=== PATIENT | male | born 1970 | race African-American/Black ===

== ENCOUNTER 2017-07-25 05:59 | Day surgery (SDC) | payer OTHER ==
[2017-07-24 09:57] VITALS: BMI 38.3
[~2017-07-25 05:59] MED LIST: Cyclopentolate 1% Opth Drop 2 ML BOT FS SCH; EPINEPHrine 0.3 MG, Dextrose 50% 3 ML in Ophthalmic Irrigation Solution 500 ML FS SCH; Phenylephrine HCl 2.5% Ophth Soln 5 ML BOT FS SCH
[2017-07-25] MEDS ORDERED: Midazolam HCl 2 mg/2 ml Vial ONE (06:17)
[2017-07-25] MEDS ORDERED: Fentanyl 100 MCG/2 ML VIAL ONE (06:17)
[2017-07-25] MEDS ORDERED: Diprivan 20 ML ONE (06:17)
[2017-07-25] MEDS ORDERED: Lidocaine 0.5%/Epinephrine 1:200,000 50 ml Vial ONE (06:17)
[2017-07-25] MEDS ORDERED: Lidocaine 2% w/Epinephrine 1:200K 20 ML VIAL ONE (06:18)
[2017-07-25] MEDS ORDERED: Lidocaine 2% PF 5 ML VIAL ONE (06:19)
[2017-07-25] MEDS ORDERED: Cyclopentolate 1% Opth Drop 2 ML BOT ONE (06:20)
[2017-07-25] MEDS ORDERED: Phenylephrine HCl 2.5% Ophth Soln 5 ML BOT ONE (06:20)
--- NOTE | 2017-07-25 13:34 | OP ---
DATE OF PROCEDURE: 07/25/2017 PREOPERATIVE DIAGNOSIS: Tractional retinal detachment, right eye. POSTOPERATIVE DIAGNOSIS: Tractional retinal detachment, right eye. PROCEDURE: Pars plana vitrectomy and tractional retinal detachment repair, right eye. SURGEON: Truman Waddell M.D. ANESTHESIA: Local with monitored anesthesia care. PROCEDURE IN DETAIL: The patient was identified in the preoperative holding area. Appropriate infor med consent for the planned surgical procedure on the right eye had been obtained. The patient was t ransported to the operative suite where appropriate cardiopulmonary monitoring was established. Loca l anesthesia was obtained using retrobulbar and modified Van Lint lid block using 50/50 mixture of 4% lidocaine and 0.75% bupivacaine. The patient was prepped and draped in the usual sterile manner for ophthalmic surgery on the right eye. Lid speculum was placed in the right eye. The 25-gauge trocar s were placed in conjunctiva and sclera supratemporally, inferotemporally, and supranasally and rogelio cristiana was placed inferior nasally. Light pipe and vitreous cutter were inserted into the eye. Core of vitrectomy was performed. Vitreus space was trimmed back 360 degrees. Attention was turned to th e dense posterior ring of fibrosis causing tractional detachment on the surface. This was grasped at one end and peeled away from the retinal surface. Intraocular pressure was elevated for bleeding st op and then decreased revealed no further bleeding. Tear along the inferior temporal arcade and whol e supratemporal arcade were identified. Complete air fluid exchange was performed with 10 minutes be ing allowed for fluid to drain posteriorly. Dense subretinal fluid was removed from underneath the r etina in the right eye. Panretinal photocoagulation was also placed and the peripheral areas of the retina up to the edge of the subretinal fluid. Further fluid was drained and laser was placed up to the arcade vessels. Silicone oil was infused into the eye, trocars were removed and sclerotomy was s utured closed. Retrobulbar Kenalog and subconjunctival Ancef were placed. Antibiotic ointment was p laced, and the eye was patched and shielded. The patient was taken to the postoperative recovery uni t in good condition suffered no immediate complications. DISCHARGE INSTRUCTIONS: The patient was instructed to keep patch and shield on, avoid flat on back p ositioning, and follow up in the morning with Dr. Waddell.
[2017-07-25] MEDS ORDERED: Lidocaine 1% PF 5 ML VIAL ONE (17:13)
[2017-07-25] MEDS ORDERED: Propofol 200 MG/20 ML VIAL ONE (17:13)
== END 2017-07-25 09:20 | disposition home or self-care (01) ==
LOC: SDC 05:59
PROVIDERS: ATTEND Ophthalmology Retina Specialist
PROC: 08QE3ZZ Repair Right Retina, Percutaneous Approach (ICD-10-PCS; principal; 2017-07-25)
PROC: 08B43ZZ Excision of Right Vitreous, Percutaneous Approach (ICD-10-PCS; principal; 2017-07-25)
DX: H33.41 Traction detachment of retina, right eye (principal); E78.00 Pure hypercholesterolemia, unspecified; E11.9 Type 2 diabetes mellitus without complications; I10 Essential (primary) hypertension; D86.9 Sarcoidosis, unspecified; Z79.4 Long term (current) use of insulin; Z79.899 Other long term (current) drug therapy; Z98.890 Other specified postprocedural states
CPT/HCPCS: 36416; C1814; J0171; J2001; J2250; J2704; J3010

== ENCOUNTER 2018-06-09 22:36 | Inpatient (IN) | payer BC ==
[2018-06-09] MEDS ORDERED: Lorazepam 2 MG/ML VIAL ONE ×2 (23:10→23:42)
[2018-06-09] MEDS ORDERED: Midazolam HCl 5 mg/ml Vial ONE (23:13)
[2018-06-09 23:16] LABS: #Lymphocytes 1.1 thou/uL (1.20-3.40); #Monocytes 0.6 thou/uL (0.11-0.59); %Basophils 0.2 % (0.0-1.0); %Eosinophils 0.2 % (0.0-10.0); %Lymphocytes 11.3 % (21.0-51.0); %Monocytes 6.3 % (0.0-10.0); Hemoglobin 10.8 g/dL (14.0-18.0); Mean Corpuscular HGB CONC 31.1 g/dL (32.0-36.0); Mean Corpuscular Hemoglobin 25.4 pg (27.0-31.0); Mean Corpuscular Volume 81.8 fL (78.0-98.0); Mean Platelet Volume 8.8 fL (7.4-10.4); Platelet Count 148 thou/uL (130-400); RBC Distribution Width 13.7 % (11.5-14.5); Red Blood Cell (RBC) Count 4.26 mill/uL (4.70-6.10); White Blood Cell (WBC) Count 9.8 thou/uL (4.8-10.8)
[2018-06-09 23:35] LABS: ALT (SGPT) 17 U/L (8-55); AST (SGOT) 11 U/L (5-34); Albumin 3.4 g/dL (3.5-5.0); Alkaline Phosphatase 136 U/L (40-150); Anion Gap 13 mmol/L (10-20); BUN (Urea Nitrogen) 41 mg/dL (8.9-20.6); Bilirubin, Total 0.2 mg/dL (0.2-1.2); Calc. Creatinine Clearance 0 mL/min (70-130); Calcium 8.6 mg/dL (7.8-10.44); Carbon Dioxide 23 mmol/L (22-29); Chloride 96 mmol/L (98-107); Estimated GFR-MDRD 19; Phosphorus 4.6 mg/dL (2.3-4.7); Potassium 4.4 mmol/L (3.5-5.1); Protein, Total 6.4 g/dL (6.0-8.3); Sodium 128 mmol/L (136-145)
[2018-06-09] MEDS ORDERED: Insulin Regular 300 UNITS/3 ML VIAL ONE (23:35)
[2018-06-09 23:39] LABS: CKMB 4.7 ng/mL (0-6.6); Troponin I 0.013 ng/mL (< 0.028)
[2018-06-09 23:44] LABS: Bilirubin Negative (Negative); Blood, Urine Small (Negative); Clarity CLOUDY (Clear); Glucose, Urine (Dipstick) >=1000 mg/dL (Negative); Leukocyte Negative (Negative); Nitrite Negative (Negative); Protein, Urine (Dipstick) 300 mg/dL (Neg-Trace); Specific Gravity, Urine 1.024 (1.002-1.036); Urobilinogen 0.2 mg/dL (0.2-1.0); pH, Urine 5.5 (5.0-9.0)
[2018-06-09 23:45] LABS: Glucose 861 mg/dL (70-105)
[2018-06-09] MEDS ORDERED: Insulin Regular 100 units/100 ml in NS IVPB SCH (23:45)
[2018-06-09 23:46] LABS: Pathc Cast-AUWi Flag 1.16 (0-2.49)
[2018-06-10 00:01] LABS: Bacteria/HPF 1+ HPF (None Seen); Hyaline Casts/LPF NONE SEEN LPF (0-3 Hyaline); Oval Fat Bodies/HPF None Seen HPF (None Seen); Renal Epithelial 0-3 HPF (0-3); Sperm/HPF None Seen HPF (None Seen); Transitional Epithelial NONE SEEN HPF (0-3); Trichomonas/HPF None Seen HPF (None Seen); Yeast-All Forms None Seen HPF (None Seen)
--- NOTE | 2018-06-10 00:08 | CT ---
CT HEAD NONCONTRAST: 06/09/2018 HISTORY: Altered mental status. COMPARISON: None available. FINDINGS: There is no evidence of an acute cortical infarction, hemorrhage, mass effect, or midline shift. The ventricular system is normal in size, shape, and position. A small mucus retention cyst is seen in the right maxillary antrum. There is mild mucosal thickening in the left maxillary antrum. The mast oid air cells are clear. There is increased density seen within the right globe, which could be rela zhao to either hemorrhage within the right globe or prior injury. Clinical correlation is recommended . No prior studies are available to evaluate for stability. The calvarial structures are intact. IMPRESSION: 1. Increased density within the right globe, which could be related to prior post surgical changes o r possibly hemorrhage. Mass, right globe, is felt less likely, but also a differential consideration . 2. No acute intracranial abnormalities demonstrated. The above findings, concerning the right globe, were discussed with Dr. Gaviria on 06/09/2018 at 2359 hours. CODE CR POS: DAVID
[2018-06-10 00:10] LABS: Acetaminophen Less than 6.0 mcg/mL (10.0-30.0); Alcohol Less than 10 mg/dL (Less than 10); Salicylate Less than 8.0 mg/dL (15.0-30.0)
[2018-06-10 00:36] LABS: ALV-art Gradient 23.305 (0-20); Actual Bicarbonate (HCO3a) 19.8 mEq/L (22-28); Analyzer IN Cardio ER; Base Excess (BEa) -6.2 mEq/L (-2.0 to +3.0); CO2 Tension 40.9 mmHg (35.0-45.0); Calcium, Ionized 1.16 mmol/L (1.12-1.30); Carboxyhemoglobin (COHb) 0.1 gm% (0.0-3.0); Hemoglobin (Hb) 11.4 g/dL (14.0-18.0); O2 Tension (PaO2) 75.3 mmHg (80.0-100.0); Potassium - ABG Lab 3.88 mmol/L (3.70-5.30); Puncture Site RBA
[2018-06-10] MEDS ORDERED: Lorazepam 2 MG/ML VIAL ONE (00:37)
[2018-06-10] MEDS ORDERED: CCU Electrolyte Replacement 1 EACH IVPB ONE (00:56)
[2018-06-10] MEDS ORDERED: Sodium Chloride 0.9% 1,000 ML IV PRN ×4 (00:56)
[2018-06-10] MEDS ORDERED: Dextrose 5 %-0.45 % NaCl 1,000 ML IV PRN (00:56)
[2018-06-10] MEDS ORDERED: NS 0.9% w/ 20 MEQ KCL 1,000 ML IV PRN (00:56)
[2018-06-10] MEDS ORDERED: D5 1/2 NS w/20 mEq KCL 1,000 ML IV PRN (00:56)
[2018-06-10] MEDS ORDERED: Acetaminophen 325 MG TAB PO PRN (00:59)
[2018-06-10] MEDS ORDERED: Ondansetron ODT 4 MG TAB PO PRN (00:59)
[2018-06-10] MEDS ORDERED: Ondansetron PF 4 MG/2 ML Vial IVP PRN (00:59)
[2018-06-10 01:19] LABS: Osmolality, Serum 344 mOsm/kg (280-295)
[2018-06-10] MEDS ORDERED: Potassium Chloride 40 MEQ in Sodium Chloride 0.9% 250 ML 250 ML IVPB PRN (01:20)
[2018-06-10] MEDS ORDERED: Potassium Chloride 20 MEQ TAB PO PRN (01:20)
[2018-06-10] MEDS ORDERED: CCU ELECTROLYTE REPLACEMENT PROTOCOL FS PRN (01:20)
[2018-06-10] MEDS ORDERED: Potassium Phosphate 12 MMOL in Sodium Chloride 0.9% 250 ML 250 ML IV PRN (01:20)
[2018-06-10] MEDS ORDERED: Magnesium Oxide 400 MG TAB PO PRN ×2 (01:20)
[2018-06-10] MEDS ORDERED: Potassium Chloride 40 MEQ in Premix Bag 1 BAG IVPB PRN (01:20)
[2018-06-10] MEDS ORDERED: Magnesium 2 GM/NS 0.9% 100 ML 2 GM in Premix Bag 1 BAG IVPB PRN (01:20)
[2018-06-10] MEDS ORDERED: Potassium Phosphate 9 MMOL in Sodium Chloride 0.9% 100 ML IVPB PRN (01:20)
[2018-06-10] MEDS ORDERED: Potassium Phosphate 15 MMOL in Sodium Chloride 0.9% 250 ML 250 ML IV PRN (01:20)
[2018-06-10] MEDS ORDERED: Labetalol HCl 100 MG/20 ML VIAL ONE (01:34)
[2018-06-10 01:48] LABS: Hemoglobin A1c 15.3 % (4.0-6.0)
[2018-06-10 01:57] LABS: Anion Gap 20 mmol/L (10-20); BUN (Urea Nitrogen) 42 mg/dL (8.9-20.6); Calc. Creatinine Clearance 0 mL/min (70-130); Calcium 8.7 mg/dL (7.8-10.44); Carbon Dioxide 18 mmol/L (22-29); Chloride 103 mmol/L (98-107); Estimated GFR-MDRD 18; Potassium 3.6 mmol/L (3.5-5.1); Sodium 137 mmol/L (136-145)
[2018-06-10 01:58] LABS: Cardiac Risk 6.6 (Less than 4.5)
[2018-06-10 02:01] LABS: Glucose 674 mg/dL (70-105)
[2018-06-10] MEDS ORDERED: Nitroglycerin 50 MG/250 ML BOT 250 ML ONE (03:18)
[2018-06-10] MEDS: NS 0.9% w/ 20 MEQ KCL 1,000 ML IV PRN ×2 (03:27→05:41)
[2018-06-10] MEDS: Nitroglycerin 50 MG/250 ML BOT 250 ML IVPB SCH ×2 (03:28→11:55)
[2018-06-10 03:32] VITALS: BMI 37.3
[2018-06-10 04:59] LABS: Amphetamine Not Detected (NotDetected); Barbiturates Screen Not Detected (NotDetected); Benzodiazepine Screen Not Detected (NotDetected); Cocaine Metabolite Screen Not Detected (NotDetected); Medtox Control Line Valid? VALID (VALID); Medtox Reader # READER 1; Methadone Not Detected (NotDetected); Methamphetamine Not Detected (NotDetected); Opiate Screen Not Detected (NotDetected); Oxycodone Screen Not Detected (NotDetected); Phencyclidine (PCP) Not Detected (NotDetected); THC/Cannabinoid Screen Not Detected (NotDetected); Tricyclic Screen Not Detected (NotDetected)
[2018-06-10 06:04] LABS: #Lymphocytes 0.8 thou/uL (1.20-3.40); #Monocytes 0.7 thou/uL (0.11-0.59); #Neutrophils 14.5 thou/uL (1.40-6.50); %Basophils 0.3 % (0.0-1.0); %Eosinophils 0.2 % (0.0-10.0); %Lymphocytes 4.7 % (21.0-51.0); %Monocytes 4.6 % (0.0-10.0); %Neutrophils 90.3 % (42.0-75.0); Anion Gap 16 mmol/L (10-20); BUN (Urea Nitrogen) 39 mg/dL (8.9-20.6); Calc. Creatinine Clearance 41 mL/min (70-130); Calcium 8.8 mg/dL (7.8-10.44); Carbon Dioxide 20 mmol/L (22-29); Chloride 109 mmol/L (98-107); Estimated GFR-MDRD 20; Glucose 306 mg/dL (70-105); Hemoglobin 10.5 g/dL (14.0-18.0); Mean Corpuscular HGB CONC 31.8 g/dL (32.0-36.0); Mean Corpuscular Hemoglobin 24.7 pg (27.0-31.0); Mean Corpuscular Volume 77.8 fL (78.0-98.0); Mean Platelet Volume 12.4 fL (7.4-10.4); Platelet Count 193 thou/uL (130-400); RBC Distribution Width 13.8 % (11.5-14.5); Red Blood Cell (RBC) Count 4.23 mill/uL (4.70-6.10); Sodium 141 mmol/L (136-145)
[2018-06-10 06:35] LABS: Albumin 3.4 g/dL (3.5-5.0); Anion Gap 15 mmol/L (10-20); BUN (Urea Nitrogen) 39 mg/dL (8.9-20.6); BUN/Creatinine Ratio 10.16; Calc. Creatinine Clearance 41 mL/min (70-130); Calcium 8.8 mg/dL (7.8-10.44); Carbon Dioxide 20 mmol/L (22-29); Chloride 110 mmol/L (98-107); Estimated GFR-MDRD 20; Glucose 314 mg/dL (70-105); Potassium 3.9 mmol/L (3.5-5.1); Sodium 141 mmol/L (136-145)
[2018-06-10] MEDS: Enoxaparin Sodium 30 MG/0.3 ML SYRINGE SC SCH (08:26)
[2018-06-10] MEDS ORDERED: Famotidine/PF 20 mg/2ml Vial SLOW IVP SCH (09:00)
[2018-06-10 09:26] LABS: Anion Gap 10 mmol/L (10-20); BUN (Urea Nitrogen) 38 mg/dL (8.9-20.6); Calc. Creatinine Clearance 43 mL/min (70-130); Calcium 8.4 mg/dL (7.8-10.44); Carbon Dioxide 23 mmol/L (22-29); Chloride 112 mmol/L (98-107); Estimated GFR-MDRD 21; Glucose 227 mg/dL (70-105); Potassium 4.1 mmol/L (3.5-5.1); Sodium 141 mmol/L (136-145)
--- NOTE | 2018-06-10 09:40 | RAD ---
PORTABLE CHEST: History: CCU follow up. Comparison: 02-28-18 FINDINGS/IMPRESSION: Poor inspiration. Mild cardiomegaly and vascular engorgement. No focal infiltrate or significant effu anne. POS: DAVID
[2018-06-10 10:56] LABS: Base Excess-Venous -15.1 mmol/L (0 (+/- 2.5)); Bicarbonate (HCO3v) 15.4 mmol/L (1.0-85.0); CO2 Tension (PvCO2) 54.2 mmHg (41.0-51.0); Calcium, Ionized 1.14 mmol/L (1.12-1.32); Hemoglobin - Calc 13.6 g/dL (12.0-18.0); Lactate 13.77 mmol/L (0.50-2.20); Potassium 3.4 mmol/L (3.4-4.7); vO2 Saturation-calc 65.3 % (94-98)
--- NOTE | 2018-06-10 11:08 | CON ---
DATE OF CONSULTATION: 06/10/2018 REASON FOR CONSULTATION: Elevated creatinine. HISTORY OF PRESENT ILLNESS: This is a 47-year-old gentleman who was admitted for hyperosmotic nonket otic coma. The patient's creatinine was 4.1 and has improved to 3.6 today. The patient is nonverbal and can give no further history. PAST MEDICAL HISTORY: Chronic kidney disease, hypertension, diabetes mellitus. The patient has some mental status changes. The patient has history of sarcoidosis. PAST SURGICAL HISTORY: Knee and shoulder surgery. SOCIAL HISTORY: No alcohol or drug use. FAMILY HISTORY: Negative for ESRD. HOME MEDICATIONS: List reviewed. HOSPITAL MEDICATIONS: List reviewed. REVIEW OF SYSTEMS: Unobtainable. PHYSICAL EXAMINATION: GENERAL: Patient is resting. VITAL SIGNS: Afebrile, pulse 90, breathing 16, blood pressure 224/180. OBJECTIVE: See above. Awake, alert, in no acute distress. GENERAL APPEARANCE AND MENTAL STATUS: Fair. HEAD/NECK: Normocephalic. Atraumatic. EYES: EOMI. No deformity. EARS: Clear. No ulcers. NOSE: Intact. No lesions. MOUTH: Clear. No discharge. THROAT: Clear. No exudate. LUNGS: Clear. No crackles. CARDIAC: S1, S2. No rub. ABDOMEN: Benign. BS+. GENITALIA/RECTUM: Schmidt absent. BACK/EXTREMITIES: Edema 0+ Ulcer- NEUROLOGICAL: The patient is nonverbal and cannot obey commands. SKIN: Rash- Bruise- LYMPHATICS: Edema- Ulcer- LABORATORY DATA: Creatinine 3.6. ASSESSMENT AND RECOMMENDATIONS: 1. Acute kidney with chronic kidney disease, stage 4, stable. 2. Hypertension, management per primary team. 3. Anemia, stable. 4. Medication based on glomerular filtration rate are appropriate. No indication for dialysis at th is time.
[2018-06-10 11:46] LABS: Glucose Greater than 700.0 mg/dL (70-105)
[2018-06-10] MEDS: Piperacillin/Tazobactam 2.25 GM in Sodium Chloride 0.9% 100 ML IVPB SCH ×2 (11:56→17:18)
--- NOTE | 2018-06-10 12:03 | HP ---
CHIEF COMPLAINT: Alteration of awareness. HISTORY OF PRESENT ILLNESS: This is a 47-year-old male with past medical history of diabetes mellitus type 2, hypertension, hyperlipidemia, presenting with alteration of awareness. Per the , patient was last seen well around 8 :00 a.m. prior to the time of admission. Patient's states that patient was walking in the house acting very unusual. Patient was confused for about 1.5 hours and patient was opening doors and closing doors and this was very unusual. Therefore, the became very concerned and called EMS. Upon review of the patient's chart, it was also noted that patient also vomited earlier during the day on the day of the admission. Of note, per the , patient has always had hyperglycemia. patient takes his medications, patient is always around the 400s. 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 At this point, patient is altered and confused. REVIEW OF SYSTEMS: Unable to be obtained, since patient is confused. PAST MEDICAL HISTORY: Hyperlipidemia, hypertension, sarcoidosis, diabetes mellitus type 2. PAST SURGICAL HISTORY: Bilateral knee surgery and left shoulder surgery. FAMILY HISTORY: Reviewed, noncontributory. PSYCHIATRIC HISTORY: No previous psychiatric history noted. SOCIAL HISTORY: Per records, patient does not use any illicit drugs. Patient does not smoke and patient does not drink. ALLERGIES: Per records, no known drug allergies. CURRENT MEDICATIONS: 1. Patient takes Lantus 100 units subcutaneous, patient takes 40 units b.i.d. 2. Humulin R 120 units. 3. Compazine. 4. Clonidine. 5. Dicyclomine. 6. Torsemide. 7. Dexilant. 8. Amoxicillin. PHYSICAL EXAMINATION: VITAL SIGNS: Blood pressure is 224/118, pulse of 98, respiratory rate of 14, temperature of 99.0, O2 saturation of 96 on room air. GENERAL: Patient is currently obtunded, lying in bed, snoring, obese looking. HEENT: Normocephalic, atraumatic. Pupils are equally round and reactive to light in the left eye and the left eye is sluggish; however, the right eye is more responsive to light. Patient is blind in the right eye. Mucous membranes are dry. NECK: Large neck circumference noted. No cervical lymphadenopathy. RESPIRATORY: Clear to auscultation bilaterally. No wheezing, no rales appreciated. CARDIOVASCULAR: Positive S1, S2. Regular rate and rhythm. No murmurs. No gallops or rubs appreciated. ABDOMEN: Obese abdomen, no palpable masses. No peritoneal signs seen. EXTREMITIES: 5/5 upper extremity strength and 5/5 lower extremity strength. Good pulses bilaterally at the upper and lower extremities. NEUROLOGIC: Patient is confused at this time. GCS of 9. IMAGING: EKG sinus rhythm. CT of the head, no acute intracranial pathology. ED COURSE: Patient received labetalol, Versed injection, Humulin R, Ativan injection, and normal chloride. LABORATORY DATA: White blood cell count is 9.8, hemoglobin is 10.8, hematocrit is 34.9, platelet is 148. ABG: pH is 7.3, pCO2 is 40.9, pO2 is 75.3, O2 saturation is 92. Toxicology is negative. Chemistry: Sodium is 128, potassium is 4.4, chloride is 96, carbon dioxide is 23, BUN is 41, creatinine is 4.10, GFR is 22, glucose is 861. Lactic acid is 1.0. AST, ALT 11 and 17. Troponin x1 is 0.013. ASSESSMENT AND PLAN: This is a 47-year-old male being admitted for: 1. Hyperosmolar hyperglycemic syndrome. At this point, patient has been started on diabetic ketoacidosis protocol. We are going to admit the patient to the CCU. We are going to monitor the patient closely. We will do BMP every 4 hours. We will follow up on electrolytes. We will replete all electrolytes. We will give patient IV hydration. We will monitor the patient closely. We will consider starting antibiotics if patient spikes a fever or if patient's WBC elevates, we will follow up on the morning labs. 1. Acute kidney injury, likely prerenal in etiology. At this time, patient's GFR is 22, we will start patient on gentle hydration. We will get Nephrology on the case. Because patient is encephalopathic, We are very concern for possible uremia. We will continue to monitor the patient closely. 2. Encephalopathy, most likely metabolic. At this point, we are managing the patient supportively. Nephrology is on consult. We will follow up with their recommendations. CT scan of the head is negative. We will replete all electrolyte abnormalities, we will trend creatinine. 3. History of diabetes mellitus, type 2, uncontrolled. At this point, patient is on insulin sliding scale. It will be very important for patient's blood glucose to be strictly controlled between 140-180. 4. History of hypertension, uncontrolled. Currently, we started patient on nitro drip, since the patient's blood pressure is elevated at 235 systolic. 5. Hypertensive encephalopathy. Patient is currently on nitro drip. We will continue this nitro drip to bring patient's blood pressure around 180 systolic. We will continue this current medication. We will continue this current management. 6. Deep venous thrombosis and gastrointestinal prophylaxis. MTDD
[2018-06-10] MEDS ORDERED: cefTRIAXone\\ROCEPHIN 1 GM in Sodium Chloride 0.9% 100 ML IVPB SCH (13:15)
[2018-06-10 14:53] LABS: Lactic Acid 1.2 mmol/L (0.5-2.2)
[2018-06-10] MEDS: Sodium Chloride 0.45% 1,000 ML IV SCH (16:15)
--- NOTE | 2018-06-10 16:45 | PDOC.EVN ---
Event Note - Event Note Event Note: Chart reviewed. Pt seen. Will follow.
--- NOTE | 2018-06-10 17:21 | CON ---
DATE OF CONSULTATION: 06/10/2018 HISTORY OF PRESENT ILLNESS: Mr. Jacobs is a 47-year-old male. History is obtained from the family. He has a long history of diabetes type 2 since he was in his 20s. He was managed for several years with oral agents and then insulin was added. He is followed by a primary care doctor at [facility]. He presented with altered mental status. His and his mother were at the bedside to give a history. He is still confused. Blood glucoses were over 800. He was placed on a DKA protocol, so his sugars have come down rapidly. We decreased his insulin dosing, especially in light of his renal insufficiency. His says he is blind in his right eye. She implies that he does not always check his blood sugars but does take his medicine. He has had no recent illness. He has been febrile since admission. I see blodd cultures ordered, but I cannot tell whether they have been collected from the computer. PAST MEDICAL HISTORY: Remarkable for hypertension and reportedly history of sarcoid, diabetes, lipid disorder, knee surgery, and shoulder surgery. SOCIAL HISTORY: Nonsmoker, nondrinker, nondrug user. MEDICATIONS: Prior to admission, he was on 80 units of Lantus a day for a total reportedly of 120 units of Humulin R, Compazine, clonidine, dicyclomine, Demadex, Dexilant, reportedly was on amoxicillin on admission. REVIEW OF SYSTEMS: Not obtainable. FAMILY HISTORY: Negative for lung disease at an early age. PHYSICAL EXAMINATION: VITAL SIGNS: He was apparently very hypertensive early in his admission with blood pressures as high as 213/91, blood pressure is better, but less than ideal at 178/94. He will open his eyes yes and no to questions but goes quickly back to sleep. Heart rate is 112, respiratory rates in the low 20s. NECK: Supple, no lymphadenopathy. LUNGS: Clear. HEART: Regular rhythm. I do not hear a murmur. ABDOMEN: Soft and nontender. EXTREMITIES: No clubbing, cyanosis, or edema. LABORATORY DATA: White count 16, hemoglobin 10.5, platelets 193. Sodium 141, potassium 4.1, chloride 112, bicarbonate 23, BUN 38, creatinine 3.68. IMPRESSION: 1. Hyperosmolar coma. We need to slow down on his insulin with his renal insufficiency. Continue with hydration paying careful attention to his volume status. 2. Sleep apnea. He is reportedly compliant with therapy at home. His did not bring his CPAP up. We will place him on BiPAP empirically. I do not have a copy of his sleep study to review. 3. Poorly controlled diabetes with a hemoglobin A1c of 15. He is already blind in an eye and has renal insufficiency. As I have explained to the family, we will have to become more compulsive about managing his glucose. Weight loss is absolutely imperative. We will currently treat him and keep him in the Critical Care Unit. Critical care time, 30 minutes. MARK
[2018-06-10] MEDS: Acetaminophen 1,000 MG in Premix Bag 1 BAG IVPB PRN (21:14)
[2018-06-11] MEDS: Piperacillin/Tazobactam 2.25 GM in Sodium Chloride 0.9% 100 ML IVPB SCH ×4 (00:48→17:16)
[2018-06-11] MEDS: Nitroglycerin 50 MG/250 ML BOT 250 ML IVPB SCH (00:52)
[2018-06-11] MEDS: Sodium Chloride 0.45% 1,000 ML IV SCH ×2 (03:37→11:50)
[2018-06-11] MEDS: Acetaminophen 1,000 MG in Premix Bag 1 BAG IVPB PRN (04:13)
[2018-06-11 06:23] LABS: Anion Gap 10 mmol/L (10-20); BUN (Urea Nitrogen) 31 mg/dL (8.9-20.6); Calc. Creatinine Clearance 37 mL/min (70-130); Calcium 8.5 mg/dL (7.8-10.44); Carbon Dioxide 20 mmol/L (22-29); Chloride 111 mmol/L (98-107); Estimated GFR-MDRD 18; Glucose 391 mg/dL (70-105); Potassium 4.4 mmol/L (3.5-5.1); Sodium 137 mmol/L (136-145)
[2018-06-11] MEDS: Amlodipine 10 MG TAB PO SCH (09:08)
[2018-06-11] MEDS: Famotidine 20 MG TAB PO SCH (09:08)
[2018-06-11] MEDS: Enoxaparin Sodium 30 MG/0.3 ML SYRINGE SC SCH (09:08)
[2018-06-11] MEDS ORDERED: Insulin Glargine 20 UNITS in Pre-Filled Syringe 1 EACH SC SCH (10:00)
[2018-06-11] MEDS ORDERED: Dextrose 5% in Water 1,000 ML IV PRN (10:09)
[2018-06-11] MEDS ORDERED: Dextrose 50% Abboject 50 ML SYRINGE IVP PRN (10:09)
[2018-06-11] MEDS ORDERED: Insulin Regular 300 UNITS/3 ML VIAL IVP SCH (10:15)
[2018-06-11] MEDS ORDERED: cloNIDine 0.1 MG TAB PO SCH (11:05)
[2018-06-11] MEDS: cloNIDine 0.1 MG TAB PO SCH ×2 (11:43→21:22)
[2018-06-11] MEDS: Doxazosin Mesylate 4 MG TAB PO SCH ×2 (11:45→11:50)
--- NOTE | 2018-06-11 12:03 | PRG ---
DATE OF SERVICE: 06/11/2018 SUBJECTIVE: A 47-year-old gentleman being seen for acute kidney injury. The patient remains oliguri c. PHYSICAL EXAMINATION: GENERAL: The patient is awake, alert. VITAL SIGNS: Pulse 100, breathing 16, blood pressure 132/96. OBJECTIVE: See above. Awake, alert, in no acute distress. GENERAL APPEARANCE AND MENTAL STATUS: Fair. HEAD/NECK: Normocephalic. Atraumatic. EYES: EOMI. No deformity. EARS: Clear. No ulcers. NOSE: Intact. No lesions. MOUTH: Clear. No discharge. THROAT: Clear. No exudate. LUNGS: Clear. No crackles. CARDIAC: S1, S2. No rub. ABDOMEN: Benign. BS+. GENITALIA/RECTUM: Schmidt absent. BACK/EXTREMITIES: Edema 0+ Ulcer- NEUROLOGICAL: The patient is aphasic. SKIN: Rash- Bruise- LYMPHATICS: Edema- Ulcer- LABORATORY: Hemoglobin 10.5, creatinine 4.2. ASSESSMENT AND RECOMMENDATIONS: 1. Chronic kidney disease stage 4, stable. 2. Hypertension, stable. 3. Anemia, stable. 4. Acute kidney injury, most likely due to progressive diabetic disease.
--- NOTE | 2018-06-11 15:40 | ULT ---
BILATERAL RENAL ULTRASOUND: Technique: Multiple longitudinal and transverse images of the kidneys and urinary bladder obtained us ing a multihertz curvilinear transducer. History: Acute renal insufficiency. FINDINGS: Real-time and color flow images demonstrates both kidneys to be of normal contour, axis and size. Rig ht kidney measures 12.0 and left kidney 11.7 cm from pole to pole. There is an area of hypoechogenicity seen in the lower pole of the left kidney. This may represent a possible lower pole left renal cyst. Correlate with follow up repeat images to confirm stability in 4 -6 months. There is an indwelling Schmidt catheter. IMPRESSION: No evidence of hydronephrosis. There may be a lower pole left renal cyst or hypodense solid mass. Cor relate with follow up images. POS: DAVID
--- NOTE | 2018-06-11 15:47 | PRG ---
DATE OF SERVICE: 06/11/2018 Mr. Jacobs is more alert. He wore BiPAP all evening, we had taken off this morning with plan to switch him to where he just wears it with sleep. PHYSICAL EXAMINATION: His hemodynamics are stable. LUNGS: Clear. CARDIOVASCULAR: Regular rhythm. ABDOMEN: Soft. EXTREMITIES: Without asymmetry. Renal function is deteriorated. His creatinine is 4.25. Sodium 137, potassium 4.4, chloride 111, bicarbonate 20, BUN 31. Nephrology was consulted. He has been given IV insulin, started on long-acting insulin. Blood glucoses are drifting up. He will be treated with sliding scale. The patient's showed me a picture of him 2 years ago and he was actually very slender muscular gentleman. It may be that for various reasons, he is on too much insulin, so will gradually pushing back into increasing doses of insulin until he is reasonably well controlled. He is at risk for renal failure in the near future. He is already blind in one eye. Even with aggressive diabetes control, his quality of life over the next few years is probably going to be quite poor. We will keep him in the Critical Care Unit at this time. MARK
[2018-06-11] MEDS: Insulin Regular 300 UNITS/3 ML VIAL SC PRN ×2 (16:25→21:20)
--- NOTE | 2018-06-11 18:09 | PDOC.PN ---
- Subjective Encounter Start Date: 06/11/18 Encounter Start Time: 10:40 Pt seen for followup re: HHNC. Sleepy but arousable, denies chest pain, shortness of breath, fevers or chills. - Objective Resuscitation Status: Resuscitation Status FULL:Full Resuscitation MAR Reviewed: Yes Vital Signs & Weight: Vital Signs (12 hours) Temp Pulse BP Pulse Ox 06/11/18 16:00 99.4 F 06/11/18 12:00 99.6 F 06/11/18 11:44 111 H 133/96 H 06/11/18 11:43 172/106 H 06/11/18 11:40 111 H 133/96 H 06/11/18 09:08 120 H 133/96 H 06/11/18 08:00 100.0 F H 100 Weight Weight 275 lb 2.19 oz Most Recent Monitor Data Heart Rate from ECG 88 NIBP 135/73 NIBP BP-Mean 93 Respiration from ECG 16 SpO2 100 I&O: 06/10/18 06/11/18 06/12/18 06:59 06:59 06:59 Intake Total 1247.6 3605 1541.8 Output Total 865 2805 1600 Balance 382.6 800 -58.2 Result Diagrams: 06/10/18 05:08 06/11/18 05:17 Additional Labs: Accuchecks 06/11/18 06/11/18 06/11/18 16:23 11:50 08:16 POC Glucose 496 H 412 H 431 H 06/11/18 06/11/18 06/11/18 07:09 06:06 04:04 POC Glucose 390 H 383 H 350 H 06/11/18 06/11/18 06/10/18 02:03 00:49 22:20 POC Glucose 311 H 373 H 328 H 06/10/18 06/10/18 20:20 18:31 POC Glucose 312 H 302 H EKG Reviewed by me: Yes (Tele: NSR) Phys Exam - Physical Examination Obese HEENT: moist MMs, sclera anicteric, oral pharynx no lesions, 2+ tonsils Neck: no nodes, no JVD, supple, full ROM Respiratory: no wheezing, no rales, no rhonchi, clear to auscultation bilateral Cardiovascular: RRR, no rub S1, S2 Gastrointestinal: soft, non-tender, positive bowel sounds distention Neurological: moves all 4 limbs Deviation from normal: Unable to assess affect or orientation to person, place or time Dx/Plan (1) HHNC (hyperglycemic hyperosmolar nonketotic coma) Code(s): E11.01 - TYPE 2 DIABETES MELLITUS WITH HYPEROSMOLARITY WITH COMA Status: Acute Comment: slowly improving (2) CKD (chronic kidney disease) stage 4, GFR 15-29 ml/min Code(s): N18.4 - CHRONIC KIDNEY DISEASE, STAGE 4 (SEVERE) Status: Chronic Comment: hold nephrotoxic meds, nephrology following (3) HTN (hypertension) Code(s): I10 - ESSENTIAL (PRIMARY) HYPERTENSION Status: Chronic Comment: controlled (4) Sarcoidosis Code(s): D86.9 - SARCOIDOSIS, UNSPECIFIED Status: Chronic Comment: stable - Plan * . Review of Systems - Medications/Allergies Allergies/Adverse Reactions: Allergies Allergy/AdvReac Type Severity Reaction Status Date / Time No Known Allergies Allergy Verified 07/24/17 09:57 Medications: Current Medications Acetaminophen (Tylenol) 650 mg PO Q4H PRN PRN Reason: Headache/Fever/Mild Pain (1-3) Amlodipine Besylate (Norvasc) 10 mg PO DAILY [facility] Last Admin: 06/11/18 09:08 Dose: 10 mg Clonidine (Catapres) 0.1 mg PO TID [facility] Last Admin: 06/11/18 11:43 Dose: 0.1 mg Dextrose/Water (Dextrose 50%) 25 gm IVP PRN PRN PRN Reason: HYPOGLYCEMIA PROTOCOL Diltiazem HCl (Cardizem Cd) 120 mg PO DAILY [facility] Last Admin: 06/11/18 11:44 Dose: 120 mg Doxazosin Mesylate (Cardura) 8 mg PO DAILY [facility] Last Admin: 06/11/18 11:43 Dose: 8 mg Enoxaparin Sodium (Lovenox) 30 mg SC 0900 [facility] Last Admin: 06/11/18 09:08 Dose: 30 mg Famotidine (Pepcid) 20 mg PO DAILY [facility] Last Admin: 06/11/18 09:08 Dose: 20 mg Glucagon (Glucagon) 1 mg IM PRN PRN PRN Reason: HYPOGLYCEMIA PROTOCOL Insulin Human Regular 100 (units/ Sodium Chloride) 101 mls @ 0 mls/hr IVPB INF JANETTE; Protocol Last Admin: 06/10/18 06:32 Dose: 101 mls Sodium Chloride (Normal Saline 0.9%) 1,000 mls @ 500 mls/hr IV .Q2H PRN; Protocol PRN Reason: Step 1 of DKA Protocol Sodium Chloride (Normal Saline 0.9%) 1,000 mls @ 1,000 mls/hr IV .Q1H PRN; Protocol PRN Reason: Step 1 of DKA Protocol Sodium Chloride (Normal Saline 0.9%) 1,000 mls @ 250 mls/hr IV .Q4H PRN; Protocol PRN Reason: SEE STEP 3 OF DKA PROTOCOL Sodium Chloride (Normal Saline 0.9%) 1,000 mls @ 500 mls/hr IV .Q2H PRN; Protocol PRN Reason: Step 2 of DKA Protocol Potassium Chloride/Sodium Chloride (Ns 0.9% W/ 20 Meq Kcl) 1,000 mls @ 500 mls/ hr IV .Q2H PRN; Protocol PRN Reason: Step 2 of DKA Protocol Last Admin: 06/10/18 05:41 Dose: 1,000 mls Potassium Chloride/Sodium Chloride (Ns 0.9% W/ 20 Meq Kcl) 1,000 mls @ 250 mls/ hr IV .Q4H PRN; Protocol PRN Reason: SEE STEP 3 OF DKA PROTOCOL Nitroglycerin/Dextrose (Nitroglycerin 50 Mg/250 Ml Bot) 250 mls @ 0 mls/hr IVPB INF JANETTE; Protocol Last Admin: 06/11/18 00:52 Dose: 250 mls Piperacillin Sod/Tazobactam (Sod 2.25 gm/ Sodium Chloride) 100 mls @ 200 mls/ hr IVPB Q6HR JANETTE Last Admin: 06/11/18 17:16 Dose: 100 mls Sodium Chloride (1/2 Normal Saline) 1,000 mls @ 100 mls/hr IV .Q10H JANETTE Last Admin: 06/11/18 11:50 Dose: 1,000 mls Acetaminophen 1,000 mg/ Device 100 mls @ 400 mls/hr IVPB Q6H PRN PRN Reason: Fever Stop: 06/11/18 21:02 Last Admin: 06/11/18 04:13 Dose: 100 mls Insulin Glargine 20 units/ (Miscellaneous Medication) 0.2 mls @ 0 mls/hr SC QAM JANETTE Dextrose/Water (D5w) 1,000 mls @ 0 mls/hr IV INF PRN PRN Reason: HYPOGLYCEMIA PROTOCOL Insulin Human Regular (Humulin R) 0 units SC .MODERATE SLIDING SC PRN; Protocol PRN Reason: MODERATE SLIDING SCALE Last Admin: 06/11/18 16:25 Dose: 10 units Miscellaneous Medication (Pharmacy To Dose) 1 each IVPB PRN PRN PRN Reason: Pharmacy to dose Ondansetron HCl (Zofran Odt) 4 mg PO Q6H PRN PRN Reason: Nausea/Vomiting Ondansetron HCl (Zofran) 4 mg IVP Q6H PRN PRN Reason: Nausea/Vomiting Sodium Chloride (Flush - Normal Saline) 10 ml IVF Q12HR JANETTE Last Admin: 06/11/18 10:39 Dose: 10 ml Sodium Chloride (Flush - Normal Saline) 10 ml IVF PRN PRN PRN Reason: Saline Flush
[2018-06-11] MEDS: Heparin 5,000 UNITS/ML VIAL SC SCH (21:17)
[2018-06-12] MEDS: Sodium Chloride 0.45% 1,000 ML IV SCH ×3 (00:03→15:23)
[2018-06-12] MEDS: Amlodipine 10 MG TAB PO SCH (05:27)
[2018-06-12] MEDS: Piperacillin/Tazobactam 2.25 GM in Sodium Chloride 0.9% 100 ML IVPB SCH ×3 (05:28→11:14)
[2018-06-12] MEDS: cloNIDine 0.1 MG TAB PO SCH ×3 (05:29→20:13)
[2018-06-12 05:33] LABS: Anion Gap 11 mmol/L (10-20); BUN (Urea Nitrogen) 35 mg/dL (8.9-20.6); Calc. Creatinine Clearance 35 mL/min (70-130); Calcium 8.8 mg/dL (7.8-10.44); Carbon Dioxide 22 mmol/L (22-29); Chloride 112 mmol/L (98-107); Estimated GFR-MDRD 17; Glucose 350 mg/dL (70-105); Potassium 4.3 mmol/L (3.5-5.1); Sodium 141 mmol/L (136-145)
[2018-06-12] MEDS ORDERED: Doxazosin Mesylate 4 MG TAB PO SCH ×2 (05:45→09:00)
[2018-06-12] MEDS: Insulin Regular 300 UNITS/3 ML VIAL SC PRN ×5 (05:49→20:15)
[2018-06-12] MEDS ORDERED: Artificial Tears 18 DROP/0.9 ML EA EYE PRN (08:26)
[2018-06-12] MEDS ORDERED: Senokot S 8.6-50 MG TAB PO PRN (08:26)
[2018-06-12] MEDS ORDERED: Loperamide HCl 2 MG CAP PO PRN (08:26)
[2018-06-12] MEDS ORDERED: Sodium Chloride 0.65% Nasal 44 ML BOT EA NARE PRN (08:26)
[2018-06-12] MEDS ORDERED: Loratadine 10 MG TAB PO PRN (08:26)
[2018-06-12] MEDS ORDERED: Eucerin (Mineral Oil/Petrolatum,White) 30 gm Jar TOP PRN (08:26)
[2018-06-12] MEDS ORDERED: Temazepam 15 MG CAP PO PRN (08:26)
[2018-06-12] MEDS ORDERED: Acetaminophen 500 MG TAB PO PRN (08:26)
[2018-06-12] MEDS ORDERED: Bisacodyl 10 MG SUPP PR PRN (08:26)
[2018-06-12] MEDS ORDERED: Diabetic Tussin 200 MG/10 ML UDCUP PO PRN (08:26)
[2018-06-12] MEDS: Heparin 5,000 UNITS/ML VIAL SC SCH ×3 (08:29→20:13)
[2018-06-12] MEDS: Doxazosin Mesylate 4 MG TAB PO SCH (08:32)
[2018-06-12] MEDS: Famotidine 20 MG TAB PO SCH (08:32)
[2018-06-12] MEDS ORDERED: Insulin Glargine 20 UNITS in Pre-Filled Syringe 1 EACH SC SCH (09:00)
[2018-06-12] MEDS ORDERED: Sodium Chloride 0.9% 1,000 ML IV SCH (09:15)
[2018-06-12] MEDS: Insulin Glargine 30 UNITS in Pre-Filled Syringe 1 EACH SC SCH (09:29)
--- NOTE | 2018-06-12 11:01 | PDOC.PN ---
- Subjective Encounter Start Date: 06/12/18 Encounter Start Time: 09:25 -: old records requested/rev Patient seen and examined. No new complaints. No overnight events - Objective Resuscitation Status: Resuscitation Status FULL:Full Resuscitation MAR Reviewed: Yes Vital Signs & Weight: Vital Signs (12 hours) Temp Pulse Resp BP Pulse Ox 06/12/18 09:51 98.8 F 06/12/18 09:40 78 182/98 H 06/12/18 09:39 78 182/98 H 06/12/18 07:44 100 06/12/18 05:29 185/99 H 06/12/18 05:28 90 185/99 H 06/12/18 05:27 90 185/99 H 06/12/18 03:57 99.0 F 06/12/18 02:55 97 14 100 06/12/18 00:00 98.8 F Weight Weight 275 lb 2.19 oz Most Recent Monitor Data Heart Rate from ECG 76 NIBP 158/90 NIBP BP-Mean 112 Respiration from ECG 14 SpO2 100 I&O: 06/11/18 06/12/18 06/13/18 06:59 06:59 06:59 Intake Total 3605 2916.8 480 Output Total 2805 3520 675 Balance 800 -603.2 -195 Result Diagrams: 06/10/18 05:08 06/12/18 04:27 Additional Labs: Accuchecks 06/12/18 06/11/18 06/11/18 08:19 21:16 16:23 POC Glucose 352 H 386 H 496 H 06/11/18 06/11/18 11:50 00:49 POC Glucose 412 H 373 H Radiology Reviewed by me: Yes EKG Reviewed by me: Yes (nsr) Phys Exam - Physical Examination Constitutional: NAD HEENT: PERRLA, moist MMs, sclera anicteric Neck: no JVD, supple Respiratory: no wheezing, no rales, no rhonchi Cardiovascular: RRR, no significant murmur, no rub Gastrointestinal: soft, non-tender, no distention, positive bowel sounds Musculoskeletal: no edema, pulses present Neurological: non-focal, normal sensation Lymphatic: no nodes Psychiatric: normal affect Skin: no rash, normal turgor Dx/Plan (1) HHNC (hyperglycemic hyperosmolar nonketotic coma) Code(s): E11.01 - TYPE 2 DIABETES MELLITUS WITH HYPEROSMOLARITY WITH COMA Status: Acute Comment: slowly improving (2) CKD (chronic kidney disease) stage 4, GFR 15-29 ml/min Code(s): N18.4 - CHRONIC KIDNEY DISEASE, STAGE 4 (SEVERE) Status: Chronic Comment: hold nephrotoxic meds, nephrology following (3) Dyslipidemia Code(s): E78.5 - HYPERLIPIDEMIA, UNSPECIFIED Status: Chronic (4) HTN (hypertension) Code(s): I10 - ESSENTIAL (PRIMARY) HYPERTENSION Status: Chronic Comment: controlled (5) Sarcoidosis Code(s): D86.9 - SARCOIDOSIS, UNSPECIFIED Status: Chronic Comment: stable - Plan cont current plan of care * continue IVF * continue empiric zosyn * medication reviewed * today lantus dose increase * medication reviewed as below * symptomatic treatment * overall stable * will consider transfer to floor when pulmonary ok. Review of Systems - Review of Systems Other: not reliable with pt due to his current alertness and slow to respond - Medications/Allergies Allergies/Adverse Reactions: Allergies Allergy/AdvReac Type Severity Reaction Status Date / Time No Known Allergies Allergy Verified 07/24/17 09:57 Medications: Current Medications Acetaminophen (Tylenol) 500 mg PO Q6H PRN PRN Reason: Mild Pain (1-3) Amlodipine Besylate (Norvasc) 10 mg PO DAILY [facility] Last Admin: 06/12/18 05:27 Dose: 10 mg Artificial Tears (Tears Naturale) 2 drop EA EYE PRN PRN PRN Reason: Dry Eyes Bisacodyl (Dulcolax) 10 mg [place] DAILYPRN PRN PRN Reason: Constipation Clonidine (Catapres) 0.1 mg PO TID [facility] Last Admin: 06/12/18 05:29 Dose: 0.1 mg Dextrose/Water (Dextrose 50%) 25 gm IVP PRN PRN PRN Reason: HYPOGLYCEMIA PROTOCOL Diltiazem HCl (Cardizem Cd) 120 mg PO DAILY [facility] Last Admin: 06/12/18 05:28 Dose: 120 mg Doxazosin Mesylate (Cardura) 8 mg PO DAILY [facility] Last Admin: 06/12/18 08:32 Dose: 8 mg Famotidine (Pepcid) 20 mg PO DAILY [facility] Last Admin: 06/12/18 08:32 Dose: 20 mg Glucagon (Glucagon) 1 mg IM PRN PRN PRN Reason: HYPOGLYCEMIA PROTOCOL Guaifenesin (Robitussin Sf) 200 mg PO Q4H PRN PRN Reason: Cough Heparin Sodium (Porcine) (Heparin) 5,000 units SC TID [facility] Last Admin: 06/12/18 08:29 Dose: 5,000 units Hydralazine HCl (Apresoline) 10 mg SLOW IVP Q4H PRN PRN Reason: SBP > 180 and HR < 70 Nitroglycerin/Dextrose (Nitroglycerin 50 Mg/250 Ml Bot) 250 mls @ 0 mls/hr IVPB INF [facility]; Protocol Last Admin: 06/11/18 00:52 Dose: 250 mls Piperacillin Sod/Tazobactam (Sod 2.25 gm/ Sodium Chloride) 100 mls @ 200 mls/ hr IVPB Q6HR [facility] Last Admin: 06/12/18 05:28 Dose: 100 mls Dextrose/Water (D5w) 1,000 mls @ 0 mls/hr IV INF PRN PRN Reason: HYPOGLYCEMIA PROTOCOL Insulin Glargine 30 units/ (Miscellaneous Medication) 0.3 mls @ 0 mls/hr SC QAM [facility] Last Admin: 06/12/18 09:29 Dose: 0.3 mls Sodium Chloride (Normal Saline 0.9%) 1,000 mls @ 100 mls/hr IV .Q10H [facility] Last Admin: 06/12/18 09:29 Dose: 1,000 mls Insulin Human Regular (Humulin R) 0 units SC .MODERATE SLIDING SC PRN; Protocol PRN Reason: MODERATE SLIDING SCALE Last Admin: 06/12/18 08:30 Dose: 10 units Loperamide HCl (Imodium) 2 mg PO PRN PRN PRN Reason: Diarrhea/Loose Stools Loratadine (Claritin) 10 mg PO DAILYPRN PRN PRN Reason: Sinus Symptoms Mineral Oil/White Petrolatum (Eucerin Cream) 0 gm TOP BIDPRN PRN PRN Reason: Dry Skin Miscellaneous Medication (Pharmacy To Dose) 1 each IVPB PRN PRN PRN Reason: Pharmacy to dose Ondansetron HCl (Zofran Odt) 4 mg PO Q6H PRN PRN Reason: Nausea/Vomiting Ondansetron HCl (Zofran) 4 mg IVP Q6H PRN PRN Reason: Nausea/Vomiting Senna/Docusate Sodium (Senokot S) 2 tab PO BID PRN PRN Reason: Constipation Sodium Chloride (Flush - Normal Saline) 10 ml IVF Q12HR [facility] Last Admin: 06/12/18 08:33 Dose: 10 ml Sodium Chloride (Flush - Normal Saline) 10 ml IVF PRN PRN PRN Reason: Saline Flush Sodium Chloride ([place] Nasal [place] 0.65%) 0 ml EA NARE QIDPRN PRN PRN Reason: Nasal Congestion Temazepam (Restoril) 15 mg PO HSPRN PRN PRN Reason: Insomnia
--- NOTE | 2018-06-12 13:25 | PRG ---
DATE OF SERVICE: 06/12/2018 He continues to slowly awaken. He is in no distress. PHYSICAL EXAMINATION: VITAL SIGNS: Blood pressure 140/91, heart rates in the 90s in sinus rhythm, respiratory rate in the teens. LUNGS: Clear. HEART: Regular rhythm. Abdomen is soft. We decreased his IV fluids. His intake and output was surprisingly negative 603 so we will have to watch his fluids closely as he may have hyperglycemia induced diuresis and ended with blood pressure issues and hyperglycemia again . His creatinine appears to be stabilizing at 4.49. His potassium is 4.3. His insulin was adjusted. IMPRESSION: 1. Status post hyperosmolar coma. 2. Type 2 diabetes with renal and retinal issues. 3. Obesity with a massive weight gain over the last 1-2 years ? eating to keep up with his insulin. According to the admission notes. He was receiving close to 200 units of insulin a day and gradually and reintroducing his insulin, hopefully to get him to a manageable level and then hopefully this wi ll facilitate some weight loss. He probably should remain in the Critical Care Unit or at least the Intermediate Care Unit for a while.
--- NOTE | 2018-06-12 22:55 | PRG ---
DATE OF SERVICE: 06/12/2018 SUBJECTIVE: This is a 47-year-old female being seen for acute kidney injury. The patient denies any nausea, vomiting or chest pain. PHYSICAL EXAMINATION: GENERAL: Patient is awake, alert. VITAL SIGNS: Afebrile, pulse 75, breathing 16, blood pressure 131/86. GENERAL APPEARANCE AND MENTAL STATUS: Fair. HEAD/NECK: Normocephalic. Atraumatic. EYES: EOMI. No deformity. EARS: Clear. No ulcers. NOSE: Intact. No lesions. MOUTH: Clear. No discharge. THROAT: Clear. No exudate. LUNGS: Clear. No crackles. CARDIAC: S1, S2. No rub. ABDOMEN: Benign. BS+. GENITALIA/RECTUM: Schmidt absent. BACK/EXTREMITIES: Edema 0+ Ulcer- NEUROLOGICAL: Alert and motor intact. SKIN: Rash- Bruise- LYMPHATICS: Edema- Ulcer- LABORATORY: Hemoglobin 10.5, creatinine 4.2. ASSESSMENT: 1. Acute kidney injury with chronic kidney disease, with rising creatinine. The patient's baseline was 3.4 on 05/15 at [facility]. 2. Hypertension, stable. 3. Anemia, stable. 4. Medication based on glomerular filtration rate appropriate.
[2018-06-13] MEDS: Sodium Chloride 0.45% 1,000 ML IV SCH ×3 (01:28→21:03)
[2018-06-13] MEDS: Insulin Regular 300 UNITS/3 ML VIAL SC PRN ×4 (05:16→20:36)
[2018-06-13] MEDS: hydrALAZINE 20 MG/ML VIAL SLOW IVP PRN (05:19)
[2018-06-13 05:21] LABS: Anion Gap 14 mmol/L (10-20); BUN (Urea Nitrogen) 32 mg/dL (8.9-20.6); Calc. Creatinine Clearance 42 mL/min (70-130); Calcium 8.9 mg/dL (7.8-10.44); Carbon Dioxide 19 mmol/L (22-29); Chloride 112 mmol/L (98-107); Estimated GFR-MDRD 21; Glucose 225 mg/dL (70-105); Potassium 3.8 mmol/L (3.5-5.1); Sodium 141 mmol/L (136-145)
[2018-06-13] MEDS ORDERED: Dextrose 5% in Water 1,000 ML IV PRN (07:29)
[2018-06-13 08:22] LABS: Magnesium 2.2 mg/dL (1.6-2.6); Phosphorus 3.9 mg/dL (2.3-4.7)
[2018-06-13] MEDS: Doxazosin Mesylate 4 MG TAB PO SCH (08:31)
[2018-06-13] MEDS: cloNIDine 0.1 MG TAB PO SCH ×3 (08:32→20:34)
[2018-06-13] MEDS: Famotidine 20 MG TAB PO SCH (08:32)
[2018-06-13] MEDS: Amlodipine 10 MG TAB PO SCH (08:32)
[2018-06-13] MEDS: Heparin 5,000 UNITS/ML VIAL SC SCH ×3 (08:33→20:35)
[2018-06-13] MEDS: Insulin Glargine 30 UNITS in Pre-Filled Syringe 1 EACH SC SCH (08:35)
--- NOTE | 2018-06-13 08:57 | PRG ---
DATE OF SERVICE: 06/13/2018 The patient is not saying much, but appears to be doing okay. PHYSICAL EXAMINATION: VITAL SIGNS: Temperature 98.6, pulse 98, blood pressure 131/92, O2 saturation 100%, intake for 24 ho urs 3357, output 2690. HEENT: Unremarkable. NECK: No JVD. CHEST: Clear without wheezing. CARDIAC: S1 and S2 regular. ABDOMEN: Soft. EXTREMITIES: No edema. LABORATORY DATA: Sodium 141, potassium 3.8, chloride 112, CO2 19, BUN 32, creatinine 3.7, glucose 22 5. ASSESSMENT: 1. Status post hyperosmolar nonketotic hyperglycemia with coma. 2. 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 3. Massive obesity. 4. Hypertension. PLAN: The patient is stable enough to transfer to the medical floor. [facility] of his obstructive sleep apnea. His insulin is being managed by the hospitalist aníbal downey. No further Pulmonary Critical Care recommendations at this time.
--- NOTE | 2018-06-13 11:34 | PDOC.PN ---
- Subjective Encounter Start Date: 06/13/18 Encounter Start Time: 08:40 Patient seen and examined. No new complaints. No overnight events - Objective Resuscitation Status: Resuscitation Status FULL:Full Resuscitation MAR Reviewed: Yes Vital Signs & Weight: Vital Signs (12 hours) Temp Pulse Resp BP BP Pulse Ox 06/13/18 10:37 98.3 F 94 16 178/91 H 94 L 06/13/18 08:42 96 171/92 H 06/13/18 08:32 96 171/92 H 06/13/18 08:00 98.6 F 06/13/18 07:10 100 06/13/18 07:00 98.6 F 06/13/18 05:19 68 208/103 H 06/13/18 04:00 98.7 F 06/13/18 02:24 68 13 99 06/13/18 00:00 98.2 F Weight Weight 275 lb 2.19 oz Most Recent Monitor Data Heart Rate from ECG 97 NIBP 158/81 NIBP BP-Mean 106 Respiration from ECG 24 SpO2 100 I&O: 06/12/18 06/13/18 06/14/18 06:59 06:59 06:59 Intake Total 2916.8 3357 960 Output Total 3520 2690 210 Balance -603.2 667 750 Result Diagrams: 06/10/18 05:08 06/13/18 04:41 Additional Labs: Accuchecks 06/13/18 06/12/18 06/12/18 05:14 20:09 15:51 POC Glucose 224 H 185 H 204 H 06/12/18 05:48 POC Glucose 331 H Phys Exam - Physical Examination Constitutional: NAD HEENT: PERRLA, moist MMs, sclera anicteric Neck: no JVD, supple Respiratory: no wheezing, no rales, no rhonchi Cardiovascular: RRR, no significant murmur, no rub Gastrointestinal: soft, non-tender, no distention, positive bowel sounds Musculoskeletal: no edema, pulses present Neurological: non-focal, normal sensation Lymphatic: no nodes Psychiatric: normal affect Skin: no rash, normal turgor Dx/Plan (1) HHNC (hyperglycemic hyperosmolar nonketotic coma) Code(s): E11.01 - TYPE 2 DIABETES MELLITUS WITH HYPEROSMOLARITY WITH COMA Status: Resolved Comment: (2) CKD (chronic kidney disease) stage 4, GFR 15-29 ml/min Code(s): N18.4 - CHRONIC KIDNEY DISEASE, STAGE 4 (SEVERE) Status: Chronic Comment: (3) Dyslipidemia Code(s): E78.5 - HYPERLIPIDEMIA, UNSPECIFIED Status: Chronic (4) HTN (hypertension) Code(s): I10 - ESSENTIAL (PRIMARY) HYPERTENSION Status: Chronic Comment: (5) Sarcoidosis Code(s): D86.9 - SARCOIDOSIS, UNSPECIFIED Status: Chronic Comment: (6) Obesity (BMI 30-39.9) Code(s): E66.9 - OBESITY, UNSPECIFIED Status: Chronic - Plan cont current plan of care * add lantus 10 unit at bedtime * transferred to medical floor * ambulate, consult PT * medication reviewed as below * symptomatic treatment * monitor renal function, nephrology following * add hydralazine 25 mg po bid. * cpap during night Review of Systems - Review of Systems ENT: negative: Ear Pain, Ear Discharge, Nose Pain, Nose Discharge, Nose Congestion, Mouth Pain, Mouth Swelling, Throat Pain, Throat Swelling, Other Respiratory: negative: Cough, Dry, Shortness of Breath, Hemoptysis, SOB with Excertion, Pleuritic Pain, Sputum, Wheezing Cardiovascular: negative: chest pain, palpitations, orthopnea, paroxysmal nocturnal dyspnea, edema, light headedness, other Gastrointestinal: negative: Nausea, Vomiting, Abdominal Pain, Diarrhea, Constipation, Melena, Hematochezia, Other Genitourinary: negative: Dysuria, Frequency, Incontinence, Hematuria, Retention , Other Musculoskeletal: negative: Neck Pain, Shoulder Pain, Arm Pain, Back Pain, Hand Pain, Leg Pain, Foot Pain, Other - Medications/Allergies Allergies/Adverse Reactions: Allergies Allergy/AdvReac Type Severity Reaction Status Date / Time No Known Allergies Allergy Verified 07/24/17 09:57 Medications: Current Medications Acetaminophen (Tylenol) 500 mg PO Q6H PRN PRN Reason: Mild Pain (1-3) Amlodipine Besylate (Norvasc) 10 mg PO DAILY [facility] Last Admin: 06/13/18 08:32 Dose: 10 mg Artificial Tears (Tears Naturale) 2 drop EA EYE PRN PRN PRN Reason: Dry Eyes Bisacodyl (Dulcolax) 10 mg [place] DAILYPRN PRN PRN Reason: Constipation Clonidine (Catapres) 0.1 mg PO TID [facility] Last Admin: 06/13/18 08:32 Dose: 0.1 mg Dextrose/Water (Dextrose 50%) 25 gm IVP PRN PRN PRN Reason: HYPOGLYCEMIA PROTOCOL Diltiazem HCl (Cardizem Cd) 120 mg PO DAILY [facility] Last Admin: 06/13/18 08:42 Dose: 120 mg Doxazosin Mesylate (Cardura) 8 mg PO DAILY [facility] Last Admin: 06/13/18 08:31 Dose: 8 mg Famotidine (Pepcid) 20 mg PO DAILY [facility] Last Admin: 06/13/18 08:32 Dose: 20 mg Glucagon (Glucagon) 1 mg IM PRN PRN PRN Reason: HYPOGLYCEMIA PROTOCOL Guaifenesin (Robitussin Sf) 200 mg PO Q4H PRN PRN Reason: Cough Heparin Sodium (Porcine) (Heparin) 5,000 units SC TID [facility] Last Admin: 06/13/18 08:33 Dose: 5,000 units Hydralazine HCl (Apresoline) 10 mg SLOW IVP Q4H PRN PRN Reason: SBP > 180 and HR < 70 Last Admin: 06/13/18 05:19 Dose: 10 mg Dextrose/Water (D5w) 1,000 mls @ 0 mls/hr IV INF PRN PRN Reason: HYPOGLYCEMIA PROTOCOL Insulin Glargine 30 units/ (Miscellaneous Medication) 0.3 mls @ 0 mls/hr SC QAM [facility] Last Admin: 06/13/18 08:35 Dose: 0.3 mls Sodium Chloride (1/2 Normal Saline) 1,000 mls @ 100 mls/hr IV .Q10H [facility] Last Admin: 06/13/18 10:26 Dose: Not Given Insulin Glargine 10 units/ (Miscellaneous Medication) 0.1 mls @ 0 mls/hr SC [facility] Dextrose/Water (D5w) 1,000 mls @ 0 mls/hr IV .Q0M PRN PRN Reason: Hypoglycemia Insulin Human Regular (Humulin R) 0 units [place] .MODERATE SLIDING SC PRN; Protocol PRN Reason: MODERATE SLIDING SCALE Last Admin: 06/13/18 05:16 Dose: 4 units Loperamide HCl (Imodium) 2 mg PO PRN PRN PRN Reason: Diarrhea/Loose Stools Loratadine (Claritin) 10 mg PO DAILYPRN PRN PRN Reason: Sinus Symptoms Mineral Oil/White Petrolatum (Eucerin Cream) 0 gm TOP BIDPRN PRN PRN Reason: Dry Skin Ondansetron HCl (Zofran Odt) 4 mg PO Q6H PRN PRN Reason: Nausea/Vomiting Ondansetron HCl (Zofran) 4 mg IVP Q6H PRN PRN Reason: Nausea/Vomiting Senna/Docusate Sodium (Senokot S) 2 tab PO BID PRN PRN Reason: Constipation Sodium Chloride (Flush - Normal Saline) 10 ml IVF Q12HR [facility] Last Admin: 06/13/18 08:42 Dose: 10 ml Sodium Chloride (Flush - Normal Saline) 10 ml IVF PRN PRN PRN Reason: Saline Flush Sodium Chloride ([place] Nasal [place] 0.65%) 0 ml EA NARE QIDPRN PRN PRN Reason: Nasal Congestion Temazepam (Restoril) 15 mg PO HSPRN PRN PRN Reason: Insomnia
--- NOTE | 2018-06-13 18:59 | PRG ---
DATE OF SERVICE: 06/13/2018 SUBJECTIVE: A 47-year-old gentleman being seen for acute kidney injury. The patient denies any naus ea, vomiting or chest pain. OBJECTIVE: GENERAL: Patient is awake, alert. VITAL SIGNS: Afebrile, pulse 84, breathing at 16, blood pressure 149/87. HEAD/NECK: Normocephalic. Atraumatic. EYES: EOMI. No deformity. EARS: Clear. No ulcers. NOSE: Intact. No lesions. MOUTH: Clear. No discharge. THROAT: Clear. No exudate. LUNGS: Clear. No crackles. CARDIAC: S1, S2. No rub. ABDOMEN: Benign. BS+. GENITALIA/RECTUM: Schmidt absent. BACK/EXTREMITIES: Edema 0+ Ulcer- NEUROLOGICAL: Alert and motor intact. SKIN: Rash- Bruise- LYMPHATICS: Edema- Ulcer- CARDIAC: S1, M.D. over. LABORATORY: Show hemoglobin 10.3, creatinine 3.7. ASSESSMENT AND RECOMMENDATIONS: 1. Chronic kidney disease stage 3, stable. 2. Hypertension, stable. 3. Anemia, stable. 4. Acute kidney injury, improving. No indication for dialysis.
[2018-06-13] MEDS ORDERED: Insulin Glargine 10 UNITS in Pre-Filled Syringe 1 EACH SC SCH (21:00)
[2018-06-13] MEDS ORDERED: hydrALAZINE 25 MG TAB PO SCH (21:00)
[2018-06-14 04:56] LABS: #Lymphocytes 1.1 thou/uL (1.20-3.40); #Monocytes 0.6 thou/uL (0.11-0.59); #Neutrophils 5.1 thou/uL (1.40-6.50); %Basophils 0.5 % (0.0-1.0); %Eosinophils 0.5 % (0.0-10.0); %Monocytes 8.1 % (0.0-10.0); %Neutrophils 74.9 % (42.0-75.0); Hemoglobin 8.8 g/dL (14.0-18.0); Mean Corpuscular HGB CONC 32.3 g/dL (32.0-36.0); Mean Corpuscular Hemoglobin 25.6 pg (27.0-31.0); Mean Corpuscular Volume 79.2 fL (78.0-98.0); Mean Platelet Volume 11.6 fL (7.4-10.4); Platelet Count 173 thou/uL (130-400); RBC Distribution Width 13.8 % (11.5-14.5); Red Blood Cell (RBC) Count 3.44 mill/uL (4.70-6.10); White Blood Cell (WBC) Count 6.8 thou/uL (4.8-10.8)
[2018-06-14 05:10] LABS: ALT (SGPT) 22 U/L (8-55); AST (SGOT) 18 U/L (5-34); Albumin 2.7 g/dL (3.5-5.0); Alkaline Phosphatase 91 U/L (40-150); Bilirubin, Direct 0.1 mg/dL (0.1-0.3); Bilirubin, Total 0.3 mg/dL (0.2-1.2); Protein, Total 5.6 g/dL (6.0-8.3)
[2018-06-14 05:11] LABS: Anion Gap 11 mmol/L (10-20); BUN (Urea Nitrogen) 28 mg/dL (8.9-20.6); Calc. Creatinine Clearance 46 mL/min (70-130); Calcium 8.5 mg/dL (7.8-10.44); Carbon Dioxide 23 mmol/L (22-29); Chloride 110 mmol/L (98-107); Estimated GFR-MDRD 23; Glucose 271 mg/dL (70-105); Potassium 3.6 mmol/L (3.5-5.1); Sodium 140 mmol/L (136-145)
[2018-06-14] MEDS: Insulin Regular 300 UNITS/3 ML VIAL SC PRN ×4 (06:34→20:32)
[2018-06-14] MEDS: Sodium Chloride 0.45% 1,000 ML IV SCH (06:36)
[2018-06-14] MEDS ORDERED: Insulin Glargine 40 UNITS in Pre-Filled Syringe 1 EACH SC SCH (09:00)
[2018-06-14] MEDS: cloNIDine 0.1 MG TAB PO SCH ×3 (09:02→20:31)
[2018-06-14] MEDS: hydrALAZINE 25 MG TAB PO SCH ×3 (09:03→20:31)
[2018-06-14] MEDS: Amlodipine 10 MG TAB PO SCH (09:03)
[2018-06-14] MEDS: Famotidine 20 MG TAB PO SCH (09:03)
[2018-06-14] MEDS: Gabapentin 100 MG CAP PO SCH ×2 (09:04→20:31)
[2018-06-14] MEDS: Heparin 5,000 UNITS/ML VIAL SC SCH ×3 (09:04→20:32)
[2018-06-14] MEDS ORDERED: Doxazosin Mesylate 4 MG TAB PO SCH ×2 (10:00→21:00)
--- NOTE | 2018-06-14 11:25 | PDOC.PN ---
- Subjective Encounter Start Date: 06/14/18 Encounter Start Time: 08:30 -: old records requested/rev Patient seen and examined. No new complaints. No overnight events - Objective Resuscitation Status: Resuscitation Status FULL:Full Resuscitation MAR Reviewed: Yes Vital Signs & Weight: Vital Signs (12 hours) Temp Pulse Resp BP BP BP Pulse Ox 06/14/18 11:00 179/83 H 06/14/18 09:20 94 L 06/14/18 09:03 90 182/93 H 06/14/18 09:02 182/93 H 06/14/18 07:56 98.1 F 90 16 182/93 H 93 L 06/14/18 04:57 97 F L 84 18 174/94 H 95 06/14/18 00:50 83 15 95 06/14/18 00:05 98.3 F 86 18 180/98 H 95 Weight Weight 275 lb 2.19 oz Most Recent Monitor Data Heart Rate from ECG 97 NIBP 158/81 NIBP BP-Mean 106 Respiration from ECG 24 SpO2 100 I&O: 06/13/18 06/14/18 06/15/18 06:59 06:59 06:59 Intake Total 3357 3710 Output Total 2690 2035 Balance 667 1675 Result Diagrams: 06/14/18 04:14 06/14/18 04:14 Additional Labs: Accuchecks 06/14/18 06/13/18 06/13/18 04:56 20:34 16:37 POC Glucose 273 H 308 H 367 H 06/13/18 11:47 POC Glucose 336 H Phys Exam - Physical Examination Constitutional: NAD HEENT: PERRLA, moist MMs, sclera anicteric Neck: no JVD, supple Respiratory: no wheezing, no rales, no rhonchi Cardiovascular: RRR, no significant murmur, no rub Gastrointestinal: soft, non-tender, no distention, positive bowel sounds Musculoskeletal: no edema, pulses present Neurological: non-focal, normal sensation, moves all 4 limbs Lymphatic: no nodes Psychiatric: normal affect, A&O x 3 Skin: no rash, normal turgor Dx/Plan (1) Acute worsening of stage 3 chronic kidney disease Code(s): N18.3 - CHRONIC KIDNEY DISEASE, STAGE 3 (MODERATE) Status: Acute (2) Hyperosmolar non-ketotic state in patient with type 2 diabetes mellitus Code(s): E11.01 - TYPE 2 DIABETES MELLITUS WITH HYPEROSMOLARITY WITH COMA Status: Acute (3) Dyslipidemia Code(s): E78.5 - HYPERLIPIDEMIA, UNSPECIFIED Status: Chronic (4) HTN (hypertension) Code(s): I10 - ESSENTIAL (PRIMARY) HYPERTENSION Status: Chronic Comment: (5) Sarcoidosis Code(s): D86.9 - SARCOIDOSIS, UNSPECIFIED Status: Chronic Comment: (6) Obesity (BMI 30-39.9) Code(s): E66.9 - OBESITY, UNSPECIFIED Status: Chronic (7) Anemia, normocytic normochromic Code(s): D64.9 - ANEMIA, UNSPECIFIED Status: Chronic - Plan cont current plan of care * medication reviewed as below * symptomatic treatment * today will increase dose of insulin. lantus 40 unit sc in AM, 20 unit sc in PM Review of Systems - Review of Systems ENT: negative: Ear Pain, Ear Discharge, Nose Pain, Nose Discharge, Nose Congestion, Mouth Pain, Mouth Swelling, Throat Pain, Throat Swelling, Other Respiratory: negative: Cough, Dry, Shortness of Breath, Hemoptysis, SOB with Excertion, Pleuritic Pain, Sputum, Wheezing Cardiovascular: negative: chest pain, palpitations, orthopnea, paroxysmal nocturnal dyspnea, edema, light headedness, other Gastrointestinal: negative: Nausea, Vomiting, Abdominal Pain, Diarrhea, Constipation, Melena, Hematochezia, Other Genitourinary: negative: Dysuria, Frequency, Incontinence, Hematuria, Retention , Other Musculoskeletal: negative: Neck Pain, Shoulder Pain, Arm Pain, Back Pain, Hand Pain, Leg Pain, Foot Pain, Other Skin: negative: Rash, Lesions, [place], Bruising, Other - Medications/Allergies Allergies/Adverse Reactions: Allergies Allergy/AdvReac Type Severity Reaction Status Date / Time No Known Allergies Allergy Verified 07/24/17 09:57 Medications: Current Medications Acetaminophen (Tylenol) 500 mg PO Q6H PRN PRN Reason: Mild Pain (1-3) Amlodipine Besylate (Norvasc) 10 mg PO DAILY [facility] Last Admin: 06/14/18 09:03 Dose: 10 mg Artificial Tears (Tears Naturale) 2 drop EA EYE PRN PRN PRN Reason: Dry Eyes Atorvastatin Calcium (Lipitor) 40 mg PO HS [facility] Bisacodyl (Dulcolax) 10 mg [place] DAILYPRN PRN PRN Reason: Constipation Clonidine (Catapres) 0.1 mg PO TID [facility] Last Admin: 06/14/18 09:02 Dose: 0.1 mg Dextrose/Water (Dextrose 50%) 25 gm IVP PRN PRN PRN Reason: HYPOGLYCEMIA PROTOCOL Diltiazem HCl (Cardizem Cd) 120 mg PO DAILY [facility] Last Admin: 06/14/18 09:03 Dose: 120 mg Doxazosin Mesylate (Cardura) 8 mg PO BID [facility] Doxazosin Mesylate (Cardura) 8 mg PO 1000 [facility] Stop: 06/14/18 12:00 Last Admin: 06/14/18 11:00 Dose: 8 mg Famotidine (Pepcid) 20 mg PO DAILY [facility] Last Admin: 06/14/18 09:03 Dose: 20 mg Gabapentin (Neurontin) 100 mg PO BID [facility] Last Admin: 06/14/18 09:04 Dose: 100 mg Glucagon (Glucagon) 1 mg IM PRN PRN PRN Reason: HYPOGLYCEMIA PROTOCOL Guaifenesin (Robitussin Sf) 200 mg PO Q4H PRN PRN Reason: Cough Heparin Sodium (Porcine) (Heparin) 5,000 units SC TID [facility] Last Admin: 06/14/18 09:04 Dose: 5,000 units Hydralazine HCl (Apresoline) 10 mg SLOW IVP Q4H PRN PRN Reason: SBP > 180 and HR < 70 Last Admin: 06/13/18 05:19 Dose: 10 mg Hydralazine HCl (Apresoline) 25 mg PO TID [facility] Last Admin: 06/14/18 09:03 Dose: 25 mg Dextrose/Water (D5w) 1,000 mls @ 0 mls/hr IV INF PRN PRN Reason: HYPOGLYCEMIA PROTOCOL Sodium Chloride (1/2 Normal Saline) 1,000 mls @ 100 mls/hr IV .Q10H [facility] Last Admin: 06/14/18 06:36 Dose: 1,000 mls Dextrose/Water (D5w) 1,000 mls @ 0 mls/hr IV .Q0M PRN PRN Reason: Hypoglycemia Insulin Glargine 20 units/ (Miscellaneous Medication) 0.2 mls @ 0 mls/hr SC [facility] Insulin Glargine 40 units/ (Miscellaneous Medication) 0.4 mls @ 0 mls/hr SC QAM [facility] Insulin Human Regular (Humulin R) 0 units SC .MODERATE SLIDING SC PRN; Protocol PRN Reason: MODERATE SLIDING SCALE Last Admin: 06/14/18 06:34 Dose: 6 units Loperamide HCl (Imodium) 2 mg PO PRN PRN PRN Reason: Diarrhea/Loose Stools Loratadine (Claritin) 10 mg PO DAILYPRN PRN PRN Reason: Sinus Symptoms Mineral Oil/White Petrolatum (Eucerin Cream) 0 gm TOP BIDPRN PRN PRN Reason: Dry Skin Ondansetron HCl (Zofran Odt) 4 mg PO Q6H PRN PRN Reason: Nausea/Vomiting Ondansetron HCl (Zofran) 4 mg IVP Q6H PRN PRN Reason: Nausea/Vomiting Senna/Docusate Sodium (Senokot S) 2 tab PO BID PRN PRN Reason: Constipation Sodium Chloride (Flush - Normal Saline) 10 ml IVF Q12HR [facility] Last Admin: 06/14/18 09:05 Dose: 10 ml Sodium Chloride (Flush - Normal Saline) 10 ml IVF PRN PRN PRN Reason: Saline Flush Sodium Chloride ([place] Nasal [place] 0.65%) 0 ml EA NARE QIDPRN PRN PRN Reason: Nasal Congestion Temazepam (Restoril) 15 mg PO HSPRN PRN PRN Reason: Insomnia
--- NOTE | 2018-06-14 11:59 | EKG ---
Test Reason : Blood Pressure : / mmHG Vent. Rate : 097 BPM Atrial Rate : 097 BPM P-R Int : 176 ms QRS Dur : 096 ms QT Int : 370 ms P-R-T Axes : 029 071 046 degrees QTc Int : 469 ms Normal sinus rhythm Normal ECG Confirmed by BONI SALGUERO ([id number]), news copy editor CARLI MEDEIROS ([id number]) on 06/14/2018 11:59:15 AM Referred By: Confirmed By:BONI SALGUERO
--- NOTE | 2018-06-14 14:20 | PRG ---
DATE OF SERVICE: 06/14/2018 SUBJECTIVE: A 47-year-old male being seen for acute kidney injury. The patient denies any nausea, v omiting or chest pain. PHYSICAL EXAMINATION: GENERAL: Patient is awake, alert. VITAL SIGNS: Afebrile, pulse 75, breathing 16, blood pressure was 179/86. HEAD/NECK: Normocephalic. Atraumatic. EYES: EOMI. No deformity. EARS: Clear. No ulcers. NOSE: Intact. No lesions. MOUTH: Clear. No discharge. THROAT: Clear. No exudate. LUNGS: Clear. No crackles. CARDIAC: S1, S2. No rub. ABDOMEN: Benign. BS+. GENITALIA/RECTUM: Schmidt absent. BACK/EXTREMITIES: Edema 0+ Ulcer- NEUROLOGICAL: Alert and motor intact. SKIN: Rash- Bruise- LYMPHATICS: Edema- Ulcer- LABORATORY DATA: Show creatinine 3.45. ASSESSMENT AND PLAN: 1. Chronic kidney disease stage 4, stable. Creatinine . 2. Hypertension. I would recommend adding hydralazine 10 mg t.i.d. and stopping amlodipine as amlod ipine and Cardizem are in the same class of medicine. The patient can also benefit from a low dose o f beta nyla.
[2018-06-14] MEDS: Doxazosin Mesylate 4 MG TAB PO SCH ×2 (14:24→20:32)
[2018-06-14] MEDS: Atorvastatin Calcium 40 MG TAB PO SCH (20:31)
[2018-06-14] MEDS: hydrALAZINE 20 MG/ML VIAL SLOW IVP PRN (20:37)
[2018-06-14] MEDS ORDERED: Insulin Glargine 20 UNITS in Pre-Filled Syringe 1 EACH SC SCH (21:00)
[2018-06-15] MEDS: Sodium Chloride 0.45% 1,000 ML IV SCH (01:39)
[2018-06-15] MEDS: Insulin Regular 300 UNITS/3 ML VIAL SC PRN ×4 (05:15→20:42)
[2018-06-15] MEDS ORDERED: Insulin Glargine 30 UNITS in Pre-Filled Syringe 1 EACH SC SCH (09:00)
[2018-06-15] MEDS: Famotidine 20 MG TAB PO SCH (09:10)
[2018-06-15] MEDS: Amlodipine 10 MG TAB PO SCH (09:11)
[2018-06-15] MEDS: Gabapentin 100 MG CAP PO SCH ×2 (09:11→20:40)
[2018-06-15] MEDS: hydrALAZINE 25 MG TAB PO SCH ×3 (09:11→20:40)
[2018-06-15] MEDS: cloNIDine 0.1 MG TAB PO SCH ×3 (09:11→20:40)
[2018-06-15] MEDS: Doxazosin Mesylate 4 MG TAB PO SCH ×2 (09:12→20:40)
[2018-06-15] MEDS: Heparin 5,000 UNITS/ML VIAL SC SCH ×3 (09:12→20:41)
[2018-06-15] MEDS ORDERED: Cyclobenzaprine 10 MG TAB PO PRN (10:19)
--- NOTE | 2018-06-15 10:56 | PDOC.PN ---
- Subjective Encounter Start Date: 06/15/18 Encounter Start Time: 08:40 has back pain, neuopathy pain, bedside Patient seen and examined. No overnight events - Objective Resuscitation Status: Resuscitation Status FULL:Full Resuscitation MAR Reviewed: Yes Vital Signs & Weight: Vital Signs (12 hours) Temp Pulse Resp BP BP BP Pulse Ox 06/15/18 09:11 82 190/84 H 06/15/18 07:33 98.0 F 82 16 190/84 H 93 L 06/15/18 04:14 98.4 F 88 18 178/96 H 94 L 06/15/18 00:18 97.6 F 76 18 130/76 94 L 06/14/18 23:34 93 18 95 Weight Weight 275 lb 2.19 oz Most Recent Monitor Data Heart Rate from ECG 97 NIBP 158/81 NIBP BP-Mean 106 Respiration from ECG 24 SpO2 100 I&O: 06/14/18 06/15/18 06/16/18 06:59 06:59 06:59 Intake Total 3710 1420 1000 Output Total 2035 2500 Balance 1675 -1080 1000 Result Diagrams: 06/14/18 04:14 06/14/18 04:14 Additional Labs: Accuchecks 06/15/18 06/14/18 06/14/18 04:20 20:30 16:18 POC Glucose 267 H 388 H 403 H 06/14/18 11:33 POC Glucose 414 H Phys Exam - Physical Examination Constitutional: NAD HEENT: PERRLA, moist MMs, sclera anicteric Neck: no JVD, supple Respiratory: no wheezing, no rales, no rhonchi Cardiovascular: RRR, no significant murmur, no rub Gastrointestinal: soft, non-tender, no distention, positive bowel sounds Musculoskeletal: no edema, pulses present Neurological: non-focal, normal sensation, moves all 4 limbs Psychiatric: normal affect, A&O x 3 Skin: no rash, normal turgor Dx/Plan (1) Acute worsening of stage 3 chronic kidney disease Code(s): N18.3 - CHRONIC KIDNEY DISEASE, STAGE 3 (MODERATE) Status: Acute (2) Hyperosmolar non-ketotic state in patient with type 2 diabetes mellitus Code(s): E11.01 - TYPE 2 DIABETES MELLITUS WITH HYPEROSMOLARITY WITH COMA Status: Acute (3) Dyslipidemia Code(s): E78.5 - HYPERLIPIDEMIA, UNSPECIFIED Status: Chronic (4) HTN (hypertension) Code(s): I10 - ESSENTIAL (PRIMARY) HYPERTENSION Status: Chronic Comment: (5) Sarcoidosis Code(s): D86.9 - SARCOIDOSIS, UNSPECIFIED Status: Chronic Comment: (6) Obesity (BMI 30-39.9) Code(s): E66.9 - OBESITY, UNSPECIFIED Status: Chronic (7) Anemia, normocytic normochromic Code(s): D64.9 - ANEMIA, UNSPECIFIED Status: Chronic - Plan cont current plan of care, plan discussed w/ family, PT/OT, social worker * will repeat labs tomorrow * today will dc ivf * increase lantus today * increase hydralazine today * as per , he will need placement on discharge * medication reviewed as below * symptomatic treatment * add flexeril for back pain * continue gabapentin. Review of Systems - Review of Systems ENT: negative: Ear Pain, Ear Discharge, Nose Pain, Nose Discharge, Nose Congestion, Mouth Pain, Mouth Swelling, Throat Pain, Throat Swelling, Other Respiratory: negative: Cough, Dry, Shortness of Breath, Hemoptysis, SOB with Excertion, Pleuritic Pain, Sputum, Wheezing Cardiovascular: negative: chest pain, palpitations, orthopnea, paroxysmal nocturnal dyspnea, edema, light headedness, other Gastrointestinal: negative: Nausea, Vomiting, Abdominal Pain, Diarrhea, Constipation, Melena, Hematochezia, Other Genitourinary: negative: Dysuria, Frequency, Incontinence, Hematuria, Retention , Other Musculoskeletal: Back Pain, Foot Pain. negative: Neck Pain, Shoulder Pain, Arm Pain, Hand Pain, Leg Pain, Other - Medications/Allergies Allergies/Adverse Reactions: Allergies Allergy/AdvReac Type Severity Reaction Status Date / Time No Known Allergies Allergy Verified 07/24/17 09:57 Medications: Current Medications Acetaminophen (Tylenol) 500 mg PO Q6H PRN PRN Reason: Mild Pain (1-3) Amlodipine Besylate (Norvasc) 10 mg PO DAILY [facility] Last Admin: 06/15/18 09:11 Dose: 10 mg Artificial Tears (Tears Naturale) 2 drop EA EYE PRN PRN PRN Reason: Dry Eyes Atorvastatin Calcium (Lipitor) 40 mg PO HS [facility] Last Admin: 06/14/18 20:31 Dose: 40 mg Bisacodyl (Dulcolax) 10 mg [place] DAILYPRN PRN PRN Reason: Constipation Clonidine (Catapres) 0.1 mg PO TID [facility] Last Admin: 06/15/18 09:11 Dose: 0.1 mg Cyclobenzaprine HCl (Flexeril) 5 mg PO TID PRN PRN Reason: Muscle Spasm Dextrose/Water (Dextrose 50%) 25 gm IVP PRN PRN PRN Reason: HYPOGLYCEMIA PROTOCOL Diltiazem HCl (Cardizem Cd) 120 mg PO DAILY [facility] Last Admin: 06/15/18 09:11 Dose: 120 mg Doxazosin Mesylate (Cardura) 8 mg PO BID [facility] Last Admin: 06/15/18 09:12 Dose: 8 mg Famotidine (Pepcid) 20 mg PO DAILY [facility] Last Admin: 06/15/18 09:10 Dose: 20 mg Gabapentin (Neurontin) 100 mg PO BID [facility] Last Admin: 06/15/18 09:11 Dose: 100 mg Glucagon (Glucagon) 1 mg IM PRN PRN PRN Reason: HYPOGLYCEMIA PROTOCOL Guaifenesin (Robitussin Sf) 200 mg PO Q4H PRN PRN Reason: Cough Heparin Sodium (Porcine) (Heparin) 5,000 units SC TID [facility] Last Admin: 06/15/18 09:12 Dose: 5,000 units Hydralazine HCl (Apresoline) 10 mg SLOW IVP Q4H PRN PRN Reason: SBP > 180 and HR < 70 Last Admin: 06/14/18 20:37 Dose: 10 mg Hydralazine HCl (Apresoline) 50 mg PO TID [facility] Last Admin: 06/15/18 09:11 Dose: 50 mg Dextrose/Water (D5w) 1,000 mls @ 0 mls/hr IV INF PRN PRN Reason: HYPOGLYCEMIA PROTOCOL Sodium Chloride (1/2 Normal Saline) 1,000 mls @ 50 mls/hr IV .Q20H [facility] Last Admin: 06/15/18 01:39 Dose: Not Given Dextrose/Water (D5w) 1,000 mls @ 0 mls/hr IV .Q0M PRN PRN Reason: Hypoglycemia Insulin Glargine 50 units/ (Miscellaneous Medication) 0.5 mls @ 0 mls/hr SC [facility] Insulin Glargine 30 units/ (Miscellaneous Medication) 0.3 mls @ 0 mls/hr SC QAM [facility] Last Admin: 06/15/18 09:12 Dose: 0.3 mls Insulin Human Regular (Humulin R) 0 units [place] .MODERATE SLIDING SC PRN; Protocol PRN Reason: MODERATE SLIDING SCALE Last Admin: 06/15/18 05:15 Dose: 6 units Loperamide HCl (Imodium) 2 mg PO PRN PRN PRN Reason: Diarrhea/Loose Stools Loratadine (Claritin) 10 mg PO DAILYPRN PRN PRN Reason: Sinus Symptoms Mineral Oil/White Petrolatum (Eucerin Cream) 0 gm TOP BIDPRN PRN PRN Reason: Dry Skin Ondansetron HCl (Zofran Odt) 4 mg PO Q6H PRN PRN Reason: Nausea/Vomiting Ondansetron HCl (Zofran) 4 mg IVP Q6H PRN PRN Reason: Nausea/Vomiting Senna/Docusate Sodium (Senokot S) 2 tab PO BID PRN PRN Reason: Constipation Sodium Chloride (Flush - Normal Saline) 10 ml IVF Q12HR [facility] Last Admin: 06/15/18 09:12 Dose: 10 ml Sodium Chloride (Flush - Normal Saline) 10 ml IVF PRN PRN PRN Reason: Saline Flush Sodium Chloride ([place] Nasal [place] 0.65%) 0 ml EA NARE QIDPRN PRN PRN Reason: Nasal Congestion Temazepam (Restoril) 15 mg PO HSPRN PRN PRN Reason: Insomnia
--- NOTE | 2018-06-15 12:47 | PRG ---
DATE OF SERVICE: 06/15/2018 SUBJECTIVE: A 47-year-old gentleman being seen for acute kidney injury. The patient denies any naus ea, vomiting, or chest pain. OBJECTIVE: GENERAL: Patient is awake, alert. VITAL SIGNS: Afebrile, pulse 80, breathing 16, blood pressure 184/92. GENERAL APPEARANCE AND MENTAL STATUS: Fair. HEAD/NECK: Normocephalic. Atraumatic. EYES: EOMI. No deformity. EARS: Clear. No ulcers. NOSE: Intact. No lesions. MOUTH: Clear. No discharge. THROAT: Clear. No exudate. LUNGS: Clear. No crackles. CARDIAC: S1, S2. No rub. ABDOMEN: Benign. BS+. GENITALIA/RECTUM: Schmidt absent. BACK/EXTREMITIES: Edema 0+ Ulcer- NEUROLOGICAL: Alert and motor intact. SKIN: Rash- Bruise- LYMPHATICS: Edema- Ulcer- LABORATORY DATA: Show creatinine is pending. ASSESSMENT AND RECOMMENDATIONS: 1. Acute kidney injury on chronic kidney disease because of hypertension, diabetes mellitus. We shante l order a 24-hour creatinine clearance. 2. Hypertension . 3. Anemia, stable. 4. Medication based on glomerular filtration rate are appropriate. No indication for dialysis at th is time.
[2018-06-15] MEDS: Atorvastatin Calcium 40 MG TAB PO SCH (20:41)
[2018-06-15] MEDS ORDERED: Insulin Glargine 50 UNITS in Pre-Filled Syringe 1 EACH SC SCH (21:00)
[2018-06-16 05:41] LABS: #Eosinphils 0.1 thou/uL (0.0-0.7); #Lymphocytes 1.1 thou/uL (1.20-3.40); #Monocytes 0.6 thou/uL (0.11-0.59); #Neutrophils 4.7 thou/uL (1.40-6.50); %Basophils 0.5 % (0.0-1.0); %Lymphocytes 17.6 % (21.0-51.0); %Monocytes 8.9 % (0.0-10.0); Hemoglobin 8.8 g/dL (14.0-18.0); Mean Corpuscular HGB CONC 30.3 g/dL (32.0-36.0); Mean Corpuscular Hemoglobin 24.1 pg (27.0-31.0); Mean Corpuscular Volume 79.5 fL (78.0-98.0); Mean Platelet Volume 11.1 fL (7.4-10.4); Platelet Count 208 thou/uL (130-400); Red Blood Cell (RBC) Count 3.64 mill/uL (4.70-6.10); White Blood Cell (WBC) Count 6.5 thou/uL (4.8-10.8)
[2018-06-16 05:55] LABS: Albumin 2.9 g/dL (3.5-5.0); Anion Gap 8 mmol/L (10-20); BUN (Urea Nitrogen) 27 mg/dL (8.9-20.6); BUN/Creatinine Ratio 7.65; Calc. Creatinine Clearance 45 mL/min (70-130); Calcium 8.9 mg/dL (7.8-10.44); Carbon Dioxide 26 mmol/L (22-29); Chloride 109 mmol/L (98-107); Estimated GFR-MDRD 22; Glucose 177 mg/dL (70-105); Phosphorus 3.8 mg/dL (2.3-4.7); Potassium 3.2 mmol/L (3.5-5.1); Sodium 140 mmol/L (136-145)
[2018-06-16] MEDS: Gabapentin 100 MG CAP PO SCH ×2 (07:49→20:43)
[2018-06-16] MEDS: Heparin 5,000 UNITS/ML VIAL SC SCH ×3 (07:49→20:44)
[2018-06-16] MEDS: Famotidine 20 MG TAB PO SCH (07:49)
[2018-06-16] MEDS: Amlodipine 10 MG TAB PO SCH (07:52)
[2018-06-16] MEDS: cloNIDine 0.1 MG TAB PO SCH ×3 (07:52→20:43)
[2018-06-16] MEDS: hydrALAZINE 25 MG TAB PO SCH ×3 (07:52→20:43)
[2018-06-16] MEDS: Insulin Glargine 45 UNITS in Pre-Filled Syringe 1 EACH SC SCH (09:24)
[2018-06-16] MEDS: Doxazosin Mesylate 4 MG TAB PO SCH ×2 (09:24→20:44)
--- NOTE | 2018-06-16 10:08 | PDOC.PN ---
- Subjective Encounter Start Date: 06/16/18 Encounter Start Time: 08:20 Patient seen and examined. No new complaints. No overnight events - Objective Resuscitation Status: Resuscitation Status FULL:Full Resuscitation MAR Reviewed: Yes Vital Signs & Weight: Vital Signs (12 hours) Temp Pulse Resp BP BP BP Pulse Ox 06/16/18 07:53 97 136/85 06/16/18 07:52 97 136/85 06/16/18 04:12 98.9 F 83 16 143/76 H 92 L 06/16/18 00:06 98.3 F 81 14 152/88 H 92 L Weight Weight 275 lb 2.19 oz Most Recent Monitor Data Heart Rate from ECG 97 NIBP 158/81 NIBP BP-Mean 106 Respiration from ECG 24 SpO2 100 I&O: 06/15/18 06/16/18 06/17/18 06:59 06:59 06:59 Intake Total 1420 1960 Output Total 2500 600 Balance -1080 1360 Result Diagrams: 06/16/18 05:00 06/16/18 05:00 Additional Labs: Accuchecks 06/16/18 06/15/18 06/15/18 04:54 20:04 16:08 POC Glucose 186 H 316 H 308 H 06/15/18 11:26 POC Glucose 307 H Phys Exam - Physical Examination Constitutional: NAD HEENT: PERRLA, moist MMs, sclera anicteric Neck: no JVD, supple Respiratory: no wheezing, no rales, no rhonchi Cardiovascular: RRR, no significant murmur, no rub Gastrointestinal: soft, non-tender, no distention, positive bowel sounds Musculoskeletal: no edema, pulses present Neurological: non-focal, normal sensation, moves all 4 limbs Lymphatic: no nodes Psychiatric: normal affect Skin: no rash, normal turgor Dx/Plan (1) Acute worsening of stage 3 chronic kidney disease Code(s): N18.3 - CHRONIC KIDNEY DISEASE, STAGE 3 (MODERATE) Status: Acute (2) Hyperosmolar non-ketotic state in patient with type 2 diabetes mellitus Code(s): E11.01 - TYPE 2 DIABETES MELLITUS WITH HYPEROSMOLARITY WITH COMA Status: Acute (3) Dyslipidemia Code(s): E78.5 - HYPERLIPIDEMIA, UNSPECIFIED Status: Chronic (4) HTN (hypertension) Code(s): I10 - ESSENTIAL (PRIMARY) HYPERTENSION Status: Chronic Comment: (5) Sarcoidosis Code(s): D86.9 - SARCOIDOSIS, UNSPECIFIED Status: Chronic Comment: (6) Obesity (BMI 30-39.9) Code(s): E66.9 - OBESITY, UNSPECIFIED Status: Chronic (7) Anemia, normocytic normochromic Code(s): D64.9 - ANEMIA, UNSPECIFIED Status: Chronic - Plan cont current plan of care, PT/OT, social media coordinator * 24 hour urinary collection ongoing as per nephro * today will increase lantus dose * as per pt and , he will need placement on discharge, case folder is working on it * medication reviewed as below * symptomatic treatment * renal function has been stabilized to CKD 4. Review of Systems - Review of Systems ENT: negative: Ear Pain, Ear Discharge, Nose Pain, Nose Discharge, Nose Congestion, Mouth Pain, Mouth Swelling, Throat Pain, Throat Swelling, Other Respiratory: negative: Cough, Dry, Shortness of Breath, Hemoptysis, SOB with Excertion, Pleuritic Pain, Sputum, Wheezing Cardiovascular: negative: chest pain, palpitations, orthopnea, paroxysmal nocturnal dyspnea, edema, light headedness, other Gastrointestinal: negative: Nausea, Vomiting, Abdominal Pain, Diarrhea, Constipation, Melena, Hematochezia, Other Genitourinary: negative: Dysuria, Frequency, Incontinence, Hematuria, Retention , Other Musculoskeletal: negative: Neck Pain, Shoulder Pain, Arm Pain, Back Pain, Hand Pain, Leg Pain, Foot Pain, Other Skin: negative: Rash, Lesions, Lyndon, Bruising, Other - Medications/Allergies Allergies/Adverse Reactions: Allergies Allergy/AdvReac Type Severity Reaction Status Date / Time No Known Allergies Allergy Verified 07/24/17 09:57 Medications: Current Medications Acetaminophen (Tylenol) 500 mg PO Q6H PRN PRN Reason: Mild Pain (1-3) Amlodipine Besylate (Norvasc) 10 mg PO DAILY [facility] Last Admin: 06/16/18 07:52 Dose: 10 mg Artificial Tears (Tears Naturale) 2 drop EA EYE PRN PRN PRN Reason: Dry Eyes Atorvastatin Calcium (Lipitor) 40 mg PO HS [facility] Last Admin: 06/15/18 20:41 Dose: 40 mg Bisacodyl (Dulcolax) 10 mg [place] DAILYPRN PRN PRN Reason: Constipation Clonidine (Catapres) 0.1 mg PO TID [facility] Last Admin: 06/16/18 07:52 Dose: 0.1 mg Cyclobenzaprine HCl (Flexeril) 5 mg PO TID PRN PRN Reason: Muscle Spasm Last Admin: 06/15/18 12:15 Dose: 5 mg Dextrose/Water (Dextrose 50%) 25 gm IVP PRN PRN PRN Reason: HYPOGLYCEMIA PROTOCOL Diltiazem HCl (Cardizem Cd) 120 mg PO DAILY [facility] Last Admin: 06/16/18 07:53 Dose: 120 mg Doxazosin Mesylate (Cardura) 8 mg PO BID [facility] Last Admin: 06/16/18 09:24 Dose: 8 mg Famotidine (Pepcid) 20 mg PO DAILY [facility] Last Admin: 06/16/18 07:49 Dose: 20 mg Gabapentin (Neurontin) 100 mg PO BID [facility] Last Admin: 06/16/18 07:49 Dose: 100 mg Glucagon (Glucagon) 1 mg IM PRN PRN PRN Reason: HYPOGLYCEMIA PROTOCOL Guaifenesin (Robitussin Sf) 200 mg PO Q4H PRN PRN Reason: Cough Heparin Sodium (Porcine) (Heparin) 5,000 units [place] TID [facility] Last Admin: 06/16/18 07:49 Dose: 5,000 units Hydralazine HCl (Apresoline) 10 mg SLOW IVP Q4H PRN PRN Reason: SBP > 180 and HR < 70 Last Admin: 06/14/18 20:37 Dose: 10 mg Hydralazine HCl (Apresoline) 50 mg PO TID [facility] Last Admin: 06/16/18 07:52 Dose: 50 mg Dextrose/Water (D5w) 1,000 mls @ 0 mls/hr IV INF PRN PRN Reason: HYPOGLYCEMIA PROTOCOL Dextrose/Water (D5w) 1,000 mls @ 0 mls/hr IV .Q0M PRN PRN Reason: Hypoglycemia Insulin Glargine 60 units/ (Miscellaneous Medication) 0.6 mls @ 0 mls/hr SC HS [facility] Insulin Glargine 45 units/ (Miscellaneous Medication) 0.45 mls @ 0 mls/hr SC QAM [facility] Last Admin: 06/16/18 09:24 Dose: 0.45 mls Insulin Human Regular (Humulin R) 0 units [place] .MODERATE SLIDING SC PRN; Protocol PRN Reason: MODERATE SLIDING SCALE Last Admin: 06/15/18 20:42 Dose: 4 units Loperamide HCl (Imodium) 2 mg PO PRN PRN PRN Reason: Diarrhea/Loose Stools Loratadine (Claritin) 10 mg PO DAILYPRN PRN PRN Reason: Sinus Symptoms Mineral Oil/White Petrolatum (Eucerin Cream) 0 gm TOP BIDPRN PRN PRN Reason: Dry Skin Ondansetron HCl (Zofran Odt) 4 mg PO Q6H PRN PRN Reason: Nausea/Vomiting Ondansetron HCl (Zofran) 4 mg IVP Q6H PRN PRN Reason: Nausea/Vomiting Senna/Docusate Sodium (Senokot S) 2 tab PO BID PRN PRN Reason: Constipation Sodium Chloride (Flush - Normal Saline) 10 ml IVF Q12HR [facility] Last Admin: 06/16/18 07:53 Dose: 10 ml Sodium Chloride (Flush - Normal Saline) 10 ml IVF PRN PRN PRN Reason: Saline Flush Sodium Chloride ([place] Nasal [place] 0.65%) 0 ml EA NARE QIDPRN PRN PRN Reason: Nasal Congestion Temazepam (Restoril) 15 mg PO HSPRN PRN PRN Reason: Insomnia
[2018-06-16] MEDS: Insulin Regular 300 UNITS/3 ML VIAL SC PRN ×2 (11:38→16:49)
[2018-06-16] MEDS ORDERED: hydrALAZINE 10 MG TAB PO PRN (13:53)
--- NOTE | 2018-06-16 15:54 | PRG ---
DATE OF SERVICE: 06/16/2018 SUBJECTIVE: Patient was seen and examined at bedside and overnight events noted. Patient denies any shortness of breath or chest pain or palpitation. No history of nausea or vomitin g or diarrhea or fever or chills or cramps. OBJECTIVE: GENERAL: This is an obese male in no apparent distress. VITAL SIGNS: Temperature 98.2, pulse 80, respiratory rate 20, blood pressure 157/80. HEENT: Atraumatic, normocephalic. Oral mucosa is moist. NECK: Supple. CARDIOVASCULAR: S1 and S2 heard. Rate and rhythm regular. RESPIRATORY: Clear to auscultation. GASTROINTESTINAL: Abdomen is soft. MUSCULOSKELETAL: No tenderness. No edema. DERMATOLOGIC: No skin rash. NEUROLOGIC: Alert and awake and oriented x3. No focal neurologic deficits. Moving all the extremit ies. PSYCHIATRIC: Mood and affect normal. LABORATORY DATA: Potassium is 3.2, BUN is 27, creatinine is . ASSESSMENT AND PLAN: 1. Acute kidney injury on chronic kidney disease, stage 4, stable. 2. Hypertension. 3. Anemia. 4. Edema, controlled. 5. Diabetic nephropathy. We will continue to monitor. The creatinine is stable at his baseline.
[2018-06-16 16:29] LABS: Creatinine, Urine 105.34 mg/dL (63-166)
[2018-06-16] MEDS: Atorvastatin Calcium 40 MG TAB PO SCH (20:43)
[2018-06-16] MEDS ORDERED: Insulin Glargine 60 UNITS in Pre-Filled Syringe 1 EACH SC SCH (21:00)
[2018-06-17 07:40] LABS: #Eosinphils 0.1 thou/uL (0.0-0.7); #Lymphocytes 1.5 thou/uL (1.20-3.40); #Monocytes 0.7 thou/uL (0.11-0.59); #Neutrophils 4.9 thou/uL (1.40-6.50); %Basophils 0.7 % (0.0-1.0); %Eosinophils 0.8 % (0.0-10.0); %Lymphocytes 20.2 % (21.0-51.0); %Monocytes 9.5 % (0.0-10.0); %Neutrophils 68.9 % (42.0-75.0); Hemoglobin 9.7 g/dL (14.0-18.0); Mean Corpuscular HGB CONC 31.7 g/dL (32.0-36.0); Mean Corpuscular Hemoglobin 25.2 pg (27.0-31.0); Mean Corpuscular Volume 79.6 fL (78.0-98.0); Mean Platelet Volume 10.8 fL (7.4-10.4); Platelet Count 224 thou/uL (130-400); RBC Distribution Width 14.1 % (11.5-14.5); Red Blood Cell (RBC) Count 3.83 mill/uL (4.70-6.10); White Blood Cell (WBC) Count 7.2 thou/uL (4.8-10.8)
[2018-06-17 07:53] VITALS: TEMP 97.9
[2018-06-17 08:01] LABS: ALT (SGPT) 49 U/L (8-55); AST (SGOT) 39 U/L (5-34); Albumin 3.2 g/dL (3.5-5.0); Alkaline Phosphatase 107 U/L (40-150); Anion Gap 12 mmol/L (10-20); BUN (Urea Nitrogen) 29 mg/dL (8.9-20.6); Bilirubin, Total 0.2 mg/dL (0.2-1.2); Calc. Creatinine Clearance 42 mL/min (70-130); Calcium 9.2 mg/dL (7.8-10.44); Carbon Dioxide 24 mmol/L (22-29); Chloride 109 mmol/L (98-107); Estimated GFR-MDRD 21; Globulin 3.2 g/dL (2.4-3.5); Glucose 84 mg/dL (70-105); Potassium 3.3 mmol/L (3.5-5.1); Protein, Total 6.4 g/dL (6.0-8.3); Sodium 142 mmol/L (136-145)
--- NOTE | 2018-06-17 08:13 | PDOC.PN ---
- Subjective Encounter Start Date: 06/17/18 Encounter Start Time: 07:25 Patient seen and examined. No new complaints. No overnight events - Objective Resuscitation Status: Resuscitation Status FULL:Full Resuscitation MAR Reviewed: Yes Vital Signs & Weight: Vital Signs (12 hours) Temp Pulse Resp BP BP Pulse Ox 06/17/18 07:52 97.9 F 93 20 173/91 H 90 L 06/16/18 20:43 88 150/87 H Weight Weight 275 lb 2.19 oz Most Recent Monitor Data Heart Rate from ECG 97 NIBP 158/81 NIBP BP-Mean 106 Respiration from ECG 24 SpO2 100 I&O: 06/16/18 06/17/18 06/18/18 06:59 06:59 06:59 Intake Total 1960 960 Output Total 600 900 Balance 1360 60 Result Diagrams: 06/17/18 07:25 06/17/18 07:25 Additional Labs: Accuchecks 06/17/18 06/16/18 06/16/18 05:02 20:04 16:28 POC Glucose 120 H 379 H 368 H 06/16/18 11:25 POC Glucose 278 H Phys Exam - Physical Examination Constitutional: NAD HEENT: PERRLA, moist MMs, sclera anicteric Neck: no JVD, supple Respiratory: no wheezing, no rales, no rhonchi Cardiovascular: RRR, no significant murmur, no rub Gastrointestinal: soft, non-tender, no distention, positive bowel sounds Musculoskeletal: no edema, pulses present Neurological: non-focal, normal sensation Lymphatic: no nodes Psychiatric: normal affect, A&O x 3 Skin: no rash, normal turgor Dx/Plan (1) Acute worsening of stage 3 chronic kidney disease Code(s): N18.3 - CHRONIC KIDNEY DISEASE, STAGE 3 (MODERATE) Status: Acute (2) Hyperosmolar non-ketotic state in patient with type 2 diabetes mellitus Code(s): E11.01 - TYPE 2 DIABETES MELLITUS WITH HYPEROSMOLARITY WITH COMA Status: Acute (3) Dyslipidemia Code(s): E78.5 - HYPERLIPIDEMIA, UNSPECIFIED Status: Chronic (4) HTN (hypertension) Code(s): I10 - ESSENTIAL (PRIMARY) HYPERTENSION Status: Chronic Comment: (5) Sarcoidosis Code(s): D86.9 - SARCOIDOSIS, UNSPECIFIED Status: Chronic Comment: (6) Obesity (BMI 30-39.9) Code(s): E66.9 - OBESITY, UNSPECIFIED Status: Chronic (7) Anemia, normocytic normochromic Code(s): D64.9 - ANEMIA, UNSPECIFIED Status: Chronic - Plan cont current plan of care, psychologist social * medication reviewed as below * symptomatic treatment * increase lantus 70 unit bedtime * await placement * check urine protein and creatinine ratio * check serum protein electrophoresis. Review of Systems - Review of Systems ENT: negative: Ear Pain, Ear Discharge, Nose Pain, Nose Discharge, Nose Congestion, Mouth Pain, Mouth Swelling, Throat Pain, Throat Swelling, Other Respiratory: negative: Cough, Dry, Shortness of Breath, Hemoptysis, SOB with Excertion, Pleuritic Pain, Sputum, Wheezing Cardiovascular: negative: chest pain, palpitations, orthopnea, paroxysmal nocturnal dyspnea, edema, light headedness, other Gastrointestinal: negative: Nausea, Vomiting, Abdominal Pain, Diarrhea, Constipation, Melena, Hematochezia, Other Genitourinary: negative: Dysuria, Frequency, Incontinence, Hematuria, Retention , Other Musculoskeletal: negative: Neck Pain, Shoulder Pain, Arm Pain, Back Pain, Hand Pain, Leg Pain, Foot Pain, Other Skin: negative: Rash, Lesions, Lyndon, Bruising, Other - Medications/Allergies Allergies/Adverse Reactions: Allergies Allergy/AdvReac Type Severity Reaction Status Date / Time No Known Allergies Allergy Verified 07/24/17 09:57 Medications: Current Medications Acetaminophen (Tylenol) 500 mg PO Q6H PRN PRN Reason: Mild Pain (1-3) Amlodipine Besylate (Norvasc) 10 mg PO DAILY [facility] Last Admin: 06/16/18 07:52 Dose: 10 mg Artificial Tears (Tears Naturale) 2 drop EA EYE PRN PRN PRN Reason: Dry Eyes Atorvastatin Calcium (Lipitor) 40 mg PO HS [facility] Last Admin: 06/16/18 20:43 Dose: 40 mg Bisacodyl (Dulcolax) 10 mg [place] DAILYPRN PRN PRN Reason: Constipation Clonidine (Catapres) 0.1 mg PO TID [facility] Last Admin: 06/16/18 20:43 Dose: 0.1 mg Cyclobenzaprine HCl (Flexeril) 5 mg PO TID PRN PRN Reason: Muscle Spasm Last Admin: 06/15/18 12:15 Dose: 5 mg Dextrose/Water (Dextrose 50%) 25 gm IVP PRN PRN PRN Reason: HYPOGLYCEMIA PROTOCOL Diltiazem HCl (Cardizem Cd) 120 mg PO DAILY [facility] Last Admin: 06/16/18 07:53 Dose: 120 mg Doxazosin Mesylate (Cardura) 8 mg PO BID [facility] Last Admin: 06/16/18 20:44 Dose: 8 mg Famotidine (Pepcid) 20 mg PO DAILY [facility] Last Admin: 06/16/18 07:49 Dose: 20 mg Gabapentin (Neurontin) 100 mg PO BID [facility] Last Admin: 06/16/18 20:43 Dose: 100 mg Glucagon (Glucagon) 1 mg IM PRN PRN PRN Reason: HYPOGLYCEMIA PROTOCOL Guaifenesin (Robitussin Sf) 200 mg PO Q4H PRN PRN Reason: Cough Heparin Sodium (Porcine) (Heparin) 5,000 units [place] TID [facility] Last Admin: 06/16/18 20:44 Dose: 5,000 units Hydralazine HCl (Apresoline) 50 mg PO TID [facility] Last Admin: 06/16/18 20:43 Dose: 50 mg Hydralazine HCl (Apresoline) 10 mg PO Q4H PRN PRN Reason: SBP > 180 AND HR >70 Dextrose/Water (D5w) 1,000 mls @ 0 mls/hr IV INF PRN PRN Reason: HYPOGLYCEMIA PROTOCOL Dextrose/Water (D5w) 1,000 mls @ 0 mls/hr IV .Q0M PRN PRN Reason: Hypoglycemia Insulin Glargine 45 units/ (Miscellaneous Medication) 0.45 mls @ 0 mls/hr [facility] Last Admin: 06/16/18 09:24 Dose: 0.45 mls Insulin Glargine 70 units/ (Miscellaneous Medication) 0.7 mls @ 0 mls/hr SC [facility] Insulin Human Regular (Humulin R) 0 units [place] .MODERATE SLIDING SC PRN; Protocol PRN Reason: MODERATE SLIDING SCALE Last Admin: 06/16/18 16:49 Dose: 8 units Loperamide HCl (Imodium) 2 mg PO PRN PRN PRN Reason: Diarrhea/Loose Stools Loratadine (Claritin) 10 mg PO DAILYPRN PRN PRN Reason: Sinus Symptoms Mineral Oil/White Petrolatum (Eucerin Cream) 0 gm TOP BIDPRN PRN PRN Reason: Dry Skin Ondansetron HCl (Zofran Odt) 4 mg PO Q6H PRN PRN Reason: Nausea/Vomiting Ondansetron HCl (Zofran) 4 mg IVP Q6H PRN PRN Reason: Nausea/Vomiting Senna/Docusate Sodium (Senokot S) 2 tab PO BID PRN PRN Reason: Constipation Sodium Chloride (Flush - Normal Saline) 10 ml IVF Q12HR [facility] Last Admin: 06/16/18 20:45 Dose: 10 ml Sodium Chloride (Flush - Normal Saline) 10 ml IVF PRN PRN PRN Reason: Saline Flush Sodium Chloride ([place] Nasal [place] 0.65%) 0 ml EA NARE QIDPRN PRN PRN Reason: Nasal Congestion Temazepam (Restoril) 15 mg PO HSPRN PRN PRN Reason: Insomnia
[2018-06-17] MEDS: Famotidine 20 MG TAB PO SCH (08:45)
[2018-06-17] MEDS: Gabapentin 100 MG CAP PO SCH ×2 (08:46→19:49)
[2018-06-17] MEDS: cloNIDine 0.1 MG TAB PO SCH ×3 (08:46→19:47)
[2018-06-17] MEDS: hydrALAZINE 25 MG TAB PO SCH ×3 (08:46→19:47)
[2018-06-17] MEDS: Amlodipine 10 MG TAB PO SCH (08:46)
[2018-06-17] MEDS: Heparin 5,000 UNITS/ML VIAL SC SCH ×3 (08:47→19:47)
--- NOTE | 2018-06-17 08:48 | PRG ---
DATE OF SERVICE: 06/17/2018 Jean-Pierre Jacobs was examined today and followup of his presence in the ICU. PHYSICAL EXAMINATION: VITAL SIGNS: His blood pressure 158/87, heart rate 88, respiratory rate is 20, oximetry is 90 on coretta m air. LUNGS: Lungs are clear. HEART: Regular rhythm. ABDOMEN: Soft. LABORATORY DATA: White count 7.2, hemoglobin 9.7, platelets 224. MCV is 79. Sodium 140, potassium 3.2, chloride 109, bicarbonate 26, BUN 27, creatinine 3.53. IMPRESSION: 1. Hyperosmolar state. 2. Obesity. 3. Sleep apnea. 4. Chronic renal insufficiency. 5. 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 PLAN: Continue with weight loss. He is considering getting an insulin pump as an outpatient. I will be happy to see him for his sleep apnea in the future.
[2018-06-17 09:15] LABS: HBCM Index 0.07 S/CO (0-0.79); HBSAg Index 0.21 S/CO (0-0.99); Hep A IgM AB Non-Reactive (NonReactive); Hep A IgM S/CO 0.11 S/CO (0-0.79); Hep B Surf Ag Non-Reactive S/CO (NonReactive); Hep C IgG Ab Non-Reactive (NonReactive); Hep C Index 0.06 S/CO (0-0.79); Hepatitis B Core IgM Abs Non-Reactive (NonReactive)
[2018-06-17] MEDS: Insulin Glargine 45 UNITS in Pre-Filled Syringe 1 EACH SC SCH (09:44)
[2018-06-17] MEDS: Doxazosin Mesylate 4 MG TAB PO SCH ×2 (09:44→19:46)
[2018-06-17] MEDS: Insulin Regular 300 UNITS/3 ML VIAL SC PRN ×3 (12:39→19:48)
[2018-06-17 13:11] LABS: Creatinine, Urine 154.99 mg/dL (63-166)
--- NOTE | 2018-06-17 17:45 | PRG ---
DATE OF SERVICE: 06/17/2018 SUBJECTIVE: Patient was seen and examined at bedside and overnight events noted. Patient denies any shortness of breath or chest pain or palpitation. No history of nausea or vomiting or diarrhea or f ever or chills or cramps. OBJECTIVE: GENERAL: This is a well-built male in no apparent distress. VITAL SIGNS: Temperature 97.9, pulse 93, respiratory rate 18, blood pressure 173/91. HEENT: Atraumatic, normocephalic. Oral mucosa is moist. NECK: Supple. CARDIOVASCULAR: S1, S2 heard. Rate and rhythm regular. RESPIRATORY: Clear to auscultation. GASTROINTESTINAL: Abdomen is soft. MUSCULOSKELETAL: No tenderness. No edema. DERMATOLOGIC: No skin rash. NEUROLOGIC: Alert and awake and oriented x3. No focal neurologic deficits. Moving all the extremiti es. PSYCHIATRIC: Mood and affect normal. LABORATORY DATA: Potassium is 3.3, BUN 39, creatinine 3.7. ASSESSMENT AND PLAN: 1. Acute kidney injury on chronic kidney stage 4, stable. Creatinine is stable at chronic kidney di sease stage 4. 2. Hypertension, stable. 3. Anemia. 4. Edema. 5. Diabetic nephropathy. 6. Obesity. I will continue to follow.
[2018-06-17] MEDS: Atorvastatin Calcium 40 MG TAB PO SCH (19:47)
[2018-06-17] MEDS ORDERED: Insulin Glargine 70 UNITS in Pre-Filled Syringe 1 EACH SC SCH (21:00)
[2018-06-18] MEDS: Insulin Regular 300 UNITS/3 ML VIAL SC PRN ×2 (05:07→12:15)
[2018-06-18] MEDS: cloNIDine 0.1 MG TAB PO SCH ×2 (08:52→14:40)
[2018-06-18] MEDS: Doxazosin Mesylate 4 MG TAB PO SCH (08:53)
[2018-06-18] MEDS: hydrALAZINE 25 MG TAB PO SCH ×2 (08:53→14:40)
[2018-06-18] MEDS: Famotidine 20 MG TAB PO SCH (08:53)
[2018-06-18] MEDS: Amlodipine 10 MG TAB PO SCH (08:54)
[2018-06-18] MEDS: Gabapentin 100 MG CAP PO SCH (08:54)
[2018-06-18] MEDS: Heparin 5,000 UNITS/ML VIAL SC SCH ×2 (08:55→14:40)
[2018-06-18] MEDS: Insulin Glargine 45 UNITS in Pre-Filled Syringe 1 EACH SC SCH (08:55)
--- NOTE | 2018-06-18 09:26 | PDOC.PN ---
- Subjective Encounter Start Date: 06/18/18 Encounter Start Time: 07:10 -: old records requested/rev Patient seen and examined. No new complaints. No overnight events - Objective Resuscitation Status: Resuscitation Status FULL:Full Resuscitation MAR Reviewed: Yes Vital Signs & Weight: Vital Signs (12 hours) Temp Pulse Resp BP Pulse Ox 06/18/18 08:54 97 06/18/18 08:53 97 06/18/18 07:42 97.9 F 97 18 161/83 H 92 L Weight Weight 275 lb 2.19 oz Most Recent Monitor Data Heart Rate from ECG 97 NIBP 158/81 NIBP BP-Mean 106 Respiration from ECG 24 SpO2 100 I&O: 06/17/18 06/18/18 06/19/18 06:59 06:59 06:59 Intake Total 960 Output Total 900 Balance 60 Result Diagrams: 06/17/18 07:25 06/17/18 07:25 Additional Labs: Accuchecks 06/18/18 06/17/18 06/17/18 05:04 19:43 16:27 POC Glucose 251 H 373 H 220 H 06/17/18 11:26 POC Glucose 219 H Phys Exam - Physical Examination Constitutional: NAD HEENT: PERRLA, moist MMs, sclera anicteric Neck: no JVD, supple Respiratory: no wheezing, no rales, no rhonchi Cardiovascular: RRR, no significant murmur, no rub Gastrointestinal: soft, non-tender, no distention, positive bowel sounds Musculoskeletal: no edema, pulses present Neurological: non-focal, normal sensation, moves all 4 limbs Psychiatric: normal affect, A&O x 3 Skin: no rash, normal turgor Dx/Plan (1) Acute worsening of stage 3 chronic kidney disease Code(s): N18.3 - CHRONIC KIDNEY DISEASE, STAGE 3 (MODERATE) Status: Acute (2) Hyperosmolar non-ketotic state in patient with type 2 diabetes mellitus Code(s): E11.01 - TYPE 2 DIABETES MELLITUS WITH HYPEROSMOLARITY WITH COMA Status: Acute (3) Dyslipidemia Code(s): E78.5 - HYPERLIPIDEMIA, UNSPECIFIED Status: Chronic (4) HTN (hypertension) Code(s): I10 - ESSENTIAL (PRIMARY) HYPERTENSION Status: Chronic Comment: (5) Sarcoidosis Code(s): D86.9 - SARCOIDOSIS, UNSPECIFIED Status: Chronic Comment: (6) Obesity (BMI 30-39.9) Code(s): E66.9 - OBESITY, UNSPECIFIED Status: Chronic (7) Anemia, normocytic normochromic Code(s): D64.9 - ANEMIA, UNSPECIFIED Status: Chronic - Plan cont current plan of care, PT/OT, social insurance analyst * medication reviewed as below * symptomatic treatment * stable for discharge * see my discharge summery later * medication reconciled and prescription sent to pharmacy. Review of Systems - Review of Systems ENT: negative: Ear Pain, Ear Discharge, Nose Pain, Nose Discharge, Nose Congestion, Mouth Pain, Mouth Swelling, Throat Pain, Throat Swelling, Other Respiratory: negative: Cough, Dry, Shortness of Breath, Hemoptysis, SOB with Excertion, Pleuritic Pain, Sputum, Wheezing Cardiovascular: negative: chest pain, palpitations, orthopnea, paroxysmal nocturnal dyspnea, edema, light headedness, other Gastrointestinal: negative: Nausea, Vomiting, Abdominal Pain, Diarrhea, Constipation, Melena, Hematochezia, Other Genitourinary: negative: Dysuria, Frequency, Incontinence, Hematuria, Retention , Other Musculoskeletal: negative: Neck Pain, Shoulder Pain, Arm Pain, Back Pain, Hand Pain, Leg Pain, Foot Pain, Other Skin: negative: Rash, Lesions, Lyndon, Bruising, Other - Medications/Allergies Allergies/Adverse Reactions: Allergies Allergy/AdvReac Type Severity Reaction Status Date / Time No Known Allergies Allergy Verified 07/24/17 09:57 Medications: Current Medications Acetaminophen (Tylenol) 500 mg PO Q6H PRN PRN Reason: Mild Pain (1-3) Amlodipine Besylate (Norvasc) 10 mg PO DAILY [facility] Last Admin: 06/18/18 08:54 Dose: 10 mg Artificial Tears (Tears Naturale) 2 drop EA EYE PRN PRN PRN Reason: Dry Eyes Atorvastatin Calcium (Lipitor) 40 mg PO HS [facility] Last Admin: 06/17/18 19:47 Dose: 40 mg Bisacodyl (Dulcolax) 10 mg [place] DAILYPRN PRN PRN Reason: Constipation Clonidine (Catapres) 0.1 mg PO TID [facility] Last Admin: 06/18/18 08:52 Dose: 0.1 mg Cyclobenzaprine HCl (Flexeril) 5 mg PO TID PRN PRN Reason: Muscle Spasm Last Admin: 06/15/18 12:15 Dose: 5 mg Dextrose/Water (Dextrose 50%) 25 gm IVP PRN PRN PRN Reason: HYPOGLYCEMIA PROTOCOL Diltiazem HCl (Cardizem Cd) 120 mg PO DAILY [facility] Last Admin: 06/18/18 08:54 Dose: 120 mg Doxazosin Mesylate (Cardura) 8 mg PO BID [facility] Last Admin: 06/18/18 08:53 Dose: 8 mg Famotidine (Pepcid) 20 mg PO DAILY [facility] Last Admin: 06/18/18 08:53 Dose: 20 mg Gabapentin (Neurontin) 100 mg PO BID [facility] Last Admin: 06/18/18 08:54 Dose: 100 mg Glucagon (Glucagon) 1 mg IM PRN PRN PRN Reason: HYPOGLYCEMIA PROTOCOL Guaifenesin (Robitussin Sf) 200 mg PO Q4H PRN PRN Reason: Cough Heparin Sodium (Porcine) (Heparin) 5,000 units SC TID [facility] Last Admin: 06/18/18 08:55 Dose: 5,000 units Hydralazine HCl (Apresoline) 50 mg PO TID [facility] Last Admin: 06/18/18 08:53 Dose: 50 mg Hydralazine HCl (Apresoline) 10 mg PO Q4H PRN PRN Reason: SBP > 180 AND HR >70 Dextrose/Water (D5w) 1,000 mls @ 0 mls/hr IV .Q0M PRN PRN Reason: Hypoglycemia Insulin Glargine 45 units/ (Miscellaneous Medication) 0.45 mls @ 0 mls/hr SC QAM [facility] Last Admin: 06/18/18 08:55 Dose: 0.45 mls Insulin Glargine 70 units/ (Miscellaneous Medication) 0.7 mls @ 0 mls/hr SC HS [facility] Last Admin: 06/17/18 19:47 Dose: 0.7 mls Insulin Human Regular (Humulin R) 0 units SC .MODERATE SLIDING SC PRN; Protocol PRN Reason: MODERATE SLIDING SCALE Last Admin: 06/18/18 05:07 Dose: 6 units Loperamide HCl (Imodium) 2 mg PO PRN PRN PRN Reason: Diarrhea/Loose Stools Loratadine (Claritin) 10 mg PO DAILYPRN PRN PRN Reason: Sinus Symptoms Mineral Oil/White Petrolatum (Eucerin Cream) 0 gm TOP BIDPRN PRN PRN Reason: Dry Skin Ondansetron HCl (Zofran Odt) 4 mg PO Q6H PRN PRN Reason: Nausea/Vomiting Ondansetron HCl (Zofran) 4 mg IVP Q6H PRN PRN Reason: Nausea/Vomiting Senna/Docusate Sodium (Senokot S) 2 tab PO BID PRN PRN Reason: Constipation Sodium Chloride (Flush - Normal Saline) 10 ml IVF Q12HR [facility] Last Admin: 06/18/18 08:55 Dose: Not Given Sodium Chloride (Flush - Normal Saline) 10 ml IVF PRN PRN PRN Reason: Saline Flush Sodium Chloride ([place] Nasal [place] 0.65%) 0 ml EA NARE QIDPRN PRN PRN Reason: Nasal Congestion Temazepam (Restoril) 15 mg PO HSPRN PRN PRN Reason: Insomnia
--- NOTE | 2018-06-18 10:58 | DIS ---
DATE OF ADMISSION: 06/10/2018 DATE OF DISCHARGE: 06/18/2018 PRIMARY CARE PHYSICIAN: Dr. Margi Ferraro. DISCHARGE DISPOSITION: jail home at [facility]. PRIMARY DISCHARGE DIAGNOSES: Acute on chronic kidney failure, baseline chronic kidney disease stage 3, hyperosmolar hyperglycemic nonketotic state. SECONDARY DISCHARGE DIAGNOSES: Morbid obesity with body mass index 37, obstructive sleep apnea, norm ocytic normochromic anemia, chronic kidney disease stage 3, dyslipidemia, hypertension, obesity with BMI of 37, sarcoidosis. PRIMARY PROCEDURE AND OPERATION: None. RADIOLOGICAL INVESTIGATION: CT brain on admission showed no acute intracranial process, increased de nsity in the right lobe is related with the surgery. Chest x-ray was negative for any acute cardiopu lmonary process. Renal ultrasound showed no hydronephrosis. SIGNIFICANT LABORATORY DATA: WBC 7.2, hemoglobin 9.7, platelet 224, pH 7.30, CO2 40.9, O2 75.3, bica rbonate 15.4. Sodium 142, potassium 3.3, BUN 29, creatinine 3.78, calcium 9.2, AST 39, ALT 49, alkal ine phosphatase 107, albumin 3.2, LDL 123. Urinalysis; glucosuria and proteinuria. Urine drug scree n negative, ketones 0.50. Serum drug screen normal. Hepatitis profile negative. Protein creatinine ratio consistent with nephrotic range of proteinuria. DISCHARGE MEDICATIONS: Lipitor 40 mg p.o. daily, gabapentin 100 mg p.o. b.i.d., tramadol 50 mg t.i.d . p.r.n., Norvasc 10 mg p.o. daily, Clonidine 0.1 mg p.o. t.i.d., Flexeril 5 mg p.o. t.i.d. p.r.n., C ardizem-CD 120 mg p.o. daily, Cardura 8 mg p.o. b.i.d., Humalog insulin as per aggressive sliding sca le, Lantus insulin 80 units at bedtime and 50 units in the morning. CONTRAINDICATIONS: None. CODE STATUS: FULL CODE. INPATIENT CONSULTANTS: Dr. Solano and group was following for renal failure. Dr. Stanton and group was following for patient being in ICU. TEST RESULTS PENDING ON DISCHARGE: None. ALLERGIES: No known drug allergy. DISCHARGE PLAN: Post hospital, the patient is discharged to [facility] and subsequently th e patient will follow up with Dr. Solano as instructed. HOSPITAL COURSE: A 47-year-old male with above-mentioned medical problem who was admitted on [address] Abrams. Please see his H&P for further detail. This patient was having altered mental st atus. Initial CT brain did not show any acute process. A chest x-ray was normal. He was having hyp erglycemia hyperosmolar nonketotic state. He was significantly dehydrated. He was also having acute on chronic kidney failure. Patient was admitted to CCU and that is why pulmonary group was followin g while in hospital because of his critical illness. The patient was initially treated with insulin drip and IV fluid. He was requiring high dose of insu rylan therapy. Upon stabilization, this patient was transferred to medical floor. His blood pressure was high and that is why we have to adjust above-mentioned medication. We have also adjusted gradual ly his insulin dose as above. While in hospital, 24-hour urine collection was done by Dr. Solano. Patient also has nephrotic range o f proteinuria. Patient has acute on chronic kidney failure and now patient has baseline chronic kidn ey disease stage 4. At this point, the patient does not need any dialysis. Patient is hemodynamical ly stable at this point. As patient lives by himself and his and patient wanted to go to [facility] home and that is why with help of case finisher, we arranged [facility] home. The above-mentioned medication, he will be going to [facility] and further adjustment can b e done on an outpatient basis. The patient is seen and examined at bedside today. Paper work for discharge done. Discharge medicat ion reconciliation done. Please see my progress note from today for further detail. This patient will need to follow up with a serum protein electrophoresis, which was sent yesterday. Total time spent on discharge day 31 minutes.
[2018-06-18 14:42] VITALS: BP 160/76
--- NOTE | 2018-06-18 20:31 | PRG ---
DATE OF SERVICE: 06/18/2018 SUBJECTIVE: Patient was seen and examined at bedside and overnight events noted. Patient denies any shortness of breath or chest pain or palpitation. No history of nausea or vomiting or diarrhea or f ever or chills or cramps. OBJECTIVE: GENERAL: This is a well-built male in no apparent distress. VITAL SIGNS: Temperature 97.9, pulse 97, respiratory rate 18, blood pressure 160/76. HEENT: Atraumatic, normocephalic. Oral mucosa is moist. NECK: Supple CARDIOVASCULAR: S1, S2 heard. Rate and rhythm regular. RESPIRATORY: Clear to auscultation. GASTROINTESTINAL: Abdomen is soft. MUSCULOSKELETAL: No tenderness, no edema. DERMATOLOGIC: No skin rash. NEUROLOGIC: Alert, awake, and oriented x3. No focal neurologic deficits. Moving all the extremitie s. PSYCHIATRIC: Mood and affect normal. LABORATORY DATA: No labs done today. ASSESSMENT AND PLAN: 1. Acute kidney injury, on chronic kidney stage IV. Follow up with Dr. Solano as outpatient. 2. Hypertension, stable. 3. Edema. 4. Diabetic nephropathy. 5. Anemia. 6. Obesity. I will sign off. Follow up with Dr. Solano as outpatient.
[2018-06-20 10:20] LABS: A/G Ratio 0.8 (0.7-1.7); Albumin 2.6 g/dL (2.9-4.4); Alpha 1 0.3 g/dL (0.0-0.4); Gamma 0.7 g/dL (0.4-1.8); Globulin, Total 3.1 g/dL (2.2-3.9); M-Spike 0.1 g/dL (Not Observed)
== END 2018-06-18 16:59 | DRG 637 ==
LOC: ERS 22:36 → CCU 06-10 02:34 → T4-B 06-13 10:20
PROVIDERS: ADMIT Internal Medicine; ATTEND Internal Medicine
DX: E11.01 Type 2 diabetes mellitus with hyperosmolarity with coma (principal); G93.41 Metabolic encephalopathy; N18.4 Chronic kidney disease, stage 4 (severe); N17.9 Acute kidney failure, unspecified; I67.4 Hypertensive encephalopathy; I12.9 Hypertensive chronic kidney disease with stage 1 through stage 4 chronic kidney disease, or unspecified chronic kidney disease; E78.5 Hyperlipidemia, unspecified; D86.9 Sarcoidosis, unspecified; E66.9 Obesity, unspecified; D63.1 Anemia in chronic kidney disease; Z91.81 History of falling; Z79.4 Long term (current) use of insulin; E11.21 Type 2 diabetes mellitus with diabetic nephropathy; G47.30 Sleep apnea, unspecified; Z68.37 Body mass index [BMI] 37.0-37.9, adult; E86.0 Dehydration; H54.61 Unqualified visual loss, right eye, normal vision left eye
CPT/HCPCS: 36415; 36416; 51701; 70450; 71045; 76770; 80048; 80053; 80061; 80069; 80074; 80076; 80306; 80307; 81003; 81015; 82010; 82330; 82553; 82570; 82803; 82805; 83036; 83605; 83735; 83930; 84100; 84156; 84165; 84484; 85025; 87040; 93005; 94660; 94760; 96365; 96366; 96372; 96374; 96375; 96376; 99292; G8978-GP-CM; G8979-GP-CJ; G8987-GO-CJ; G8988-GO-CI; J0131; J0360; J1644; J1650; J1815; J2060; J2250; J2543; J7050; S0028

== ENCOUNTER 2018-09-14 11:50 | Inpatient (IN) | payer BC ==
--- NOTE | 2018-09-14 13:05 | CT ---
CT BRAIN NONCONTRAST: DATE: 09/14/2018. TIME: 12:39 p.m. HISTORY: A 48-year-old male with left facial paresthesia and hypesthesia. This stroke alert protocol report was called STAT by Dr. Tucker to Dr. Henry of the emergency departme at 12:43 p.m. on 09/14/2018. FINDINGS: There is no midline shift or any other mass effect. There is no evidence of acute intracranial hemor rhage, large cortical infarct, obstructive hydrocephalus, or extraaxial fluid collection. The calvar ium is intact. The right globe is hyperdense. No interval change since 06/09/2018. IMPRESSION: No acute intracranial findings. CODE CR jn [] POS: DAVID
[2018-09-14 13:10] LABS: #Basophils 0.1 thou/uL (0.0-0.2); #Eosinphils 0.1 thou/uL (0.0-0.7); #Lymphocytes 1.4 thou/uL (1.20-3.40); #Monocytes 0.7 thou/uL (0.11-0.59); #Neutrophils 6.2 thou/uL (1.40-6.50); %Basophils 0.9 % (0.0-1.0); %Eosinophils 0.9 % (0.0-10.0); %Lymphocytes 16.4 % (21.0-51.0); %Monocytes 8.3 % (0.0-10.0); %Neutrophils 73.5 % (42.0-75.0); Hemoglobin 10.8 g/dL (14.0-18.0); Mean Corpuscular HGB CONC 32.6 g/dL (32.0-36.0); Mean Corpuscular Hemoglobin 25.7 pg (27.0-31.0); Mean Corpuscular Volume 78.9 fL (78.0-98.0); Mean Platelet Volume 11.9 fL (7.4-10.4); Platelet Count 186 thou/uL (130-400); RBC Distribution Width 14.7 % (11.5-14.5); Red Blood Cell (RBC) Count 4.19 mill/uL (4.70-6.10); White Blood Cell (WBC) Count 8.5 thou/uL (4.8-10.8)
--- NOTE | 2018-09-14 13:15 | RAD ---
PORTABLE CHEST 1 VIEW: DATE: 09/14/2018. TIME: 12:56 p.m. HISTORY: Left arm pain and swelling, stroke alert. FINDINGS: Comparison is made with the exam of 06/10/2018. The heart size is normal. There are plates of linear atelectasis in the left lower lung. No focal a reas of consolidation, pneumothoraces, luisana pulmonary edema, or large effusions are seen. POS: [facility]
[2018-09-14 13:16] LABS: PTT 27.2 SEC (22.9-36.1); Prothrombin Time 12.7 SEC (12.0-14.7)
[2018-09-14] MEDS ORDERED: ISOVUE-370 76%-LOCM 1 ML ONE (13:21)
--- NOTE | 2018-09-14 13:21 | CT ---
CT ANGIOGRAM HEAD WITH CONTRAST CT ANGIOGRAM NECK WITH CONTRAST: DATE: 09/14/2018. TIME: 12:50 p.m. HISTORY: A 48-year-old male with acute onset of left facial hypesthesia and paresthesia. The diagnostic technologist notified Dr. Henry of the serum creatinine of 3.78 and GFR of 21. Dr. Henry has decided to proceed with the IV contrast injection for the CTA. Dr. Tucker verbally gave this level I stroke alert protocol report by telephone to Dr. Henry at 1:08 p .m. on 09/14/2018. TECHNIQUE: IV contrast injection of Isovue. Arterial bolus chasing technique scan from slightly inferior to the mina to vertex of head. Coronal and sagittal 3D MIP reconstructions. FINDINGS: There is no thrombosis or occlusion of the M1 segments of the bilateral middle cerebral arteries. No high-grade focal short-segment acquired stenosis or occlusion is identified in the proximal vessels of the [place] of [place], both anterior and posterior circulation. No high-grade focal stenosis identified in the intracranial and cervical portions of bilateral verteb ral arteries. Severe focal short-segment stenosis at origin of right vertebral artery from the right subclavian artery. Moderate stenosis at proximal left vertebral artery near origin of left vertebra l artery. No calcified plaque visualized in right carotid bulb. Tiny focal minimal calcified plaque in the lef t carotid bulb. No significant stenosis of brachiocephalic, left subclavian, bilateral common caroti d, or bilateral internal carotid, arteries. IMPRESSION: 1. High-grade stenosis at origin of right vertebral artery. 2. Otherwise, negative. CODE CR POS: DAVID
[2018-09-14 13:29] LABS: ALT (SGPT) 24 U/L (8-55); AST (SGOT) 17 U/L (5-34); Albumin 3.8 g/dL (3.5-5.0); Alkaline Phosphatase 133 U/L (40-150); Anion Gap 13 mmol/L (10-20); BUN (Urea Nitrogen) 49 mg/dL (8.9-20.6); Bilirubin, Total 0.3 mg/dL (0.2-1.2); Calc. Creatinine Clearance 0 mL/min (70-130); Calcium 9.3 mg/dL (7.8-10.44); Carbon Dioxide 25 mmol/L (22-29); Chloride 108 mmol/L (98-107); Estimated GFR-MDRD 15; Globulin 3.3 g/dL (2.4-3.5); Glucose 218 mg/dL (70-105); Potassium 4.2 mmol/L (3.5-5.1); Protein, Total 7.1 g/dL (6.0-8.3); Sodium 142 mmol/L (136-145)
[2018-09-14] MEDS ORDERED: hydrALAZINE 20 MG/ML VIAL ONE ×2 (14:29→17:04)
--- NOTE | 2018-09-14 14:40 | ULT ---
ULTRASOUND DOPPLER DUPLEX VENOUS LEFT UPPER EXTREMITY: HISTORY: A 48-year-old male with left hand pain. TECHNIQUE: Singh scale, color flow, and spectral analysis, of major veins of left upper extremity. Compression a nd release applied to all veins except the subclavian. FINDINGS: There is demonstration of blood flow, with no thrombosis, involving the left internal jugular, subcla vian, axillary, basilic, cephalic, radial, ulnar, and brachial, veins. IMPRESSION: Negative. No evidence of thrombosis of left upper extremity veins. POS: [facility]
[2018-09-14] MEDS ORDERED: Aspirin Chewable 81 MG TAB ONE (15:09)
[2018-09-14] MEDS ORDERED: Ondansetron ODT 4 MG TAB PO PRN (16:09)
[2018-09-14] MEDS ORDERED: Acetaminophen 325 MG TAB PO PRN (16:09)
[2018-09-14] MEDS ORDERED: Ondansetron PF 4 MG/2 ML Vial IVP PRN (16:09)
[2018-09-14] MEDS ORDERED: Guaifenesin DM 100-10/5 ML UDCUP PO PRN (16:09)
[2018-09-14] MEDS ORDERED: HYDROcodone/Acetaminophen 5/325 mg Tablet PO PRN (16:09)
[2018-09-14] MEDS ORDERED: Senokot S 8.6-50 MG TAB PO PRN (16:09)
[2018-09-14] MEDS ORDERED: Loperamide HCl 2 MG CAP PO PRN (16:09)
[2018-09-14] MEDS ORDERED: HumaLOG 300 UNITS/3 ML VIAL SC PRN (16:14)
[2018-09-14] MEDS ORDERED: Dextrose 5% in Water 1,000 ML IV PRN ×2 (16:14→21:29)
[2018-09-14] MEDS ORDERED: Dextrose 50% Abboject 50 ML SYRINGE SLOW IVP PRN ×2 (16:14→21:29)
[2018-09-14] MEDS ORDERED: Labetalol HCl 100 MG/20 ML VIAL SLOW IVP PRN (17:13)
[2018-09-14] MEDS ORDERED: Amlodipine 10 MG TAB PO SCH (21:30)
[2018-09-14] MEDS ORDERED: cloNIDine 0.1 MG TAB PO SCH (21:45)
[2018-09-14] MEDS ORDERED: Insulin Glargine 25 UNITS in Pre-Filled Syringe SC SCH (21:45)
[2018-09-14] MEDS ORDERED: cloNIDine 0.1 MG TAB ONE (21:51)
[2018-09-14] MEDS ORDERED: Amlodipine 5 MG TAB ONE ×2 (21:52→21:55)
[2018-09-14] MEDS ORDERED: HYDROcodone/Acetaminophen 5/325 mg Tablet ONE (22:12)
[2018-09-14] MEDS ORDERED: HumaLOG 300 UNITS/3 ML VIAL ONE (23:13)
--- NOTE | 2018-09-14 23:46 | HP ---
CHIEF COMPLAINT: Weakness and pain in left hand with swelling HISTORY OF PRESENTING ILLNESS: This is a 48-year-old male with a history of sarcoidosis, in remission, uncontrolled hypertension, insulin-dependent diabetic, CKD stage 4, comes in with 1-day history of left hand swelling with pain, numbness, tingling sensation since morning. The patient also noted that his blood pressures were very high, systolics were more than 200s at home. The patient came to the ER for further evaluation. The patient denies any other symptoms of palpitation. Denies chest pain. No complaints of headache, blurred vision, dizziness, or diaphoresis. CTH was wnl. Troponin was wnl. Systolics on arrival was above 200's requiring PRN Hdralazine and labetalol. Patient was started on Nitro gtt to further manage BP. PAST MEDICAL HISTORY: Significant for, 1. Uncontrolled hypertension. 2. CKD, level 4. 3. Diabetes, insulin-dependent. 4. Sarcoidosis under control. 5. Hyperlipidemia. PAST SURGICAL HISTORY: Significant for bilateral knee surgery, shoulder surgery. ALLERGIES: NO KNOWN ALLERGIES. SOCIAL HISTORY: The patient denies any smoking, alcohol, or drugs. REVIEW OF SYSTEMS: CONSTITUTIONAL: The patient complains as above. Denies any fever or chills. HEENT: Denies any headache, blurred vision, ringing in the ears, or any sore throat. RESPIRATORY/CHEST: The patient denies any respiratory distress, wheezing, or palpitation. CARDIOVASCULAR: The patient denies any palpitations or chest pain. MUSCULOSKELETAL: Please see HPI. NEUROLOGIC: Complains of tingling and numbness in the left hand, some weakness. GENITOURINARY: No complaints of dysuria or hesitancy. PHYSICAL EXAMINATION: VITAL SIGNS: On arrival, the patient's systolic was more than 200, heart rate around 80, respiratory rate 14, O2 sats 100% on room air, pain 2 in the scale of 1 to 10, the pain in the left hand. CONSTITUTIONAL: No apparent distress. VITAL SIGNS: As above. HEENT: Normocephalic, atraumatic head. Normal external ears and tympanic membrane. Normal eyelids and conjunctivae. Pupils are round and reactive to light bilaterally. No signs of tonsillitis, midline trachea. NECK: No cervical lymphadenopathy. RESPIRATORY: No respiratory distress noted, good airway entry into both lung jackson. No wheezes. No rales. CARDIOVASCULAR: Regular rate and rhythm, no murmurs, no gallops, no rubs. ABDOMEN: Soft, NT, ND, no masses. No splenomegaly. No guarding. MUSCULOSKELETAL: No swelling or limited range of motion in the extremities. NEUROLOGIC: Cranial nerves are intact. Left hand clinical assistant strength is decreased, sensation is intact. PSYCHIATRIC: No signs of anxiety or depression. LABORATORY DATA: WBC 8.5, hemoglobin 10.8. Sodium 142, potassium 4.2, creatinine 5.03. RADIOLOGY DATA: CT of the head with no acute changes. CT angiography of head and neck with no acute changes. Left arm Doppler ultrasound does not show any DVT. ASSESSMENT AND PLAN: 1. Cerebrovascular accident: Admit the patient to rule out any acute cerebrovascular accident, stroke workup, start the patient on aspirin and statin , obtain MRI of the head, echocardiogram. 2. Uncontrolled hypertension. Restart the patient's home medication, p.r.n. hydralazine, labetalol. If required, nitroprusside drip to control the blood pressures. 3. Diabetes: Diabetic diet, restart home Lantus, sliding scale insulin with Accu-Cheks, diabetic diet. 4. Consulted Dr. Phan with the Cardiology and Dr. Mohini Paulino for Renal. Job ID: [id number] [facility] SYSTEMRhett
[2018-09-15] MEDS ORDERED: HumaLOG 300 UNITS/3 ML VIAL SC SCH (02:15)
[2018-09-15] MEDS ORDERED: niCARdipine 20MG In NaCl 20 MG/200 ML BAG ONE (03:15)
[2018-09-15] MEDS ORDERED: Nitroglycerin 50 MG/250 ML BOT 250 ML ONE (03:32)
[2018-09-15 04:07] LABS: #Lymphocytes 1.2 thou/uL (1.20-3.40); #Monocytes 0.5 thou/uL (0.11-0.59); %Basophils 0.2 % (0.0-1.0); %Eosinophils 0.5 % (0.0-10.0); %Lymphocytes 13.8 % (21.0-51.0); %Monocytes 5.8 % (0.0-10.0); %Neutrophils 79.7 % (42.0-75.0); Hemoglobin 9.9 g/dL (14.0-18.0); Mean Corpuscular HGB CONC 32.1 g/dL (32.0-36.0); Mean Corpuscular Hemoglobin 25.2 pg (27.0-31.0); Mean Corpuscular Volume 78.4 fL (78.0-98.0); Mean Platelet Volume 12.3 fL (7.4-10.4); Platelet Count 177 thou/uL (130-400); RBC Distribution Width 14.7 % (11.5-14.5); Red Blood Cell (RBC) Count 3.92 mill/uL (4.70-6.10); White Blood Cell (WBC) Count 8.8 thou/uL (4.8-10.8)
[2018-09-15 04:25] LABS: Anion Gap 17 mmol/L (10-20); BUN (Urea Nitrogen) 46 mg/dL (8.9-20.6); Calc. Creatinine Clearance 0 mL/min (70-130); Carbon Dioxide 21 mmol/L (22-29); Chloride 107 mmol/L (98-107); Estimated GFR-MDRD 16; Glucose 335 mg/dL (70-105); Potassium 4.1 mmol/L (3.5-5.1); Sodium 141 mmol/L (136-145)
[2018-09-15] MEDS ORDERED: cloNIDine 0.1 MG TAB PO SCH (09:00)
[2018-09-15] MEDS ORDERED: Atorvastatin Calcium 40 MG TAB PO SCH (09:00)
[2018-09-15] MEDS ORDERED: Amlodipine 10 MG TAB PO SCH (09:00)
[2018-09-15] MEDS ORDERED: traMADol HCl 50 MG TAB PO PRN (11:32)
[2018-09-15] MEDS: Atorvastatin Calcium 40 MG TAB PO SCH ×2 (11:46→20:02)
[2018-09-15] MEDS: Heparin 5,000 UNITS/ML VIAL SC SCH ×3 (11:46→20:02)
[2018-09-15 12:04] LABS: Phosphorus 5.2 mg/dL (2.3-4.7)
[2018-09-15] MEDS: HumuLIN 70/30 (300 UNITS/3 ML VIAL) SC SCH ×2 (12:20→17:25)
[2018-09-15] MEDS: HumaLOG 300 UNITS/3 ML VIAL SC PRN ×3 (12:22→21:14)
--- NOTE | 2018-09-15 14:22 | ULT ---
ULTRASOUND RETROPERITONEUM COMPLETE: (RENAL) DATE: 09/15/2018. HISTORY: A 48-year-old male with stage IV chronic kidney disease. FINDINGS: The right kidney measures 12 x 6.5 x 5.5 cm. The left kidney measures 11.5 x 7 x 7 cm. Both kidneys have normal cortical thickness and normal cortical echogenicity. There is no hydronephrosis. Curso ry images of the urinary bladder demonstrate no gross abnormality. No moderate sized or large cystic or solid mass is identified in the kidneys. IMPRESSION: Normal jn [] POS: DAVID
[2018-09-15] MEDS ORDERED: cloNIDine 0.3 MG TAB PO SCH (15:00)
--- NOTE | 2018-09-15 15:15 | PDOC.PN ---
- Subjective Encounter Start Date: 09/15/18 Encounter Start Time: 15:13 Subjective: reduced righ hand pain and swelling, decreased numbness and tingling - Objective Resuscitation Status - Order Detail: 09/14/18 16:09 Resuscitation Status Routine Resuscitation Status: FULL: Full Resuscitation Vital Signs & Weight: Vital Signs (12 hours) Pulse Ox 09/15/18 10:12 99 Result Diagrams: 09/15/18 03:28 09/15/18 03:28 Additional Labs: Accuchecks 09/15/18 09/15/18 09/15/18 12:05 08:25 01:54 POC Glucose 358 H 295 H 334 H 09/14/18 09/14/18 22:50 21:12 POC Glucose 339 H 353 H Phys Exam - Physical Examination HEENT: PERRLA, moist MMs, sclera anicteric, TM's clear, oral pharynx no lesions , 2+ tonsils Neck: no nodes, no JVD, supple, full ROM Respiratory: no wheezing, no rales, no rhonchi Cardiovascular: RRR, no significant murmur, no rub Gastrointestinal: soft, non-tender, no distention Musculoskeletal: edema present Neurological: non-focal, normal sensation, moves all 4 limbs mildly decreased right hand strength Psychiatric: normal affect, A&O x 3 Skin: no rash, normal turgor, cap refill <2 seconds Dx/Plan (1) Hypertensive urgency Code(s): I16.0 - HYPERTENSIVE URGENCY Status: Acute Comment: Uncontrolled hypertension, presented with systolics of more than 200, requiring Nitro gtt. Restarted on home Clonidine and Diltiazem. Cards consulted. (2) Weakness Code(s): R53.1 - WEAKNESS Status: Acute Comment: left hand weakness, PT/OT. CT wnl, requested MRI. Stroke workup. (3) Dyslipidemia Code(s): E78.5 - HYPERLIPIDEMIA, UNSPECIFIED Status: Chronic Comment: continue statin (4) Obesity (BMI 30-39.9) Code(s): E66.9 - OBESITY, UNSPECIFIED Status: Chronic (5) Acute renal failure superimposed on chronic kidney disease Code(s): N17.9 - ACUTE KIDNEY FAILURE, UNSPECIFIED; N18.9 - CHRONIC KIDNEY DISEASE, UNSPECIFIED Status: Acute Qualifiers: Chronic kidney disease stage: stage 4 (severe) Comment: trend creatinine, renal consulted. Diabetic and poorly controlled HTN, history of Sarcoidosis (6) Diabetic hypertension-nephrosis syndrome Code(s): E11.21 - TYPE 2 DIABETES MELLITUS WITH DIABETIC NEPHROPATHY Status: Acute Comment: Follow up on Hb A1C, continue Home Humolog 70/30, albeit reduced dose and accuchecks and SS insulin - Plan cont current plan of care, plan discussed w/ family, PT/OT, DVT proph w/lovenox * .
[2018-09-15] MEDS: Aspirin Chewable 81 MG TAB PO SCH (15:17)
--- NOTE | 2018-09-15 16:29 | MRI ---
MRI BRAIN NONCONTRAST: DATE: 09/15/18 HISTORY: 48-year-old male with left facial paresthesia and hypesthesia. COMPARISON: No prior brain MRIs are available. FINDINGS: The right globe has diffusely abnormal signal, with intermediate signal intensity on all pulse sequen andres filling what appears to be the majority of the volume of the vitreous chamber, and a thin, cresce ntic, far posterior component of the globe that has fluid signal. The bilateral [place] lenses appear to be intact. Outside of the globe, no abnormality of the right orbit is visualized. There is no restricted diffusion to indicate any acute brain infarction. The ventricles are normal in size and configuration. Chronic ischemic white matter changes are mild, with multiple scattered tiny focal T2-hyperintensities in the radiata and centrum semiovale. There is no evidence of recen t or remote intra-axial hemorrhage. No mass effect, midline shift, or extra-axial fluid collection. A cranial nerve protocol with and without contrast was not ordered and not performed. It is available , if desired. IMPRESSION: 1. Mild chronic ischemic white matter changes of the brain due to microvascular atherosclerosis. 2. No other brain abnormality identified. No acute infarction. 3. Chronically abnormal right globe. KAYLYNN Harrison POS: DAVID
--- NOTE | 2018-09-15 16:57 | CON ---
DATE OF CONSULTATION: HISTORY OF PRESENT ILLNESS: Jean-Pierre Jacobs is a 48-year-old black male with history of sarcoidosis, poorly-controlled hypertension, diabetes, chronic kidney disease stage 4. He came to emergency room complaining of numbness of his left arm as well as increased swelling. He also states that he had weakness of his left fingers. His blood pressures were very high, consistently over 200s at home. He denies any chest, jaw, or neck discomfort. He denies any shortness of breath. He has not had any lightheadedness, dizziness, or syncope. PAST MEDICAL HISTORY: Poorly controlled hypertension, chronic kidney disease, diabetes, sarcoidosis, hyperlipidemia. OPERATIONS: Bilateral knee surgery and shoulder surgery. MEDICATIONS: 1. Amlodipine 10 mg daily. 2. Atorvastatin 40 daily. 3. Clonidine 0.1 mg t.i.d. 4. Clonidine patch. 5. Flexeril 5 mg t.i.d. p.r.n. 6. Diltiazem 120 daily. 7. Cardura 8 mg b.i.d. 8. Gabapentin b.i.d. 9. Humalog insulin. 10. Lantus insulin. 11. Tramadol 50 t.i.d. p.r.n. ALLERGIES: NONE. SOCIAL HISTORY: He does not smoke or drink. FAMILY HISTORY: Negative for coronary artery disease. REVIEW OF SYSTEMS: A 12-point review of systems is otherwise unremarkable. PHYSICAL EXAMINATION: VITAL SIGNS: Blood pressure 160/76, pulse 99. HEENT: PERRL. NECK: Supple. CHEST: Clear. CARDIAC: S1 and S2 normal without any S3, S4, or murmurs. ABDOMEN: Normal bowel sounds without tenderness or organomegaly. The abdomen is obese. EXTREMITIES: Reveal no clubbing, cyanosis, or edema. NEUROLOGICAL: Grossly intact. 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 SKIN: Warm and dry. LABORATORY DATA: EKG reveals normal sinus rhythm and is normal. Vascular ultrasound of the venous structures left arm revealed no evidence of deep venous thrombosis. CT angiogram revealed high-grade stenosis at the origin of the right vertebral artery. There is no stenosis of the [place] ir[place] of [place]. Brain CT revealed no significant abnormality. Currently, he is going down for head MRI. Hemoglobin 9.9, hematocrit 30.7, white count 8800, platelets 177,000. INR 1.0. Sodium 141 , potassium 4.1, chloride 107, carbon dioxide 21, BUN 46, creatinine 4.80. Troponin I normal x4. IMPRESSION: 1. Probable transient ischemic attack. 2. Hypertension, poorly controlled. 3. Diabetes. 4. Hypercholesterolemia. 5. Obesity. 6. Chronic kidney disease stage 4. PLAN: Echocardiogram will be performed to better assess left ventricular function. Blood pressure needs to be adequately controlled and consideration should be given to the addition of a beta nyla. I will follow the patient with you. Job ID: [id number] MTDD
[2018-09-15] MEDS: cloNIDine 0.1 MG TAB PO SCH (20:02)
[2018-09-15] MEDS ORDERED: Insulin Glargine 25 UNITS in Pre-Filled Syringe SC SCH (21:00)
[2018-09-16 04:37] LABS: Hemoglobin A1c 10.7 % (4.0-6.0)
[2018-09-16 04:50] LABS: Anion Gap 15 mmol/L (10-20); BUN (Urea Nitrogen) 59 mg/dL (8.9-20.6); Calc. Creatinine Clearance 22 mL/min (70-130); Calcium 9.1 mg/dL (7.8-10.44); Carbon Dioxide 23 mmol/L (22-29); Cardiac Risk 6.3 (Less than 4.5); Chloride 107 mmol/L (98-107); Cholesterol 145 mg/dl (< 200 Desired); Estimated GFR-MDRD 12; Glucose 181 mg/dL (70-105); HDL Cholesterol 23 mg/dL (>60 Neg Risk); LDL Cholesterol, Calculated 97 mg/dL; Potassium 4.3 mmol/L (3.5-5.1); Sodium 141 mmol/L (136-145); Triglycerides 127 mg/dL (Less than 150)
[2018-09-16] MEDS: Nitroglycerin 50 MG/250 ML BOT 250 ML IVPB SCH ×2 (06:21→07:25)
[2018-09-16] MEDS: HumaLOG 300 UNITS/3 ML VIAL SC PRN ×4 (06:23→16:05)
[2018-09-16] MEDS: HumuLIN 70/30 (300 UNITS/3 ML VIAL) SC SCH ×3 (08:01→17:32)
[2018-09-16] MEDS: Aspirin Chewable 81 MG TAB PO SCH (08:02)
[2018-09-16] MEDS: Heparin 5,000 UNITS/ML VIAL SC SCH ×2 (08:02→20:22)
[2018-09-16] MEDS: cloNIDine 0.1 MG TAB PO SCH ×2 (08:02→20:23)
[2018-09-16] MEDS: Carvedilol 25 MG TAB PO SCH ×2 (08:02→17:28)
[2018-09-16] MEDS: Torsemide 10 MG TAB PO SCH (08:03)
[2018-09-16] MEDS: Minoxidil 10 MG TAB PO SCH (08:03)
[2018-09-16] MEDS: Doxazosin 2 MG TAB PO SCH (08:19)
--- NOTE | 2018-09-16 09:49 | CON ---
DATE OF CONSULTATION: 09/16/2018 HISTORY OF PRESENT ILLNESS: Jean-Pierre Jacobs was admitted to the hospital on 09/14/2017. We consulted on 09/16/2018, after he has been in the ICU for uncontrolled blood pressure. He presented with left hand swelling. Apparently, he could not sleep in an usual position. He has known history of diabetes, hypertension, and presented with markedly elevated blood pressure at home, which he tells me systolic was greater than 200. He went to the urgent care. They transferred him straight to [facility], where he had been on nitroglycerin drip. He denied any headache, nausea, vomiting, or any chest pain. He denies difficulty breathing. He is a nonsmoker. He does have a history of sleep apnea and sees Dr. Stanton in our office. This morning, he is much improved. PAST MEDICAL HISTORY: Hypertension, renal failure, diabetes, presumed sarcoid. PAST SURGICAL HISTORY: Previous surgeries: Knee surgery, shoulder surgery. HABITS: Alcohol, none. Tobacco, none. MEDICATIONS: Home medicines: 1. Losartan 50. 2. Catapres 0.2 twice a day. 3. Doxazosin 8 mg. 4. Demadex 10. 5. Cardizem CD 360. 6. Lipitor 40. 7. Tramadol 50. 8. Insulin, apparently 70/30 twice a day. SOCIAL AND FAMILY HISTORY: Unremarkable. REVIEW OF SYSTEMS: Ten-point, negative. PHYSICAL EXAMINATION: VITAL SIGNS: Blood pressure on nitroglycerin drip is 130/90, pulse 70, respiratory rate 18. CHEST: Decreased breath sounds. No wheezing. CARDIAC: Normal S1 and S2. No gallops. ABDOMEN: No masses. LABORATORY DATA: He had MRI done of the brain yesterday, which showed chronic white matter changes. No other abnormality was noted. IMPRESSION: Uncontrolled hypertension, chronic renal failure, diabetes, obesity, and sleep apnea. PLAN: The patient Pulmonary/Critical Care will follow while in the MICU and notify Dr. Stanton. TIME SPENT: This is a consultation note, 70 minutes, 50% in direct patient care. Job ID: [id number]
--- NOTE | 2018-09-16 15:24 | PDOC.PN ---
- Subjective Encounter Start Date: 09/16/18 Encounter Start Time: 15:21 Subjective: left arm pain and tingling better -: no CP/dizziness - Objective Resuscitation Status - Order Detail: 09/14/18 16:09 Resuscitation Status Routine Resuscitation Status: FULL: Full Resuscitation MAR Reviewed: Yes Vital Signs & Weight: Vital Signs (12 hours) Temp BP Pulse Ox 09/16/18 11:00 98.7 F 09/16/18 08:02 136/90 09/16/18 08:00 100 09/16/18 07:00 99.1 F 09/16/18 06:57 95 09/16/18 04:00 98.6 F Weight Weight 243 lb 9.773 oz Most Recent Monitor Data Heart Rate from ECG 93 NIBP 157/94 NIBP BP-Mean 115 Respiration from ECG 17 SpO2 97 I&O: 09/15/18 09/16/18 09/17/18 06:59 06:59 06:59 Intake Total 2124.8 360 Output Total 975 500 Balance 1149.8 -140 Result Diagrams: 09/15/18 03:28 09/16/18 04:23 Additional Labs: Accuchecks 09/16/18 09/16/18 09/16/18 11:49 08:00 06:24 POC Glucose 203 H 242 H 264 H 09/15/18 09/15/18 21:03 17:12 POC Glucose 354 H 349 H Laboratory Tests 06/16/18 06/17/18 09/14/18 05:00 07:25 12:56 Creatinine 3.53 H 3.78 H 5.03 H 09/15/18 09/16/18 03:28 04:23 Creatinine 4.80 H 6.14 H Phys Exam - Physical Examination Constitutional: NAD HEENT: PERRLA, moist MMs, sclera anicteric, oral pharynx no lesions Neck: no nodes, no JVD, supple, full ROM Respiratory: no wheezing, no rales, no rhonchi, clear to auscultation bilateral Cardiovascular: RRR, no significant murmur, no rub Gastrointestinal: soft, non-tender, no distention, positive bowel sounds Musculoskeletal: no edema, pulses present Neurological: non-focal, normal sensation, moves all 4 limbs Psychiatric: normal affect, A&O x 3 Skin: no rash Dx/Plan (1) Hypertensive urgency Code(s): I16.0 - HYPERTENSIVE URGENCY Status: Acute Comment: Uncontrolled hypertension, presented with systolics of more than 200, better now.off of Nitro gtt. Restarted on home Clonidine and Diltiazem. Cards and nephrology consulted. (2) CKD (chronic kidney disease) Code(s): N18.9 - CHRONIC KIDNEY DISEASE, UNSPECIFIED Status: Chronic Qualifiers: Chronic kidney disease stage: stage 3 (moderate) Qualified Code(s): N18.3 - Chronic kidney disease, stage 3 (moderate) (3) Vertebral artery stenosis Code(s): I65.09 - OCCLUSION AND STENOSIS OF UNSPECIFIED VERTEBRAL ARTERY Status: Chronic Comment: cont ASA,statin.No CVA on MRI (4) Dyslipidemia Code(s): E78.5 - HYPERLIPIDEMIA, UNSPECIFIED Status: Chronic Comment: continue statin (5) Obesity (BMI 30-39.9) Code(s): E66.9 - OBESITY, UNSPECIFIED Status: Chronic (6) Sarcoidosis Code(s): D86.9 - SARCOIDOSIS, UNSPECIFIED Status: Chronic Comment: - Plan BP better.Ok to tele.Meds per cardio & nephro -: HD stable -: ambulate -: Insulin 70/30 and ISS -: DC in next 24-48 nhrs * . Review of Systems - Review of Systems Constitutional: weakness. negative: fever, chills, sweats, malaise, other Respiratory: negative: Cough, Dry, Shortness of Breath, Hemoptysis, SOB with Excertion, Pleuritic Pain, Sputum, Wheezing Cardiovascular: negative: chest pain, palpitations, orthopnea, paroxysmal nocturnal dyspnea, edema, light headedness, other Gastrointestinal: negative: Nausea, Vomiting, Abdominal Pain, Diarrhea, Constipation, Melena, Hematochezia, Other Genitourinary: negative: Dysuria, Frequency, Incontinence, Hematuria, Retention , Other Musculoskeletal: negative: Neck Pain, Shoulder Pain, Arm Pain, Back Pain, Hand Pain, Leg Pain, Foot Pain, Other Neurological: negative: Weakness, Numbness, Incoordination, Change in Speech, Confusion, Seizures, Other - Medications/Allergies Allergies/Adverse Reactions: Allergies Allergy/AdvReac Type Severity Reaction Status Date / Time No Known Allergies Allergy Verified 07/24/17 09:57 Medications: Current Medications Acetaminophen (Tylenol) 650 mg PO Q4H PRN PRN Reason: Headache/Fever/Mild Pain (1-3) Last Admin: 09/15/18 11:24 Dose: 650 mg Hydrocodone Bitart/Acetaminophen ([place] 5/325) 1 tab PO Q4H PRN PRN Reason: Moderate Pain (4-6) Last Admin: 09/16/18 08:18 Dose: 1 tab Aspirin (Aspirin Chewable) 81 mg PO DAILY [facility] Last Admin: 09/16/18 08:02 Dose: 81 mg Atorvastatin Calcium (Lipitor) 40 mg PO HS [facility] Last Admin: 09/15/18 20:02 Dose: 40 mg Carvedilol (Coreg) 25 mg PO BID-WM [facility] Last Admin: 09/16/18 08:02 Dose: 25 mg Clonidine (Catapres) 0.1 mg PO BID [facility] Last Admin: 09/16/18 08:02 Dose: 0.1 mg Dextrose/Water (Dextrose 50%) 25 gm SLOW IVP PRN PRN PRN Reason: Hypoglycemia Doxazosin Mesylate (Cardura) 8 mg PO DAILY [facility] Last Admin: 09/16/18 08:19 Dose: 8 mg Glucagon (Glucagon) 1 mg IM PRN PRN PRN Reason: Hypoglycemia Guaifenesin/Dextromethorphan (Robitussin Dm) 15 ml PO Q4H PRN PRN Reason: Cough Heparin Sodium (Porcine) (Heparin) 5,000 units SC BID [facility] Last Admin: 09/16/18 08:02 Dose: 5,000 units Nitroglycerin/Dextrose (Nitroglycerin 50 Mg/250 Ml Bot) 250 mls @ 0 mls/hr IVPB INF [facility]; Protocol Last Admin: 09/16/18 07:25 Dose: 250 mls Dextrose/Water (D5w) 1,000 mls @ 0 mls/hr IV .Q0M PRN PRN Reason: Hypoglycemia Insulin Human Isoph/Insulin Regular (Humulin 70/30) 25 units SC AC [facility] Last Admin: 09/16/18 11:51 Dose: 25 unit Insulin Human Lispro (Humalog) 0 units SC .MODERATE SLIDING SC PRN PRN Reason: Moderate Correctional Scale Last Admin: 09/16/18 11:51 Dose: 4 unit Labetalol HCl (Normodyne) 20 mg SLOW IVP Q4H PRN PRN Reason: Hypertension Loperamide HCl (Imodium) 4 mg PO ONE PRN PRN Reason: Diarrhea/Loose Stools Stop: 09/17/18 16:10 Minoxidil (Minoxidil) 10 mg PO DAILY [facility] Last Admin: 09/16/18 08:03 Dose: 10 mg Ondansetron HCl (Zofran Odt) 4 mg PO Q6H PRN PRN Reason: Nausea/Vomiting Ondansetron HCl (Zofran) 4 mg IVP Q6H PRN PRN Reason: Nausea/Vomiting Last Admin: 09/15/18 11:24 Dose: 4 mg Senna/Docusate Sodium (Senokot S) 2 tab PO BID PRN PRN Reason: Constipation Sodium Chloride (Flush - Normal Saline) 10 ml IVF Q12HR [facility] Last Admin: 09/16/18 08:03 Dose: 10 ml Sodium Chloride (Flush - Normal Saline) 10 ml IVF PRN PRN PRN Reason: Saline Flush Torsemide (Demadex) 10 mg PO DAILY [facility] Last Admin: 09/16/18 08:03 Dose: 10 mg Tramadol HCl (Ultram) 50 mg PO Q6H PRN PRN Reason: Pain
--- NOTE | 2018-09-16 19:17 | PRG ---
DATE OF SERVICE: 09/16/2018 SUBJECTIVE: The patient is seen and examined, seems to be doing much better. OBJECTIVE: VITAL SIGNS: Noted with the following vital signs; afebrile, temperature 98.2, pulse 86, respiratory rate of 18, O2 saturations 99% with blood pressure 126/61. HEENT: Unremarkable. CARDIOVASCULAR: First and second heart sounds were heard. RESPIRATORY: Clear to auscultation. DIGESTIVE SYSTEM: Revealed a benign abdomen. Positive bowel sounds. EXTREMITIES: No peripheral edema. SKIN: No new gross rash. LYMPHATICS: No peripheral lymphadenopathy. LABORATORY INVESTIGATION: Significant for the following. Hemoglobin of 9.9. Chemistry showed a creatinine of 6.14 with BUN of 59. Hemoglobin A1c of 10.7. IMPRESSION: 1. Advanced chronic kidney disease stage 4/5. The slight elevation in creatinine is a reflection of the improvement in the hemodynamics/blood pressure control of this patient. 2. Anemia likely anemia of chronic kidney disease. 3. Multidrug resistant hypertension. PLAN: 1. We will continue to adjust antihypertensive medications to optimize hemodynamics. We will work towards weaning down the clonidine. We will reduce the clonidine to once a day and eventually discontinue clonidine outright. 2. Further management will be dependent on the clinical course. Renally dose all medications. 3. Might begin to have a discussion around renal replacement therapy including transplant and dialysis as these modalities or treatment will become likely eminent. Job ID: [id number]
[2018-09-16] MEDS: Atorvastatin Calcium 40 MG TAB PO SCH (20:23)
--- NOTE | 2018-09-17 01:14 | CON ---
DATE OF CONSULTATION: CONSULTING PHYSICIAN: Mohini Paulino MD REQUESTING PHYSICIAN: Victorina Vogt MD REASON FOR CONSULTATION: Advanced kidney disease and hypertensive urgency. IMPRESSION: 1. Advanced chronic kidney disease stage 4/5, likely in the context of hypertensive nephrosclerosis and diabetic nephropathy. 2. Hypertensive urgency/emergency in the context of problem #1 above. PLAN: 1. The goal will be to simplify this patient's antihypertensive medications. We will begin to work constructively towards weaning this patient off clonidine and simplify the medications to once-a-day regimen, at most twice a day regimen in order to improve medical compliance. 2. Renally dose all medications for low GFR. 3. Renal ultrasound. 4. Avoid potentially nephrotoxic agents. HISTORY OF PRESENT ILLNESS: History is that of 48-year-old gentleman with advanced chronic kidney disease stage 4, who presented here with severely elevated blood pressure with complain of weakness and pain in the left arm and left hand swelling. The patient noted with systolic blood pressure above 200 and as a result of the findings of advanced renal failure, decision was taken to involve Renal in the management of this case. PAST MEDICAL HISTORY: Significant for uncontrolled hypertension on multiple medications, therefore, multi-drug resistant hypertension. Chronic kidney disease stage 4. Insulin-dependent diabetes. Sarcoidosis. Dyslipidemia. ALLERGIES: NO KNOWN DRUG ALLERGY. SOCIAL HISTORY: No alcohol. No tobacco. No illicit drug use. FAMILY HISTORY: No family history of kidney disease. REVIEW OF SYSTEMS: As documented in the body of the history. All other systems were reviewed and found not to be significantly related to present illness. PHYSICAL EXAMINATION: GENERAL: The patient is found to be ill looking. VITAL SIGNS: Severely hypertensive with systolic blood pressure above 200. HEENT: Examination unremarkable. CARDIOVASCULAR SYSTEM: First and second heart sounds were heard. RESPIRATORY SYSTEM: Clear to auscultation. DIGESTIVE SYSTEM: Revealed a benign abdomen. Positive bowel sounds. EXTREMITIES: No peripheral edema. SKIN: No new gross rash. LYMPHATICS: No peripheral lymphadenopathy. SUMMARY: A 48-year-old gentleman with advanced chronic kidney disease, who presented here with hypertensive emergency. Thank you for this consultation. We will follow with you. Job ID: [id number]
[2018-09-17 06:50] LABS: Anion Gap 16 mmol/L (10-20); BUN (Urea Nitrogen) 56 mg/dL (8.9-20.6); Calc. Creatinine Clearance 26 mL/min (70-130); Calcium 8.9 mg/dL (7.8-10.44); Carbon Dioxide 21 mmol/L (22-29); Chloride 107 mmol/L (98-107); Estimated GFR-MDRD 12; Glucose 168 mg/dL (70-105); Potassium 4.2 mmol/L (3.5-5.1); Sodium 140 mmol/L (136-145)
[2018-09-17] MEDS: HumuLIN 70/30 (300 UNITS/3 ML VIAL) SC SCH ×3 (08:11→16:57)
[2018-09-17] MEDS: Heparin 5,000 UNITS/ML VIAL SC SCH (08:11)
[2018-09-17] MEDS: Doxazosin 2 MG TAB PO SCH (08:12)
[2018-09-17] MEDS: cloNIDine 0.1 MG TAB PO SCH ×2 (08:12→21:13)
[2018-09-17] MEDS: Aspirin Chewable 81 MG TAB PO SCH (08:12)
[2018-09-17] MEDS: Carvedilol 25 MG TAB PO SCH ×2 (08:12→16:47)
[2018-09-17] MEDS: Minoxidil 10 MG TAB PO SCH (08:13)
[2018-09-17] MEDS ORDERED: Pantoprazole 40 MG VIAL IVP SCH (09:15)
[2018-09-17] MEDS: Torsemide 10 MG TAB PO SCH (09:35)
--- NOTE | 2018-09-17 11:12 | PDOC.PN ---
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.no nausea/vomiting -: denies use of chr NSAIDs reports H/O same many yrs ago and a colonoscopy was done which showed some polyps - Objective Resuscitation Status - Order Detail: 09/14/18 16:09 Resuscitation Status Routine Resuscitation Status: FULL: Full Resuscitation MAR Reviewed: Yes Vital Signs & Weight: Vital Signs (12 hours) Temp Pulse Resp BP Pulse Ox 09/17/18 07:15 99 F 101 H 18 167/80 H 96 09/17/18 04:00 98.4 F 91 18 144/74 H 95 Weight Weight 275 lb 8 oz Most Recent Monitor Data Heart Rate from ECG 89 NIBP 126/61 NIBP BP-Mean 82 Respiration from ECG 20 SpO2 96 I&O: 09/16/18 09/17/18 09/18/18 06:59 06:59 06:59 Intake Total 2124.8 1300 Output Total 975 1200 Balance 1149.8 100 Result Diagrams: 09/15/18 03:28 09/17/18 06:11 Additional Labs: Accuchecks 09/17/18 09/17/18 09/16/18 10:51 05:43 20:56 POC Glucose 379 H 181 H 111 H 09/16/18 09/16/18 16:04 11:49 POC Glucose 270 H 203 H Laboratory Tests 06/13/18 06/17/18 06/17/18 04:41 07:25 07:25 Hgb 9.7 L Creatinine 3.79 H 3.78 H 09/14/18 09/14/18 09/15/18 12:56 12:56 03:28 Hgb 10.8 L Creatinine 5.03 H 4.80 H 09/15/18 09/16/18 09/17/18 03:28 04:23 06:11 Hgb 9.9 L Creatinine 6.14 H 5.94 H Phys Exam - Physical Examination Constitutional: NAD HEENT: PERRLA, moist MMs, sclera anicteric, oral pharynx no lesions Neck: no nodes, no JVD, supple, full ROM Respiratory: no wheezing, no rales, no rhonchi, clear to auscultation bilateral Cardiovascular: RRR, no significant murmur, no rub Gastrointestinal: soft, non-tender, no distention, positive bowel sounds R CVA tenderness Musculoskeletal: no edema, pulses present Neurological: non-focal, normal sensation, moves all 4 limbs Psychiatric: normal affect, A&O x 3 Skin: no rash, normal turgor, cap refill <2 seconds Dx/Plan (1) Hematochezia Code(s): K92.1 - MELENA Status: Acute (2) Hypertensive urgency Code(s): I16.0 - HYPERTENSIVE URGENCY Status: Acute Comment: Uncontrolled hypertension, presented with systolics of more than 200, better now.off of Nitro gtt. Restarted on home medsTitrated as per Cards and nephrology (3) CKD (chronic kidney disease) Code(s): N18.9 - CHRONIC KIDNEY DISEASE, UNSPECIFIED Status: Chronic Qualifiers: Chronic kidney disease stage: stage 3 (moderate) Qualified Code(s): N18.3 - Chronic kidney disease, stage 3 (moderate) (4) Vertebral artery stenosis Code(s): I65.09 - OCCLUSION AND STENOSIS OF UNSPECIFIED VERTEBRAL ARTERY Status: Chronic Comment: cont ASA,statin.No CVA on MRI (5) Dyslipidemia Code(s): E78.5 - HYPERLIPIDEMIA, UNSPECIFIED Status: Chronic Comment: continue statin (6) Obesity (BMI 30-39.9) Code(s): E66.9 - OBESITY, UNSPECIFIED Status: Chronic (7) Sarcoidosis Code(s): D86.9 - SARCOIDOSIS, UNSPECIFIED Status: Chronic Comment: - Plan DVT proph w/SCDs hold heparin.Start PPI IV. -: Stat H/H checked and stable. -: Will get CT A?P d/t back pain and CVA tenderness. ? hematoma.on ASA -: ? ischemic colitis as pt has vasculopathy w vertebral art stenosis as well -: will consult GI.NPO for now * .BP better controlled.Cont meds as below * appreciate nephro and cardio input * may need Hemodialysis in near future for worsening renal failure * AM labs Review of Systems - Review of Systems Constitutional: negative: fever, chills, sweats, weakness, malaise, other Respiratory: negative: Cough, Dry, Shortness of Breath, Hemoptysis, SOB with Excertion, Pleuritic Pain, Sputum, Wheezing Cardiovascular: negative: chest pain, palpitations, orthopnea, paroxysmal nocturnal dyspnea, edema, light headedness, other Gastrointestinal: Hematochezia. negative: Nausea, Vomiting, Abdominal Pain, Diarrhea, Constipation, Melena, Other Genitourinary: negative: Dysuria, Frequency, Incontinence, Hematuria, Retention , Other Musculoskeletal: Back Pain. negative: Neck Pain, Shoulder Pain, Arm Pain, Hand Pain, Leg Pain, Foot Pain, Other Skin: negative: Rash, Lesions, Lyndon, Bruising, Other Neurological: negative: Weakness, Numbness, Incoordination, Change in Speech, Confusion, Seizures, Other - Medications/Allergies Allergies/Adverse Reactions: Allergies Allergy/AdvReac Type Severity Reaction Status Date / Time No Known Allergies Allergy Verified 07/24/17 09:57 Medications: Current Medications Acetaminophen (Tylenol) 650 mg PO Q4H PRN PRN Reason: Headache/Fever/Mild Pain (1-3) Last Admin: 09/15/18 11:24 Dose: 650 mg Hydrocodone Bitart/Acetaminophen ([place] 5/325) 1 tab PO Q4H PRN PRN Reason: Moderate Pain (4-6) Last Admin: 09/16/18 08:18 Dose: 1 tab Aspirin (Aspirin Chewable) 81 mg PO DAILY [facility] Last Admin: 09/17/18 08:12 Dose: 81 mg Atorvastatin Calcium (Lipitor) 40 mg PO HS [facility] Last Admin: 09/16/18 20:23 Dose: 40 mg Carvedilol (Coreg) 25 mg PO BID[facility] Last Admin: 09/17/18 08:12 Dose: 25 mg Clonidine (Catapres) 0.1 mg PO BID [facility] Last Admin: 09/17/18 08:12 Dose: 0.1 mg Dextrose/Water (Dextrose 50%) 25 gm SLOW IVP PRN PRN PRN Reason: Hypoglycemia Doxazosin Mesylate (Cardura) 8 mg PO DAILY [facility] Last Admin: 09/17/18 08:12 Dose: 8 mg Glucagon (Glucagon) 1 mg IM PRN PRN PRN Reason: Hypoglycemia Guaifenesin/Dextromethorphan (Robitussin Dm) 15 ml PO Q4H PRN PRN Reason: Cough Dextrose/Water (D5w) 1,000 mls @ 0 mls/hr IV .Q0M PRN PRN Reason: Hypoglycemia Insulin Human Isoph/Insulin Regular (Humulin 70/30) 25 units SC [facility] Last Admin: 09/17/18 08:11 Dose: 25 unit Insulin Human Lispro (Humalog) 0 units SC .MODERATE SLIDING SC PRN PRN Reason: Moderate Correctional Scale Last Admin: 09/16/18 16:05 Dose: 6 unit Labetalol HCl (Normodyne) 20 mg SLOW IVP Q4H PRN PRN Reason: Hypertension Loperamide HCl (Imodium) 4 mg PO ONE PRN PRN Reason: Diarrhea/Loose Stools Stop: 09/17/18 16:10 Minoxidil (Minoxidil) 10 mg PO DAILY [facility] Last Admin: 09/17/18 08:13 Dose: 10 mg Ondansetron HCl (Zofran Odt) 4 mg PO Q6H PRN PRN Reason: Nausea/Vomiting Last Admin: 09/17/18 09:35 Dose: 4 mg Ondansetron HCl (Zofran) 4 mg IVP Q6H PRN PRN Reason: Nausea/Vomiting Last Admin: 09/15/18 11:24 Dose: 4 mg Pantoprazole Sodium (Protonix) 40 mg IVP Q12HR [facility] Senna/Docusate Sodium (Senokot S) 2 tab PO BID PRN PRN Reason: Constipation Sodium Chloride (Flush - Normal Saline) 10 ml IVF Q12HR [facility] Last Admin: 09/17/18 08:13 Dose: 10 ml Sodium Chloride (Flush - Normal Saline) 10 ml IVF PRN PRN PRN Reason: Saline Flush Torsemide (Demadex) 10 mg PO DAILY [facility] Last Admin: 09/17/18 09:35 Dose: 10 mg Tramadol HCl (Ultram) 50 mg PO Q6H PRN PRN Reason: Pain
[2018-09-17] MEDS: HumaLOG 300 UNITS/3 ML VIAL SC PRN (11:44)
--- NOTE | 2018-09-17 13:26 | CT ---
CT ABDOMEN AND PELVIS WITHOUT IV CONTRAST: INDICATIONS: History of rectal bleeding and lower abdominal pain. FINDINGS: There is subsegmental atelectasis involving both lower lobes. No renal or ureteral calculus is evident. No hydronephrosis is evident. The gallbladder is contracted. Unopacified pancreas, spleen, and liver are unremarkable appearing. There is a mild amount of retained stool within the colon. There is a normal appendix in the right l ower quadrant. The small bowel is normal appearing. There is a bony hemangioma within the right aspect of L2. No acute osseous abnormality is evident. IMPRESSION: No definite acute abnormality. POS: [facility]
[2018-09-17 19:29] LABS: Hemoglobin 9.2 g/dL (14.0-18.0)
--- NOTE | 2018-09-17 20:06 | PRG ---
DATE OF SERVICE: 09/17/2018 SUBJECTIVE: Mr. Jacobs is seen in followup. He had abdominal CT that was unremarkable today. He has his CPAP at the bedside, but says his mask has worn out and he needs a new mask. I will be happy to contact his provider and write a prescription for new mask if this is acceptable to his durable medical equipment provider. He will continue to use this mask until we can get him a new one. OBJECTIVE: VITAL SIGNS: He is afebrile. Heart rate is 95, respiratory rate is 18, oximetry is 94%, and blood pressure 122/59. LUNGS: Clear. HEART: Regular rhythm. ABDOMEN: Soft, nontender. LABORATORY DATA: Hemoglobin 9.2. His hemoglobin has been stable; it was 10.8 on the . Electrolytes are unremarkable. BUN is 56, creatinine is 5.594. Creatinine was 6.14 yesterday, 5.03 on the . IMPRESSION: 1. Sleep apnea, compliant with therapy, benefiting from these, but he has some worn out equipment, so we will try to get him another mask. 2. Acute on chronic kidney disease. 3. Hypertension that was poorly controlled on admission. 4. Diabetes. 5. Sleep apnea as mentioned above. 6. History of sarcoid with an unremarkable chest x-ray. 7. History of knee and shoulder surgery. I will continue with attempts at managing his blood pressure, which this morning at 7:15 was 167/80. His is in the room. She is extremely concerned about the issues surrounding vertebral artery, which she had been told was occluded. It is actually not occluded. Reviewing the report, there is a stenosis of the right vertebral artery. There is no percutaneous intervention for this, as I explained to the . Gentle adjustment of his blood pressure medicines, avoiding precipitous drops is the only management right now. He did have a brain MRI when he came in, which showed some white matter changes secondary to microvascular disease, but no thrombotic events. I tried to reassure the that this was a small concern at this time, although it is an indication that he needs to manage his diabetes and his blood pressure. He is compliant with his CPAP. I will follow up for a short period until he is stable more to reassure him as I have an established relationship with him. Job ID: [id number]
--- NOTE | 2018-09-17 20:30 | PRG ---
DATE OF SERVICE: 09/17/2018 SUBJECTIVE: The patient is seen and examined, did experience GI bleed today. OBJECTIVE: VITAL SIGNS: Noted with the following vital signs; afebrile temperature 98.8, pulse 91, respiratory rate of 16, O2 saturations are 95% with blood pressure 130/65. HEENT: Unremarkable. Moist oral mucosa. Neck was supple. No conjunctival injection or icterus. CARDIOVASCULAR: Positive sounds were heard. RESPIRATORY SYSTEM: Clear to auscultation. DIGESTIVE SYSTEM: Revealed a benign abdomen. Positive bowel sounds. EXTREMITIES: No peripheral edema. SKIN: No new gross rash. LYMPHATICS: No peripheral lymphadenopathy. LABORATORY INVESTIGATION: Showed a hemoglobin of 9.0. Chemistry showed a creatinine of 5.94, BUN of 56. IMPRESSION: 1. Hypertensive urgency. 2. Advanced chronic kidney disease, stage 5. 3. Anemia of chronic kidney disease but not of acute blood loss. 4. Gastrointestinal bleed. PLAN: 1. We will continue to adjust antihypertensive medications to optimize hemodynamics. We will likely reduce the clonidine for that about 0.1 mg daily and as tolerated by hemodynamics adjust the minoxidil. 2. Renally dose all medications for low GFR. 3. Outpatient Nephrology followup strongly recommended. Job ID: [id number]
[2018-09-17] MEDS: Pantoprazole 40 MG VIAL IVP SCH (21:13)
[2018-09-17] MEDS: Atorvastatin Calcium 40 MG TAB PO SCH (21:13)
[2018-09-17] MEDS ORDERED: Dextrose 50% Abboject 50 ML SYRINGE SLOW IVP PRN ×2 (21:41→21:42)
[2018-09-17] MEDS ORDERED: Dextrose 5% in Water 1,000 ML IV PRN ×2 (21:41→21:42)
--- NOTE | 2018-09-17 22:02 | CON ---
DATE OF CONSULTATION: 09/17/2018 REASON: Rectal bleeding/hematochezia. HISTORY OF PRESENT ILLNESS: Mr. Jacobs is a 48-year-old male, who was admitted to the hospital 4 days ago with hypertensive crisis. He was initially admitted due to exclude any cerebrovascular accident. He also has diabetes and stage 4 chronic kidney disease and sarcoidosis. The patient had rectal bleeding described as large amounts, typically bright to dark blood associated with bowel movements while he was in the commode. He denies any significant abdominal pain or discomfort. There is no nausea or vomiting, although he does have history of chronic episodic hand buffing wheel former nausea and small volume emesis. The patient has not had any further bleeding since. However, according to the , he has had intermittent rectal bleeding for the last 3 to 4 months. Of note, Mr. Jacobs did have an outpatient EGD and colonoscopy on 02/06/2018. His EGD was completely normal. His colonoscopy at that time showed a benign hyperplastic polyp removed from the sigmoid colon in addition to grade 1 internal hemorrhoids. PAST MEDICAL HISTORY: 1. Hypertension. 2. Chronic kidney disease. 3. Diabetes. 4. Sarcoidosis. 5. EGD colonoscopy. 6. Knee and shoulder surgery. ALLERGIES: NONE. MEDICATIONS: At home include: 1. Losartan. 2. Clonidine. 3. Doxazosin. 4. Torsemide. 5. Diltiazem. 6. Atorvastatin. 7. Insulin. 8. Gabapentin. 9. Flexeril. 10. Amlodipine. SOCIAL HISTORY: The patient is . Has no tobacco or alcohol usage. FAMILY HISTORY: Negative for any known GI problem, liver disease, or GI malignancy. REVIEW OF SYSTEMS: 10-point review of systems did not show any other pertinent positives or negatives. PHYSICAL EXAMINATION: VITAL SIGNS: Temperature is 98.8, blood pressure 130/65, pulse of 91. GENERAL: He is alert, no distress. HEENT: Anicteric sclerae. Oropharynx clear. NECK: Supple. CV: Normal S1 and S2. Regular rate and rhythm. CHEST: Shows normal breath sounds. ABDOMEN: Protuberant, but soft. No distention. No tenderness. He has active bowel sounds. RECTAL: Did not show any external hemorrhoids. There is no apparent fissure. Distal exam did not show any palpable mass or lesion. There is no stool in the rectal vault. No blood seen on fingertip. LABORATORY DATA: WBCs 8.8, hemoglobin 9.0, hematocrit 27.7, and platelet count of 177. Electrolytes within normal range. Creatinine 5.94. ASSESSMENT: Rectal bleeding associated with bowel movement earlier this morning. The patient did have a normal colonoscopy in January 2018 with findings of a small sigmoid hyperplastic polyp and grade 1 internal hemorrhoids. Most likely, he had hemorrhoidal bleeding, although ischemic colitis is a possibility but remains less likely. Bleeding does not appear to be significant at the present time as he has not had any further bleeding since over the last 8 hours. RECOMMENDATIONS: 1. Continue observation for any recurrent bleeding. 2. No indication to repeat colonoscopy at this point. 3. We will follow. Job ID: [id number]
[2018-09-17] MEDS: Insulin Regular 300 UNITS/3 ML VIAL SC PRN (22:04)
[2018-09-18 05:29] LABS: #Monocytes 0.5 thou/uL (0.11-0.59); #Neutrophils 4.5 thou/uL (1.40-6.50); %Basophils 0.1 % (0.0-1.0); %Eosinophils 0.4 % (0.0-10.0); %Neutrophils 74.5 % (42.0-75.0); Hemoglobin 8.6 g/dL (14.0-18.0); Mean Corpuscular HGB CONC 32.2 g/dL (32.0-36.0); Mean Corpuscular Hemoglobin 25.3 pg (27.0-31.0); Mean Corpuscular Volume 78.6 fL (78.0-98.0); Mean Platelet Volume 11.9 fL (7.4-10.4); Platelet Count 159 thou/uL (130-400); RBC Distribution Width 14.5 % (11.5-14.5)
[2018-09-18 05:49] LABS: Anion Gap 15 mmol/L (10-20); BUN (Urea Nitrogen) 62 mg/dL (8.9-20.6); Calc. Creatinine Clearance 24 mL/min (70-130); Calcium 8.6 mg/dL (7.8-10.44); Carbon Dioxide 23 mmol/L (22-29); Chloride 107 mmol/L (98-107); Estimated GFR-MDRD 11; Glucose 275 mg/dL (70-105); Potassium 4.6 mmol/L (3.5-5.1); Sodium 140 mmol/L (136-145)
[2018-09-18] MEDS: HumuLIN 70/30 (300 UNITS/3 ML VIAL) SC SCH ×3 (08:32→17:02)
[2018-09-18] MEDS: Aspirin Chewable 81 MG TAB PO SCH (08:33)
[2018-09-18] MEDS: Carvedilol 25 MG TAB PO SCH ×2 (08:33→17:02)
[2018-09-18] MEDS: cloNIDine 0.1 MG TAB PO SCH ×2 (08:33→08:57)
[2018-09-18] MEDS: Minoxidil 10 MG TAB PO SCH (08:34)
[2018-09-18] MEDS: Doxazosin 2 MG TAB PO SCH (08:34)
[2018-09-18] MEDS: Pantoprazole 40 MG VIAL IVP SCH ×2 (08:35→20:19)
[2018-09-18] MEDS: Insulin Regular 300 UNITS/3 ML VIAL SC PRN ×3 (08:36→20:32)
[2018-09-18] MEDS ORDERED: Minoxidil 10 MG TAB PO SCH ×2 (08:48→09:00)
[2018-09-18 10:01] LABS: Iron 45 ug/dL (65-175); Iron Binding Capacity, Total 206 mcg/dL (261-462)
--- NOTE | 2018-09-18 10:03 | PRG ---
DATE OF SERVICE: 09/18/2018 SUBJECTIVE: Mr. Jacobs has no complaints. CPAP mask, he says is leaking because he needs a new mask. OBJECTIVE: VITAL SIGNS: His blood pressure is 173/81, heart rate is 108. He is afebrile. He is 95% on room air. Respiratory rate 16. GENERAL: He is in no distress. LUNGS: Clear. HEART: Regular rhythm. ABDOMEN: Soft. LABORATORY DATA: White count 6.0, hemoglobin 8.6, platelets 159,000. Sodium 140, potassium 4.6, chloride 107, bicarb 23, BUN 62, creatinine 6.5. Intake and outputs record is -755. IMPRESSION: 1. Declining renal function on top of severe chronic kidney disease. 2. Sleep apnea, compliant with therapy, but not adequately treated because of mask malfunctions. I written an order for his medical equipment provider to hopefully bring over a CPAP mask today. 3. Hypertension, still not completely controlled. 4. Obesity, but with over 50-pound weight loss since he got on a diet. 5. Diabetes. 6. Anemia, that is likely mixed with a decreased mean corpuscular volume and an elevated RDW. There may be a component of iron deficiency mixed with chronic disease. He supposedly empirically could have a thalassemia mixed with chronic disease as well. This will continue to be followed. Job ID: [id number]
[2018-09-18] MEDS: Torsemide 10 MG TAB PO SCH (10:05)
[2018-09-18] MEDS ORDERED: Dextrose 50% Abboject 50 ML SYRINGE SLOW IVP PRN (12:45)
[2018-09-18] MEDS ORDERED: Dextrose 5% in Water 1,000 ML IV PRN (12:45)
--- NOTE | 2018-09-18 13:19 | PDOC.PN ---
- Subjective Encounter Start Date: 09/18/18 Encounter Start Time: 13:18 Subjective: feels much better. no more blood in stools.no abd pain -: no CP/SOB/dizziness - Objective Resuscitation Status - Order Detail: 09/14/18 16:09 Resuscitation Status Routine Resuscitation Status: FULL: Full Resuscitation MAR Reviewed: Yes Vital Signs & Weight: Vital Signs (12 hours) Temp Pulse Resp BP BP Pulse Ox 09/18/18 12:02 98.0 F 95 17 132/60 94 L 09/18/18 08:33 173/81 H 09/18/18 08:10 99.2 F 108 H 16 173/81 H 95 09/18/18 03:30 99.3 F 107 H 16 145/65 H 94 L Weight Weight 275 lb 11.2 oz Most Recent Monitor Data Heart Rate from ECG 89 NIBP 126/61 NIBP BP-Mean 82 Respiration from ECG 20 SpO2 96 I&O: 09/17/18 09/18/18 09/19/18 06:59 06:59 06:59 Intake Total 1300 1220 Output Total 1200 1975 Balance 100 -755 Result Diagrams: 09/18/18 05:02 09/18/18 05:02 Additional Labs: Accuchecks 09/18/18 09/17/18 09/17/18 05:18 20:16 16:55 POC Glucose 330 H 224 H 182 H Laboratory Tests 09/14/18 09/15/18 09/17/18 12:56 03:28 06:10 Hgb 10.8 L 9.9 L 9.0 L 09/17/18 09/18/18 19:21 05:02 Hgb 9.2 L 8.6 L Phys Exam - Physical Examination Constitutional: NAD HEENT: PERRLA, moist MMs, sclera anicteric, oral pharynx no lesions Neck: no nodes, no JVD, supple, full ROM Respiratory: no wheezing, no rales, no rhonchi, clear to auscultation bilateral Cardiovascular: RRR, no significant murmur, no rub Gastrointestinal: soft, non-tender, no distention, positive bowel sounds Musculoskeletal: no edema, pulses present Neurological: non-focal, normal sensation, moves all 4 limbs Psychiatric: normal affect, A&O x 3 Skin: no rash Dx/Plan (1) Hematochezia Code(s): K92.1 - MELENA Status: Acute Comment: likley hemorrhoidal bleed. (2) Hypertensive urgency Code(s): I16.0 - HYPERTENSIVE URGENCY Status: Acute Comment: Uncontrolled hypertension, presented with systolics of more than 200, better now.off of Nitro gtt. Restarted on home medsTitrated as per Cards and nephrology (3) CKD (chronic kidney disease) Code(s): N18.9 - CHRONIC KIDNEY DISEASE, UNSPECIFIED Status: Chronic Qualifiers: Chronic kidney disease stage: stage 3 (moderate) Qualified Code(s): N18.3 - Chronic kidney disease, stage 3 (moderate) (4) Vertebral artery stenosis Code(s): I65.09 - OCCLUSION AND STENOSIS OF UNSPECIFIED VERTEBRAL ARTERY Status: Chronic Comment: cont ASA,statin.No CVA on MRI (5) Dyslipidemia Code(s): E78.5 - HYPERLIPIDEMIA, UNSPECIFIED Status: Chronic Comment: continue statin (6) Obesity (BMI 30-39.9) Code(s): E66.9 - OBESITY, UNSPECIFIED Status: Chronic (7) Sarcoidosis Code(s): D86.9 - SARCOIDOSIS, UNSPECIFIED Status: Chronic Comment: - Plan PT/OT, out of bed/ambulate, DVT proph w/SCDs discussed w Nephrology.meds adjusted as BP still high -: H/H lower but seems chr. no more actibe hematochezia -: suspect anemia of CKD.start epogen -: appreciate GI recs.no intervention /endoscopy needed at this time -: DC home if BP better controlled. monitor * . Review of Systems - Review of Systems Constitutional: negative: fever, chills, sweats, weakness, malaise, other ENT: negative: Ear Pain, Ear Discharge, Nose Pain, Nose Discharge, Nose Congestion, Mouth Pain, Mouth Swelling, Throat Pain, Throat Swelling, Other Respiratory: negative: Cough, Dry, Shortness of Breath, Hemoptysis, SOB with Excertion, Pleuritic Pain, Sputum, Wheezing Cardiovascular: negative: chest pain, palpitations, orthopnea, paroxysmal nocturnal dyspnea, edema, light headedness, other Gastrointestinal: negative: Nausea, Vomiting, Abdominal Pain, Diarrhea, Constipation, Melena, Hematochezia, Other Genitourinary: negative: Dysuria, Frequency, Incontinence, Hematuria, Retention , Other Neurological: negative: Weakness, Numbness, Incoordination, Change in Speech, Confusion, Seizures, Other - Medications/Allergies Allergies/Adverse Reactions: Allergies Allergy/AdvReac Type Severity Reaction Status Date / Time No Known Allergies Allergy Verified 07/24/17 09:57 Medications: Current Medications Acetaminophen (Tylenol) 650 mg PO Q4H PRN PRN Reason: Headache/Fever/Mild Pain (1-3) Last Admin: 09/15/18 11:24 Dose: 650 mg Hydrocodone Bitart/Acetaminophen ([place] 5/325) 1 tab PO Q4H PRN PRN Reason: Moderate Pain (4-6) Last Admin: 09/16/18 08:18 Dose: 1 tab Aspirin (Aspirin Chewable) 81 mg PO DAILY [facility] Last Admin: 09/18/18 08:33 Dose: 81 mg Atorvastatin Calcium (Lipitor) 40 mg PO HS [facility] Last Admin: 09/17/18 21:13 Dose: 40 mg Carvedilol (Coreg) 25 mg PO BID-[facility] Last Admin: 09/18/18 08:33 Dose: 25 mg Clonidine (Catapres) 0.1 mg PO DAILY [facility] Last Admin: 09/18/18 08:57 Dose: Not Given Dextrose/Water (Dextrose 50%) 25 gm SLOW IVP PRN PRN PRN Reason: Hypoglycemia Doxazosin Mesylate (Cardura) 8 mg PO DAILY [facility] Last Admin: 09/18/18 08:34 Dose: 8 mg Epoetin Jose David (Procrit) 10,000 units SC Q7D [facility] Glucagon (Glucagon) 1 mg IM PRN PRN PRN Reason: Hypoglycemia Guaifenesin/Dextromethorphan (Robitussin Dm) 15 ml PO Q4H PRN PRN Reason: Cough Dextrose/Water (D5w) 1,000 mls @ 0 mls/hr IV .Q0M PRN PRN Reason: Hypoglycemia Insulin Human Isoph/Insulin Regular (Humulin 70/30) 30 units SC [facility] Insulin Human Lispro (Humalog) 0 units SC .AGGRESSIVE SLIDING PRN PRN Reason: Aggressive Correctional Scale Insulin Human Regular (Humulin R) 0 units SC .BEDTIME SLIDING SC PRN PRN Reason: Bedtime Correctional Scale Last Admin: 09/17/18 22:04 Dose: 2 unit Labetalol HCl (Normodyne) 20 mg SLOW IVP Q4H PRN PRN Reason: Hypertension Minoxidil (Minoxidil) 20 mg PO DAILY [facility] Ondansetron HCl (Zofran Odt) 4 mg PO Q6H PRN PRN Reason: Nausea/Vomiting Last Admin: 09/17/18 09:35 Dose: 4 mg Ondansetron HCl (Zofran) 4 mg IVP Q6H PRN PRN Reason: Nausea/Vomiting Last Admin: 09/15/18 11:24 Dose: 4 mg Pantoprazole Sodium (Protonix) 40 mg IVP Q12HR [facility] Last Admin: 09/18/18 08:35 Dose: 40 mg Senna/Docusate Sodium (Senokot S) 2 tab PO BID PRN PRN Reason: Constipation Sodium Chloride (Flush - Normal Saline) 10 ml IVF Q12HR [facility] Last Admin: 09/18/18 08:35 Dose: 10 ml Sodium Chloride (Flush - Normal Saline) 10 ml IVF PRN PRN PRN Reason: Saline Flush Torsemide (Demadex) 10 mg PO DAILY [facility] Last Admin: 09/18/18 10:05 Dose: 10 mg Tramadol HCl (Ultram) 50 mg PO Q6H PRN PRN Reason: Pain
[2018-09-18] MEDS ORDERED: Epoetin (ESRD) 10,000 UNITS/ML VIAL SC SCH (14:00)
--- NOTE | 2018-09-18 16:17 | PRG ---
DATE OF SERVICE: 09/18/2018 SUBJECTIVE: Mr. Jacbos is resting comfortably in his room. He and his nurse notes he has had no further bleeding since yesterday. OBJECTIVE: VITAL SIGNS: Pulse is 95 to 107, temperature is 98, blood pressure is 132/60. GENERAL: He is alert and oriented to person, place, and time and sitting in bed comfortable. ABDOMEN: Protuberant abdomen. No masses. LABORATORY DATA: Hemoglobin is 8.6, it was 9.2 yesterday, it was between 8.5 and 11 since January 2018. Chronic microcytosis. His iron was 45. His TIBC was 206 and saturation was 22 with a ferritin of 201, BUN 60, creatinine 6.5. ASSESSMENT: 1. Rectal bleeding bright red, resolved. 2. CAT scan of the abdomen and pelvis without IV contrast for lower abdominal pain and rectal bleeding yesterday, which was normal. 3. Recent colonoscopy in the outpatient setting along with upper endoscopy in January 2018, he had some internal hemorrhoids. RECOMMENDATIONS: I suspect this is a rectal bleeding from hemorrhoids. We would follow H and H and treat topically. If he has continued bleeding, we would consider flexible sigmoidoscopy and then surgical repair. Job ID: [id number]
--- NOTE | 2018-09-18 16:40 | PRG ---
DATE OF SERVICE: 09/18/2018 SUBJECTIVE: The patient is seen and examined, seems to be doing okay complained of headache. OBJECTIVE: VITAL SIGNS: The patient noted with the following vital signs; afebrile, temperature 99.3, pulse 107, respiratory rate of 16, O2 saturations are 95%, with blood pressure 173/81. HEENT: Unremarkable. CARDIOVASCULAR: First and second heart sounds were heard. RESPIRATORY: Clear to auscultation. DIGESTIVE: Revealed a benign abdomen with positive bowel sounds. EXTREMITIES: No peripheral edema. SKIN: No new gross rash. LYMPHATICS: No peripheral lymphadenopathy. LABORATORY INVESTIGATION: Creatinine of 6.5 with BUN of 62 . IMPRESSION: 1. Hypertension, suboptimally controlled. 2. Advanced chronic kidney disease, stage 5. 3. Anemia of chronic kidney disease, likely. PLAN: 1. Adjust the patient's antihypertensive medications. We will increase the minoxidil and continue to wean this patient off clonidine. 2. Iron studies. If the iron studies are okay, we will go ahead and initiate erythropoiesis-stimulating agent. 3. Close outpatient Nephrology followup status post discharge strongly recommend. Job ID: [id number]
[2018-09-18] MEDS: HumaLOG 300 UNITS/3 ML VIAL SC PRN (17:02)
[2018-09-18] MEDS: Hydrocortisone Acetate 25 MG Suppository PR SCH (20:19)
[2018-09-18] MEDS: Atorvastatin Calcium 40 MG TAB PO SCH (20:19)
[2018-09-19 05:54] LABS: #Basophils 0.1 thou/uL (0.0-0.2); #Lymphocytes 1.3 thou/uL (1.20-3.40); #Monocytes 0.6 thou/uL (0.11-0.59); #Neutrophils 4.1 thou/uL (1.40-6.50); %Eosinophils 0.7 % (0.0-10.0); %Lymphocytes 21.6 % (21.0-51.0); %Monocytes 9.4 % (0.0-10.0); %Neutrophils 67.3 % (42.0-75.0); Hemoglobin 8.7 g/dL (14.0-18.0); Mean Corpuscular HGB CONC 32.5 g/dL (32.0-36.0); Mean Corpuscular Hemoglobin 25.6 pg (27.0-31.0); Mean Corpuscular Volume 78.8 fL (78.0-98.0); Mean Platelet Volume 11.3 fL (7.4-10.4); Platelet Count 158 thou/uL (130-400); RBC Distribution Width 14.3 % (11.5-14.5); White Blood Cell (WBC) Count 6.1 thou/uL (4.8-10.8)
[2018-09-19 06:08] LABS: Anion Gap 15 mmol/L (10-20); BUN (Urea Nitrogen) 61 mg/dL (8.9-20.6); Calc. Creatinine Clearance 25 mL/min (70-130); Carbon Dioxide 23 mmol/L (22-29); Chloride 108 mmol/L (98-107); Estimated GFR-MDRD 12; Glucose 138 mg/dL (70-105); Potassium 4.2 mmol/L (3.5-5.1); Sodium 142 mmol/L (136-145)
[2018-09-19] MEDS ORDERED: IRON SUCROSE COMPLEX 100 MG/5 ML SLOW IVP SCH (09:00)
[2018-09-19] MEDS ORDERED: Epoetin (ESRD) 20,000 UNITS/ML SC SCH (09:00)
[2018-09-19] MEDS: Pantoprazole 40 MG VIAL IVP SCH (09:34)
[2018-09-19] MEDS: Doxazosin 2 MG TAB PO SCH (09:34)
[2018-09-19] MEDS: Torsemide 10 MG TAB PO SCH (09:34)
[2018-09-19] MEDS: Minoxidil 10 MG TAB PO SCH (09:35)
[2018-09-19] MEDS: cloNIDine 0.1 MG TAB PO SCH (09:35)
[2018-09-19] MEDS: Aspirin Chewable 81 MG TAB PO SCH (09:35)
[2018-09-19] MEDS: Hydrocortisone Acetate 25 MG Suppository PR SCH ×2 (09:36→21:35)
[2018-09-19] MEDS: Carvedilol 25 MG TAB PO SCH ×2 (09:36→16:55)
[2018-09-19] MEDS: HumuLIN 70/30 (300 UNITS/3 ML VIAL) SC SCH ×3 (09:39→17:07)
[2018-09-19] MEDS: HumaLOG 300 UNITS/3 ML VIAL SC PRN ×3 (09:40→17:10)
[2018-09-19] MEDS ORDERED: Iron, Sodium Ferric Gluconate 250 MG in Sodium Chloride 0.9% 100 ML IVPB SCH (10:00)
--- NOTE | 2018-09-19 11:21 | PQF ---
CLINICAL DOCUMENTATION IMPROVEMENT CLARIFICATION FORM: ICD-10 Updated PLEASE DO AN ADDENDUM TO THE PROGRESS NOTE WITH ANY DOCUMENTATION UPDATES OR ADDITIONS AND CARRY THROUGH TO DC SUMMARY. THANK YOU. DATE: 09/19/2018 ATTN: Dr. Jeronimo Please exercise your independent, professional judgment in responding to the clarification form. Clinical indicators are provided on the bottom of this form for your review Please check appropriate box(s): Conflicting documentation was noted in the Medical Record, please clarify if patient is being treated/monitored for: [ X ] Advanced chronic kidney disease, stage 5 [ ] Chronic kidney disease, stage 3 [ ] Other diagnosis [ ] Unable to determine In addition, please specify: Present on Admission (POA): [ X ] Yes [ ] No [ ] Unable to determine For continuity of documentation, please document condition throughout progress notes and discharge summary. Thank You. CLINICAL INDICATORS - SIGNS / SYMPTOMS/ LABS Nephrology pn 09/17-09/18: Advanced chronic kidney disease, stage 5 09/18: Creatinine of 6.5 PN 09/17-09/18: CKD stage 3 RISKS: H&P 09/15: Uncontrolled hypertension. Diabetes PN 09/17: CKD. Vertebral artery stenosis. Obesity. Sarcoidosis. TREATMENT: Nephrology Consult Thank you, Jazmine (This form is maintained as a part of the permanent medical record) 2014 [employer]. All Rights Reserved Jazmine Flores RN, BSN [email or web address] Office: [phone] [id number]
--- NOTE | 2018-09-19 11:54 | PRG ---
DATE OF SERVICE: 09/19/2018 SUBJECTIVE: Jean-Pierre Jacobs did not get a new CPAP mask. I have contacted Respiratory Therapy to see if we can provide him with one. He says he could hardly wear a CPAP last night because it will not seal. OBJECTIVE: VITAL SIGNS: He is afebrile. Heart rate 103, blood pressure 146/70, respiratory rate is 18. LUNGS: Clear. HEART: Regular rhythm. ABDOMEN: Soft. LABORATORY DATA: White count 6.1, hemoglobin 8.7, platelets 158. Creatinine today is 6.15, it was 6.5 yesterday, so hopefully his renal function will improve. IMPRESSION: Sleep apnea. He is attempting to be compliant, but his equipment needs replacing. He failed to get an started giving him problems. Hopefully, we can provide him with one from our Respiratory Therapy Department. Job ID: [id number]
--- NOTE | 2018-09-19 12:56 | PDOC.PN ---
- Subjective Encounter Start Date: 09/19/18 Encounter Start Time: 12:54 Subjective: feels well.had 2 episodes of hematochezia last night & 1 this morning -: no abd pain.mild nausea - Objective Resuscitation Status - Order Detail: 09/14/18 16:09 Resuscitation Status Routine Resuscitation Status: FULL: Full Resuscitation MAR Reviewed: Yes Vital Signs & Weight: Vital Signs (12 hours) Temp Pulse Resp BP BP BP Pulse Ox 09/19/18 12:00 97.6 F 94 16 162/78 H 09/19/18 09:35 146/70 H 09/19/18 08:00 98.4 F 103 H 18 146/70 H 93 L 09/19/18 03:51 99.7 F H 100 18 160/78 H 96 Weight Weight 279 lb 9 oz Most Recent Monitor Data Heart Rate from ECG 89 NIBP 126/61 NIBP BP-Mean 82 Respiration from ECG 20 SpO2 96 I&O: 09/18/18 09/19/18 09/20/18 06:59 06:59 06:59 Intake Total 1220 2160 Output Total 1975 1625 700 Balance -755 535 -700 Result Diagrams: 09/19/18 05:32 09/19/18 05:32 Additional Labs: Accuchecks 09/19/18 09/19/18 09/18/18 10:45 05:29 20:21 POC Glucose 297 H 155 H 300 H 09/18/18 09/18/18 16:41 11:29 POC Glucose 238 H 354 H Laboratory Tests 09/14/18 19:01 Vitamin B12 350 Folate 8.00 Phys Exam - Physical Examination Constitutional: NAD HEENT: PERRLA, moist MMs, sclera anicteric, oral pharynx no lesions, 2+ tonsils Neck: no nodes, no JVD, supple, full ROM Respiratory: no wheezing, no rales, no rhonchi, clear to auscultation bilateral Cardiovascular: RRR, no significant murmur, no rub Gastrointestinal: soft, non-tender, no distention, positive bowel sounds Musculoskeletal: no edema, pulses present Neurological: non-focal, normal sensation, moves all 4 limbs Psychiatric: normal affect, A&O x 3 Dx/Plan (1) Hematochezia Code(s): K92.1 - MELENA Status: Acute Comment: likley hemorrhoidal bleed. started on anusol. (2) Hypertensive urgency Code(s): I16.0 - HYPERTENSIVE URGENCY Status: Acute Comment: Uncontrolled hypertension, presented with systolics of more than 200, better now.off of Nitro gtt. Restarted on home medsTitrated as per Cards and nephrology (3) CKD (chronic kidney disease) Code(s): N18.9 - CHRONIC KIDNEY DISEASE, UNSPECIFIED Status: Chronic Qualifiers: Chronic kidney disease stage: stage 5, not on chronic dialysis Qualified Code(s): N18.5 - Chronic kidney disease, stage 5 (4) Vertebral artery stenosis Code(s): I65.09 - OCCLUSION AND STENOSIS OF UNSPECIFIED VERTEBRAL ARTERY Status: Chronic Comment: cont ASA,statin.No CVA on MRI (5) Dyslipidemia Code(s): E78.5 - HYPERLIPIDEMIA, UNSPECIFIED Status: Chronic Comment: continue statin (6) Obesity (BMI 30-39.9) Code(s): E66.9 - OBESITY, UNSPECIFIED Status: Chronic (7) Sarcoidosis Code(s): D86.9 - SARCOIDOSIS, UNSPECIFIED Status: Chronic Comment: - Plan PT/OT, incentive spirometry, out of bed/ambulate, DVT proph w/SCDs BP better controlled.renal Fx stable.will f/u w his Transportation Broker as an OP -: cont PPI.Cont anusol.H/H slightly lower but suspect chr anemia from CKD -: Epogen yesterday.will give IV Iron as levels low -: anisa OROZCO tomrrow if no further GI w/u needed and BP stable -: am labs * . Review of Systems - Review of Systems Constitutional: negative: fever, chills, sweats, weakness, malaise, other ENT: negative: Ear Pain, Ear Discharge, Nose Pain, Nose Discharge, Nose Congestion, Mouth Pain, Mouth Swelling, Throat Pain, Throat Swelling, Other Respiratory: negative: Cough, Dry, Shortness of Breath, Hemoptysis, SOB with Excertion, Pleuritic Pain, Sputum, Wheezing Cardiovascular: negative: chest pain, palpitations, orthopnea, paroxysmal nocturnal dyspnea, edema, light headedness, other Gastrointestinal: Nausea, Hematochezia. negative: Vomiting, Abdominal Pain, Diarrhea, Constipation, Melena, Other Genitourinary: negative: Dysuria, Frequency, Incontinence, Hematuria, Retention , Other Musculoskeletal: negative: Neck Pain, Shoulder Pain, Arm Pain, Back Pain, Hand Pain, Leg Pain, Foot Pain, Other Neurological: negative: Weakness, Numbness, Incoordination, Change in Speech, Confusion, Seizures, Other - Medications/Allergies Allergies/Adverse Reactions: Allergies Allergy/AdvReac Type Severity Reaction Status Date / Time No Known Allergies Allergy Verified 07/24/17 09:57 Medications: Current Medications Acetaminophen (Tylenol) 650 mg PO Q4H PRN PRN Reason: Headache/Fever/Mild Pain (1-3) Last Admin: 09/15/18 11:24 Dose: 650 mg Hydrocodone Bitart/Acetaminophen ([place] 5/325) 1 tab PO Q4H PRN PRN Reason: Moderate Pain (4-6) Last Admin: 09/16/18 08:18 Dose: 1 tab Aspirin (Aspirin Chewable) 81 mg PO DAILY [facility] Last Admin: 09/19/18 09:35 Dose: 81 mg Atorvastatin Calcium (Lipitor) 40 mg PO HS [facility] Last Admin: 09/18/18 20:19 Dose: 40 mg Carvedilol (Coreg) 25 mg PO BID-[facility] Last Admin: 09/19/18 09:36 Dose: 25 mg Clonidine (Catapres) 0.1 mg PO DAILY [facility] Last Admin: 09/19/18 09:35 Dose: 0.1 mg Dextrose/Water (Dextrose 50%) 25 gm SLOW IVP PRN PRN PRN Reason: Hypoglycemia Doxazosin Mesylate (Cardura) 8 mg PO DAILY [facility] Last Admin: 09/19/18 09:34 Dose: 8 mg Epoetin Jose David (Procrit) 10,000 units SC Q7D [facility] Last Admin: 09/18/18 13:55 Dose: 10,000 units Glucagon (Glucagon) 1 mg IM PRN PRN PRN Reason: Hypoglycemia Guaifenesin/Dextromethorphan (Robitussin Dm) 15 ml PO Q4H PRN PRN Reason: Cough Hydrocortisone Acetate (Anusol-Hc) 25 mg CO BID [facility] Last Admin: 09/19/18 09:36 Dose: 25 mg Dextrose/Water (D5w) 1,000 mls @ 0 mls/hr IV .Q0M PRN PRN Reason: Hypoglycemia Insulin Human Isoph/Insulin Regular (Humulin 70/30) 30 units SC [facility] Last Admin: 09/19/18 12:41 Dose: 30 unit Insulin Human Lispro (Humalog) 0 units SC .AGGRESSIVE SLIDING PRN PRN Reason: Aggressive Correctional Scale Last Admin: 09/19/18 12:42 Dose: 9 unit Insulin Human Regular (Humulin R) 0 units SC .BEDTIME SLIDING SC PRN PRN Reason: Bedtime Correctional Scale Last Admin: 09/18/18 20:32 Dose: 3 unit Labetalol HCl (Normodyne) 20 mg SLOW IVP Q4H PRN PRN Reason: Hypertension Minoxidil (Minoxidil) 20 mg PO DAILY [facility] Last Admin: 09/19/18 09:35 Dose: 20 mg Ondansetron HCl (Zofran Odt) 4 mg PO Q6H PRN PRN Reason: Nausea/Vomiting Last Admin: 09/17/18 09:35 Dose: 4 mg Ondansetron HCl (Zofran) 4 mg IVP Q6H PRN PRN Reason: Nausea/Vomiting Last Admin: 09/15/18 11:24 Dose: 4 mg Pantoprazole Sodium (Protonix) 40 mg PO DAILY [facility] Polyethylene Glycol/Electrolytes (Golytely) 4,000 ml PO 1500 [facility] Stop: 09/19/18 23:59 Senna/Docusate Sodium (Senokot S) 2 tab PO BID PRN PRN Reason: Constipation Sodium Chloride (Flush - Normal Saline) 10 ml IVF Q12HR [facility] Last Admin: 09/19/18 09:34 Dose: 10 ml Sodium Chloride (Flush - Normal Saline) 10 ml IVF PRN PRN PRN Reason: Saline Flush Sodium Chloride (Flush - Normal Saline) 10 ml IVF PRN PRN PRN Reason: Saline Flush Torsemide (Demadex) 10 mg PO DAILY [facility] Last Admin: 09/19/18 09:34 Dose: 10 mg Tramadol HCl (Ultram) 50 mg PO Q6H PRN PRN Reason: Pain
[2018-09-19] MEDS ORDERED: GoLYTELY 4,000 ml Bottle PO SCH (15:00)
[2018-09-19] MEDS: Atorvastatin Calcium 40 MG TAB PO SCH (21:35)
[2018-09-20 06:33] LABS: #Eosinphils 0.1 thou/uL (0.0-0.7); #Lymphocytes 1.2 thou/uL (1.20-3.40); #Monocytes 0.6 thou/uL (0.11-0.59); #Neutrophils 5.2 thou/uL (1.40-6.50); %Basophils 0.5 % (0.0-1.0); %Eosinophils 0.9 % (0.0-10.0); %Lymphocytes 17.1 % (21.0-51.0); %Monocytes 8.4 % (0.0-10.0); %Neutrophils 73.1 % (42.0-75.0); Hemoglobin 8.8 g/dL (14.0-18.0); Mean Corpuscular HGB CONC 31.9 g/dL (32.0-36.0); Mean Corpuscular Volume 78.3 fL (78.0-98.0); Mean Platelet Volume 11.7 fL (7.4-10.4); Platelet Count 178 thou/uL (130-400); RBC Distribution Width 14.3 % (11.5-14.5); Red Blood Cell (RBC) Count 3.52 mill/uL (4.70-6.10); White Blood Cell (WBC) Count 7.1 thou/uL (4.8-10.8)
[2018-09-20 06:52] VITALS: BMI 38.9
[2018-09-20 06:53] LABS: Anion Gap 14 mmol/L (10-20); BUN (Urea Nitrogen) 53 mg/dL (8.9-20.6); Calc. Creatinine Clearance 28 mL/min (70-130); Calcium 9.1 mg/dL (7.8-10.44); Carbon Dioxide 27 mmol/L (22-29); Chloride 108 mmol/L (98-107); Estimated GFR-MDRD 13; Glucose 99 mg/dL (70-105); Sodium 145 mmol/L (136-145)
[2018-09-20] MEDS: HumuLIN 70/30 (300 UNITS/3 ML VIAL) SC SCH ×2 (07:30→12:32)
[2018-09-20] MEDS: Carvedilol 25 MG TAB PO SCH ×2 (08:00→15:35)
[2018-09-20] MEDS: Hydrocortisone Acetate 25 MG Suppository PR SCH (09:00)
[2018-09-20] MEDS: Doxazosin 2 MG TAB PO SCH ×2 (09:00→15:34)
[2018-09-20] MEDS: cloNIDine 0.1 MG TAB PO SCH ×2 (09:00→15:33)
[2018-09-20] MEDS: Torsemide 10 MG TAB PO SCH (09:00)
[2018-09-20] MEDS: Minoxidil 10 MG TAB PO SCH ×2 (09:00→15:32)
[2018-09-20] MEDS: Aspirin Chewable 81 MG TAB PO SCH ×2 (09:00→15:31)
[2018-09-20] MEDS ORDERED: HYDROmorphone 2 MG/ML VIAL SLOW IVP PRN (13:07)
[2018-09-20] MEDS ORDERED: Promethazine HCl 25 MG/ML VIAL IM PRN (13:07)
[2018-09-20] MEDS ORDERED: Meperidine HCl/PF 25 MG/ML VIAL SLOW IVP PRN (13:07)
[2018-09-20] MEDS ORDERED: Promethazine HCl 25 MG/ML VIAL SLOW IVP PRN (13:07)
[2018-09-20] MEDS ORDERED: Ondansetron HCl/PF 4 MG/2 ML Vial IVP PRN (13:07)
[2018-09-20] MEDS ORDERED: Ketorolac Tromethamine 30 MG/ML VIAL IVP PRN (13:07)
[2018-09-20] MEDS ORDERED: Lidocaine 1% PF 5 ML VIAL ONE (13:43)
[2018-09-20] MEDS ORDERED: PROPOFOL 200 MG/20 ML VIAL ONE (13:43)
[2018-09-20 13:47] VITALS: TEMP 98.9
--- NOTE | 2018-09-20 15:14 | PDOC.PN ---
- Subjective Encounter Start Date: 09/20/18 Encounter Start Time: 15:12 Subjective: s/p colonoscopy.feels well. family at bedside -: 2 small bloody BMs last night -: Internal hemorrhoids in Scope - Objective Resuscitation Status - Order Detail: 09/14/18 16:09 Resuscitation Status Routine Resuscitation Status: FULL: Full Resuscitation MAR Reviewed: Yes Vital Signs & Weight: Vital Signs (12 hours) Temp Pulse Resp BP BP Pulse Ox 09/20/18 13:49 104 H 165/78 H 09/20/18 13:47 20 95 09/20/18 13:44 98.9 F 105 H 164/76 H 95 09/20/18 08:11 100 09/20/18 07:47 173/79 H 93 L 09/20/18 07:43 98.6 F 103 H 16 180/85 H 91 L 09/20/18 05:00 162/76 H 09/20/18 04:00 98.1 F 92 20 172/80 H 100 Weight Weight 279 lb 9.6 oz Most Recent Monitor Data Heart Rate from ECG 89 NIBP 126/61 NIBP BP-Mean 82 Respiration from ECG 20 SpO2 96 I&O: 09/19/18 09/20/18 09/21/18 06:59 06:59 06:59 Intake Total 2160 1760 Output Total 1625 1950 Balance 535 -190 Result Diagrams: 09/20/18 05:35 09/20/18 05:35 Additional Labs: Accuchecks 09/20/18 09/20/18 09/19/18 10:38 05:49 23:44 POC Glucose 185 H 118 H 129 H 09/19/18 09/19/18 09/19/18 21:21 20:29 17:01 POC Glucose 80 95 193 H Phys Exam - Physical Examination Constitutional: NAD HEENT: PERRLA, moist MMs, sclera anicteric, oral pharynx no lesions Neck: no nodes, no JVD, supple, full ROM Respiratory: no wheezing, no rales, no rhonchi, clear to auscultation bilateral Cardiovascular: RRR, no significant murmur, no rub Gastrointestinal: soft, non-tender, no distention, positive bowel sounds Musculoskeletal: no edema, pulses present Neurological: non-focal, normal sensation, moves all 4 limbs Psychiatric: normal affect, A&O x 3 Skin: no rash Dx/Plan (1) Hematochezia Code(s): K92.1 - MELENA Status: Acute Comment: likley hemorrhoidal bleed. started on anusol.s/p colonoscopy today.Internal hemorrhoids only (2) Hypertensive urgency Code(s): I16.0 - HYPERTENSIVE URGENCY Status: Acute Comment: Uncontrolled hypertension, presented with systolics of more than 200, better now.off of Nitro gtt. Restarted on home medsTitrated as per Cards and nephrology (3) CKD (chronic kidney disease) Code(s): N18.9 - CHRONIC KIDNEY DISEASE, UNSPECIFIED Status: Chronic Qualifiers: Chronic kidney disease stage: stage 5, not on chronic dialysis Qualified Code(s): N18.5 - Chronic kidney disease, stage 5 (4) Vertebral artery stenosis Code(s): I65.09 - OCCLUSION AND STENOSIS OF UNSPECIFIED VERTEBRAL ARTERY Status: Chronic Comment: cont ASA,statin.No CVA on MRI (5) Dyslipidemia Code(s): E78.5 - HYPERLIPIDEMIA, UNSPECIFIED Status: Chronic Comment: continue statin (6) Obesity (BMI 30-39.9) Code(s): E66.9 - OBESITY, UNSPECIFIED Status: Chronic (7) Sarcoidosis Code(s): D86.9 - SARCOIDOSIS, UNSPECIFIED Status: Chronic Comment: - Plan plan discussed w/ family Discussed w GI. no specific abnormality except int hemorrhoids this time -: cont anusol -: H/h stable. DC home -: pt will f/u PCP for OP GS referral as needed.S&W pt. -: DC meds reconciled. * . Review of Systems - Review of Systems Constitutional: negative: fever, chills, sweats, weakness, malaise, other ENT: negative: Ear Pain, Ear Discharge, Nose Pain, Nose Discharge, Nose Congestion, Mouth Pain, Mouth Swelling, Throat Pain, Throat Swelling, Other Respiratory: negative: Cough, Dry, Shortness of Breath, Hemoptysis, SOB with Excertion, Pleuritic Pain, Sputum, Wheezing Cardiovascular: negative: chest pain, palpitations, orthopnea, paroxysmal nocturnal dyspnea, edema, light headedness, other Gastrointestinal: negative: Nausea, Vomiting, Abdominal Pain, Diarrhea, Constipation, Melena, Hematochezia, Other Genitourinary: negative: Dysuria, Frequency, Incontinence, Hematuria, Retention , Other Musculoskeletal: negative: Neck Pain, Shoulder Pain, Arm Pain, Back Pain, Hand Pain, Leg Pain, Foot Pain, Other Neurological: negative: Weakness, Numbness, Incoordination, Change in Speech, Confusion, Seizures, Other - Medications/Allergies Allergies/Adverse Reactions: Allergies Allergy/AdvReac Type Severity Reaction Status Date / Time No Known Allergies Allergy Verified 07/24/17 09:57 Medications: Current Medications Acetaminophen (Tylenol) 650 mg PO Q4H PRN PRN Reason: Headache/Fever/Mild Pain (1-3) Last Admin: 09/15/18 11:24 Dose: 650 mg Hydrocodone Bitart/Acetaminophen ([place] 5/325) 1 tab PO Q4H PRN PRN Reason: Moderate Pain (4-6) Last Admin: 09/16/18 08:18 Dose: 1 tab Aspirin (Aspirin Chewable) 81 mg PO DAILY [facility] Last Admin: 09/20/18 09:00 Dose: Not Given Atorvastatin Calcium (Lipitor) 40 mg PO [facility] Last Admin: 09/19/18 21:35 Dose: 40 mg Carvedilol (Coreg) 25 mg PO BID-[facility] Last Admin: 09/20/18 08:00 Dose: Not Given Clonidine (Catapres) 0.1 mg PO DAILY [facility] Last Admin: 09/20/18 09:00 Dose: Not Given Dextrose/Water (Dextrose 50%) 25 gm SLOW IVP PRN PRN PRN Reason: Hypoglycemia Docusate Sodium (Colace) 100 mg PO DAILY [facility] Doxazosin Mesylate (Cardura) 8 mg PO DAILY [facility] Last Admin: 09/20/18 09:00 Dose: Not Given Epoetin Jose David (Procrit) 10,000 units SC Q7D [facility] Last Admin: 09/18/18 13:55 Dose: 10,000 units Fentanyl (Pacu-Sublimaze) 50 mcg SLOW IVP Q10MIN PRN PRN Reason: Moderate to Severe Pain (6-10) Stop: 09/20/18 16:07 Glucagon (Glucagon) 1 mg IM PRN PRN PRN Reason: Hypoglycemia Guaifenesin/Dextromethorphan (Robitussin Dm) 15 ml PO Q4H PRN PRN Reason: Cough Hydrocortisone Acetate (Anusol-Hc) 25 mg MD BID [facility] Last Admin: 09/20/18 09:00 Dose: Not Given Hydromorphone HCl (Pacu-Dilaudid) 0.5 mg SLOW IVP Q10MIN PRN PRN Reason: Moderate to Severe Pain (6-10) Stop: 09/20/18 16:07 Dextrose/Water (D5w) 1,000 mls @ 0 mls/hr IV .Q0M PRN PRN Reason: Hypoglycemia Insulin Human Isoph/Insulin Regular (Humulin 70/30) 30 units SC [facility] Last Admin: 09/20/18 12:32 Dose: Not Given Insulin Human Lispro (Humalog) 0 units SC .AGGRESSIVE SLIDING PRN PRN Reason: Aggressive Correctional Scale Last Admin: 09/19/18 17:10 Dose: 3 unit Insulin Human Regular (Humulin R) 0 units SC .BEDTIME SLIDING SC PRN PRN Reason: Bedtime Correctional Scale Last Admin: 09/18/18 20:32 Dose: 3 unit Ketorolac Tromethamine (Pacu-Toradol) 30 mg IVP ONE PRN PRN Reason: Moderate Pain (4-6) Stop: 09/20/18 16:07 Labetalol HCl (Normodyne) 20 mg SLOW IVP Q4H PRN PRN Reason: Hypertension Meperidine HCl (Pacu-Demerol) 12.5 mg SLOW IVP ONE PRN PRN Reason: Shivering Stop: 09/20/18 16:07 Minoxidil (Minoxidil) 20 mg PO DAILY [facility] Last Admin: 09/20/18 09:00 Dose: Not Given Ondansetron HCl (Zofran Odt) 4 mg PO Q6H PRN PRN Reason: Nausea/Vomiting Last Admin: 09/17/18 09:35 Dose: 4 mg Ondansetron HCl (Zofran) 4 mg IVP Q6H PRN PRN Reason: Nausea/Vomiting Last Admin: 09/15/18 11:24 Dose: 4 mg Ondansetron HCl (Pacu-Zofran) 4 mg IVP ONE PRN PRN Reason: Nausea/Vomiting Stop: 09/20/18 16:07 Pantoprazole Sodium (Protonix) 40 mg PO DAILY [facility] Last Admin: 09/20/18 09:00 Dose: Not Given Promethazine HCl (Pacu-Phenergan) 6.25 mg SLOW IVP ONE PRN PRN Reason: Nausea/Vomiting Stop: 09/20/18 16:07 Promethazine HCl (Pacu-Phenergan) 6.25 mg IM ONE PRN PRN Reason: Nausea/Vomiting Stop: 09/20/18 16:07 Senna/Docusate Sodium (Senokot S) 2 tab PO BID PRN PRN Reason: Constipation Sodium Chloride (Flush - Normal Saline) 10 ml IVF Q12HR [facility] Last Admin: 09/20/18 12:33 Dose: Not Given Sodium Chloride (Flush - Normal Saline) 10 ml IVF PRN PRN PRN Reason: Saline Flush Sodium Chloride (Flush - Normal Saline) 10 ml IVF PRN PRN PRN Reason: Saline Flush Torsemide (Demadex) 10 mg PO DAILY [facility] Last Admin: 09/20/18 09:00 Dose: Not Given Tramadol HCl (Ultram) 50 mg PO Q6H PRN PRN Reason: Pain
[2018-09-20 15:34] VITALS: BP 146/70
--- NOTE | 2018-09-20 18:43 | OP ---
DATE OF PROCEDURE: 09/20/2018 PROCEDURES: Colonoscopy. PREPROCEDURE DIAGNOSES: 1. Rectal outlet bleeding. 2. Chronic renal insufficiency with uremia. 3. Chronic anemia consistent with anemia of chronic disease. POSTPROCEDURE DIAGNOSES: As noted on previous colonoscopy 8 months ago, he has small internal and external hemorrhoids. I suspect this as his bleeding source and I suspect he will continue to bleed intermittently with his uremia and platelet dysfunction. RECOMMENDATIONS: 1. Fiber and stool softeners, topical Anusol suppository 25 mg. 2. Hemorrhoid surgery would be a last resort with his uremia and low platelets, I suspect that he may continue to bleed intermittently even with the surgery. 3. With regard to the patient's anemia, we will defer to Nephrology and his physician neonatology with whether or not he should start on Epogen to help his anemia. 4. He had a normal upper endoscopy in January as well. I see no need to repeat this. DESCRIPTION OF PROCEDURE: The patient was informed of the risks, benefits, and possible complications of endoscopy including perforation, reaction to medication, and aspiration, and informed consent was obtained. The patient was brought to the endoscopy suite, where he was sedated in gradual fashion. Once he was comfortable, rectal exam was performed, which was normal. The endoscope was advanced through the anal canal into the colon to the cecum, which was identified by ileocecal valve and appendiceal orifice. There was no active bleeding identified. There were small internal hemorrhoids and external hemorrhoids with some red jayme signs, which probably was bleeding sites. There was no evidence of AVMs, polyps, diverticula, or masses. The prep was good. Retroflexed views confirmed the same. The scope was removed. Further documentation was obtained. The patient tolerated the procedure well. No complications. I discussed the findings with his hospital physician neonatology, Dr. Saida Jeronimo. Job ID: [id number]
--- NOTE | 2018-09-20 22:24 | PRG ---
DATE OF SERVICE: 09/20/2018 OBJECTIVE: VITAL SIGNS: The patient was noted to have the following vital signs; temperature 98.9, pulse 105, respiratory rate of 20, O2 saturations are 95%, and blood pressure 164/76. HEENT: Examination unremarkable. Moist oral mucosa. NECK: Supple. No conjunctival injection or icterus. CARDIOVASCULAR: First and second heart sounds were heard. DIGESTIVE: Revealed a benign abdomen. EXTREMITIES: No peripheral edema. SKIN: No new gross rash. LYMPHATICS: No peripheral lymphadenopathy. IMPRESSION: 1. Advanced chronic kidney disease stage 5. 2. Hypertension, suboptimally controlled. 3. Anemia of chronic kidney disease. PLAN: 1. Very close outpatient Nephrology followup strongly recommended. 2. The patient likely to benefit from erythropoiesis stimulating agent. We are looking to administer this. 3. Further management to be dependent on the clinical course. Job ID: [id number]
--- NOTE | 2018-09-21 05:24 | DIS ---
DATE OF ADMISSION: 09/15/2018 DATE OF DISCHARGE: 09/20/2018 PRIMARY CARE PHYSICIAN: Dr. Margi Ferraro. PRIMARY ELECTRONICS PROCESSING SUPERVISOR: Dr. Darion Ferraro. DISCHARGE DIAGNOSES: 1. Uncontrolled hypertension. 2. Acute on chronic kidney disease stage 5. 3. Hematochezia due to internal hemorrhoid, status post colonoscopy. 4. Vertebral artery stenosis, on aspirin and statin. 5. Dyslipidemia. 6. Obesity. 7. History of sarcoidosis. 8. Sleep apnea on CPAP at night. DISCHARGE MEDICATIONS: Dosing changes were done by Dr. Rajan in the hospital. Final discharge medications as follows, 1. Novolin 70/30 of 30 units before meals. 2. Flexeril 5 mg p.o. t.i.d. p.r.n. 3. Doxazosin 8 mg at bedtime. 4. Demadex 10 mg daily. 5. Lipitor 40 mg daily. 6. Ultram p.r.n. 7. Catapres 0.1 mg daily. 8. Minoxidil 20 mg daily. 9. Anusol 25 mg p.o. b.i.d. for 10 more days. 10. Cardura 8 mg once a day. 11. Coreg 25 mg p.o. b.i.d. IN-HOUSE CONSULTATIONS: 1. Nephrology, Dr. Rajan. 2. Gastroenterology, Dr. Black. 3. Cardiology, Dr. Thomas. PROCEDURES DONE IN HOSPITAL: 1. CT scan of the brain upon presentation, which was negative for any acute intracranial findings. 2. CT angio of the head and neck, which did not show any intracranial stenosis, but did show high-grade stenosis at the origin of the right vertebral artery. 3. MRI of the brain on 09/16/2018, which was negative for any acute cerebrovascular accident. He had mild chronic ischemic white matter changes. 4. Renal ultrasound on 09/15/2018, which is normal. 5. Transthoracic echocardiogram, EF 50% to 55% with mild diastolic dysfunction. 6. CT scan of the abdomen and pelvis on 09/17/2018, no definitive acute abnormality was seen. HISTORY OF PRESENTING ILLNESS: Mr. Jacobs is a 48-year-old male with known history of hypertension, chronic kidney disease stage 4 to stage 5, insulin-dependent diabetes mellitus, sarcoidosis, sleep apnea, and dyslipidemia, who presented to the emergency room with complaints of pain in the left hand with swelling and weakness. There was concern for CVA. He had uncontrolled hypertension on presentation with hypertensive urgency with a systolic blood pressure over 200s. He was started on nitroglycerin drip. He was admitted for stroke workup. Please see admission history and physical for further details. Cardiology and Nephrology were consulted by admitting physician, Dr. Vogt, for uncontrolled hypertension. HOSPITAL COURSE: The patient was seen by Dr. Thomas and he adjusted some of the medications and an echocardiogram was done. It showed mild diastolic dysfunction. It was thought that he most likely had a transient ischemic attack. His CVA workup was unremarkable. Dr. Rajan saw the patient for Nephrology and adjusted the medications further. The patient had significant abdominal pain during his hospitalization and a CT scan was done which was negative. He started to have some hematochezia and GI was consulted. The patient has a history of internal hemorrhoids and has had a normal colonoscopy and EGD in 2017, but because of persistent hematochezia which was somewhat symptomatic, Dr. Trujillo took the patient again for colonoscopy. This was once again consistent with internal hemorrhoids only. His H and H remained stable throughout the hospitalization. He was found to be iron deficient and received IV iron. He was also started on erythropoietin. His renal insufficiency has improved to some extent and remains stable otherwise. He will continue to follow up with his primary semiconductor equipment technician, Dr. Darion Ferraro at [facility]. He is cleared by Gastroenterology for discharge today. His blood pressure is under reasonable control with current medication regimen. He will be discharged on same, but this will further need to be clarified from his own semiconductor equipment technician as this is vastly different than his home medications. He is instructed to have a close followup and has an upcoming appointment in [address] Ferraro. He will also follow up with his primary care physician. The patient was seen and examined prior to discharge. Please see hospitalist's progress note from the date of discharge for further details including [id number] interaction. TOTAL TIME SPENT: 32 minutes. Job ID: [id number]
[2018-09-21] MEDS ORDERED: Docusate 100 MG CAP PO SCH (09:00)
--- NOTE | 2018-09-22 02:47 | PRG ---
DATE OF SERVICE: 09/19/2018 SUBJECTIVE: Mr. Jacobs reports he has had some bright red blood again last night and today. His primary provider contacted me, he was very concerned about this. The patient is very concerned about this. It has been painless. His hemoglobin is unchanged with a hemoglobin of 8.7 this morning. PHYSICAL EXAMINATION: GENERAL: He is resting comfortably in bed. VITAL SIGNS: Temperature is 97, pulse 94, blood pressure 160/78. LUNGS: Clear. HEART: Regular rate and rhythm without rubs or murmurs. ABDOMEN: Nontender. ASSESSMENT: 1. Nausea, likely secondary to uremia. He has a BUN of 61 and creatinine of 6.15. He is not on dialysis at this point in time. 2. Rectal bleeding, likely related to hemorrhoids, which were discovered on colonoscopy in 01/2018 at which time he also had a normal EGD. 3. Anemia likely of chronic disease. PLAN: As the patient is very anxious about the ongoing bleeding, he wants something definitive done. We are going to proceed with a flexible sigmoidoscopy tomorrow. If there is no overt etiology, we will do a full colonoscopy and confirm no other bleeding sites. If the hemorrhoids are the obvious bleeding source, then we can talk about surgical referral for treatment as he has already had ongoing bleeding with the use of suppositories. Risks, benefits, possible complications of endoscopy were discussed with the patient and we have kept this scheduled for tomorrow morning. Job ID: [id number]
--- NOTE | 2018-09-22 09:54 | PRG ---
DATE OF SERVICE: SUBJECTIVE: The patient was seen and examined . IMPRESSION: 1. Advanced chronic kidney disease stage 5. 2. , query cause. 3. Hypertension, much improved. PLAN Job ID: [id number]
== END 2018-09-20 16:31 | disposition home or self-care (01) | DRG 305 ==
LOC: ERS 11:50 → ERHOLD 09-15 04:42 → CCU 09-15 09:44 → 2NO 09-16 17:17
PROVIDERS: ADMIT Family Medicine; ATTEND Family Medicine
PROC: 0DJD8ZZ Inspection of Lower Intestinal Tract, Via Natural or Artificial Opening Endoscopic (ICD-10-PCS; principal; 2018-09-20)
DX: I16.0 Hypertensive urgency (principal); N18.5 Chronic kidney disease, stage 5; N17.9 Acute kidney failure, unspecified; K92.1 Melena; I12.0 Hypertensive chronic kidney disease with stage 5 chronic kidney disease or end stage renal disease; D86.9 Sarcoidosis, unspecified; E11.22 Type 2 diabetes mellitus with diabetic chronic kidney disease; E78.5 Hyperlipidemia, unspecified; K64.8 Other hemorrhoids; K64.4 Residual hemorrhoidal skin tags; E66.9 Obesity, unspecified; Z68.39 Body mass index [BMI] 39.0-39.9, adult; E11.21 Type 2 diabetes mellitus with diabetic nephropathy; I65.09 Occlusion and stenosis of unspecified vertebral artery; G47.30 Sleep apnea, unspecified; D63.1 Anemia in chronic kidney disease; Z79.4 Long term (current) use of insulin
CPT/HCPCS: 36415; 36416; 70450; 70496; 70498; 70551; 71045; 74176; 76770; 80048; 80053; 80061; 82607; 82728; 82746; 83036; 83540; 83550; 83970; 84100; 84484; 85014; 85018; 85025; 85610; 85730; 93005; 93306; 96365; 96366; 96375; 96376; C9113; J0360; J1644; J1815; J1825; J2001; J2405; J2704; J2916; J3490; J7050; Q0162; Q4081; Q9966

== ENCOUNTER 2018-10-23 09:44 | Day surgery (SDC) | payer BC ==
[2018-10-22 14:30] VITALS: BMI 39.0
[~2018-10-23 09:44] MED LIST changes: +Cyclopentolate 1% Opth Drop 2 ML BOT ONE; +DEXTROSE 50% FS SCH; -EPINEPHrine 0.3 MG, Dextrose 50% 3 ML in Ophthalmic Irrigation Solution 500 ML FS SCH; +Phenylephrine 2.5% Ophth Soln 5 ML BOT FS SCH; +Phenylephrine 2.5% Ophth Soln 5 ML BOT ONE; -Phenylephrine HCl 2.5% Ophth Soln 5 ML BOT FS SCH
[2018-10-23] MEDS ORDERED: PROPOFOL 200 MG/20 ML VIAL ONE (10:23)
[2018-10-23] MEDS ORDERED: Lidocaine 4% PF 5 ML AMP ONE (10:23)
[2018-10-23] MEDS ORDERED: Bupivacaine 0.75% 10 ML AMP ONE (10:23)
[2018-10-23] MEDS ORDERED: Triamcinolone 40 MG/ML VIAL ONE (10:23)
[2018-10-23] MEDS ORDERED: CEFAZOLIN 1 GM VIAL ONE (10:23)
[2018-10-23] MEDS ORDERED: Lidocaine 1% PF 5 ML VIAL ONE (10:23)
[2018-10-23] MEDS ORDERED: Maxitrol 0.1% Opth Oint 3.5 GM TUBE ONE (10:23)
[2018-10-23] MEDS ORDERED: Fentanyl 100 MCG/2 ML VIAL ONE (10:43)
[2018-10-23] MEDS ORDERED: PROPOFOL 20 ML ONE (10:43)
[2018-10-23] MEDS ORDERED: Midazolam HCl 2 mg/2 ml Vial ONE (10:43)
--- NOTE | 2018-10-23 18:35 | OP ---
DATE OF PROCEDURE: 10/23/2018 PREOPERATIVE DIAGNOSIS: Tractional retinal detachment, left eye. POSTOPERATIVE DIAGNOSIS: Tractional retinal detachment, left eye. PROCEDURES PERFORMED: Pars plana vitrectomy, tractional retinal detachment repair, left eye. ANESTHESIA: Local with monitored anesthesia care. COMPLICATIONS: None. PROCEDURE IN DETAIL: The patient was identified in the preoperative holding area. Appropriate informed consent for the planned surgical procedure on the left eye had been obtained. The patient was transported to the operative suite, where appropriate cardiopulmonary monitoring was established. Local anesthesia was obtained using retrobulbar modified Van Lint lid block using 50:50 mixture of 4% lidocaine and 0.75% bupivacaine. The patient was prepped and draped in usual sterile manner for ophthalmic surgery on the left eye. Lid speculum was placed in the left eye. A 25-gauge trocar was placed through the conjunctiva and sclera superotemporally, inferotemporally, and supranasally. Infusion line was placed inferotemporally. Light pipe vitreous cutter was inserted to the eye. Core vitrectomy was performed. Areas of traction were identified on the retina, and these were carefully dissected and peeled from the retinal surface. Subretinal fluid was aspirated through previously existing retinal breaks. Complete air-fluid exchange was performed. Perfluorooctane was infused into the eye. Panretinal photocoagulation was placed into all non-macular areas of the retina. Perfluorooctane was removed and rents from the posterior pole, and silicone oil was infused into the eye and sclerotomy was suture closed with 7-0 Vicryl suture. Conjunctiva was closed with 6-0 plain gut suture. Retrobulbar Kenalog and subconjunctival Ancef were placed. Antibiotic ointment was placed, and the eye was patched and shielded. The patient was taken to the postoperative recovery unit in good condition, having suffered no immediate perioperative complications. The patient was advised to keep the patch and shield on, avoid flat and back positioning, follow up in the morning with Dr. Waddell. Job ID: [id number]
== END 2018-10-23 13:40 | disposition home or self-care (01) ==
LOC: SDC 09:44
PROVIDERS: ATTEND Ophthalmology Retina Specialist
PROC: 08T53ZZ Resection of Left Vitreous, Percutaneous Approach (ICD-10-PCS; principal; 2018-10-23)
DX: H33.42 Traction detachment of retina, left eye (principal); E66.9 Obesity, unspecified; Z68.39 Body mass index [BMI] 39.0-39.9, adult; Z79.4 Long term (current) use of insulin; Z79.899 Other long term (current) drug therapy
CPT/HCPCS: 36416; C1814; J0690; J2001; J2250; J2704; J3010; J3301; J3490

== ENCOUNTER → 2019-01-22 | Day surgery (SDC) | payer BC ==
[2019-01-21 10:23] VITALS: BMI 40.4
[~2019-01-22] MED LIST changes: -Cyclopentolate 1% Opth Drop 2 ML BOT FS SCH; +Cyclopentolate 1% Opth Drop 2 ML BOT L EYE SCH; -DEXTROSE 50% FS SCH; +EPINEPHrine 0.3 MG, Dextrose 50% 3 ML in Ophthalmic Irrigation Solution 500 ML FS SCH; +Midazolam HCl 2 mg/2 ml Vial ONE; +PROPOFOL 20 ML ONE; -Phenylephrine 2.5% Ophth Soln 5 ML BOT FS SCH; +Phenylephrine 2.5% Ophth Soln 5 ML BOT L EYE SCH
--- NOTE | 2019-01-22 18:38 | OP ---
DATE OF PROCEDURE: 01/22/2019 PREOPERATIVE DIAGNOSIS: Vitreous opacification, left eye. POSTOPERATIVE DIAGNOSIS: Vitreous opacification, left eye. PROCEDURE PERFORMED: Pars plana vitrectomy, membrane peel, left eye. ANESTHESIA: Local with monitored anesthesia care. PROCEDURE IN DETAIL: The patient was identified in the preop holding area. Appropriate informed consent for the planned surgical procedure on the left eye had been obtained. The patient was transported to the operative suite. Appropriate cardiopulmonary monitoring was established. Local anesthesia obtained. Using retrobulbar modified Van Lint lid block using 50:50 mixture of 4% lidocaine and 0.75% bupivacaine. The patient was prepped and draped in usual sterile manner for ophthalmic surgery of left eye. Lid speculum was placed in left eye. A 25-gauge trocar was placed through the conjunctiva and sclera superotemporally, inferotemporally, and supranasally. Infusion line was placed inferotemporally. Supratemporally, a 20-gauge sclerotomy was created with an MVR blade. Viscous fluid removal device was inserted into the eye, and silicone oil was removed. The sclerotomy was suture closed with 7-0 Vicryl suture. Conjunctiva was closed with 6-0 plain gut suture. Vitreous cutter and light pipe were inserted into the eye, and residual membranes were removed. Trocars were removed. The eye was noted to retain pressure well. Retrobulbar Kenalog and subconjunctival Ancef were placed. Antibiotic ointment was placed, and the eye was patched and shielded. The patient was taken to postoperative recovery unit in good condition, having suffered no immediate complications. The patient was instructed to keep patch and shield on, avoid lifting and bending, followup appointment with Dr. Waddell. Job ID: [id number]
== END ==
LOC: SDC 07:17
PROVIDERS: ATTEND Ophthalmology Retina Specialist
PROC: 08NF3ZZ Release Left Retina, Percutaneous Approach (ICD-10-PCS; principal; 2019-01-22)
PROC: 08T53ZZ Resection of Left Vitreous, Percutaneous Approach (ICD-10-PCS; principal; 2019-01-22)
DX: H43.392 Other vitreous opacities, left eye (principal); E11.9 Type 2 diabetes mellitus without complications; Z79.4 Long term (current) use of insulin; Z79.899 Other long term (current) drug therapy
CPT/HCPCS: 36416; J0171; J2250; J2704

== ENCOUNTER 2020-02-29 14:45 | Outpatient (CLI) | payer BC, OTHER ==
[2020-03-01 14:03] LABS: SARS-CoV-2 MS2 Positive; SARS-CoV-2 N Gene Negative; SARS-CoV-2 S Gene Negative; SARS-CoV-2 orf1ab Negative
== END 2020-02-29 14:46 | disposition home or self-care (01) ==
LOC: LABBT 14:45
PROVIDERS: ATTEND Ophthalmology Retina Specialist
DX: Z01.812 Encounter for preprocedural laboratory examination (principal); Z11.59 Encounter for screening for other viral diseases; H57.11 Ocular pain, right eye
CPT/HCPCS: 87635; U0003

== ENCOUNTER 2020-03-03 07:31 | Day surgery (SDC) | payer BC ==
[2020-03-01 09:56] VITALS: BMI 29.2
[~2020-03-03 07:31] MED LIST changes: -Cyclopentolate 1% Opth Drop 2 ML BOT L EYE SCH; -Cyclopentolate 1% Opth Drop 2 ML BOT ONE; +EPINEPHrine 0.3 MG in Ophthalmic Irrigation Solution 500 ML IRR SCH; -EPINEPHrine 0.3 MG, Dextrose 50% 3 ML in Ophthalmic Irrigation Solution 500 ML FS SCH; +Fentanyl 100 MCG/2 ML VIAL ONE; -PROPOFOL 20 ML ONE; -Phenylephrine 2.5% Ophth Soln 5 ML BOT L EYE SCH; -Phenylephrine 2.5% Ophth Soln 5 ML BOT ONE
[2020-03-03] MEDS ORDERED: Cyclopentolate 1% Opth Drop 2 ML BOT ONE (07:47)
[2020-03-03] MEDS ORDERED: Phenylephrine 2.5% Ophth Soln 5 ML BOT ONE (07:47)
[2020-03-03 09:01] LABS: Anion Gap 15 mmol/L (10-20); BUN (Urea Nitrogen) 56 mg/dL (8.4-25.7); Calc. Creatinine Clearance 18 mL/min (70-130); Calcium 8.6 mg/dL (7.8-10.44); Carbon Dioxide 21 mmol/L (22-29); Chloride 108 mmol/L (98-107); Estimated GFR-MDRD 11; Glucose 219 mg/dL (70-105); Sodium 140 mmol/L (136-145)
[2020-03-03] MEDS ORDERED: Famotidine/PF 20 mg/2ml Vial ONE (09:13)
[2020-03-03] MEDS ORDERED: hydrALAZINE 20 MG/ML VIAL ONE (11:36)
[2020-03-03] MEDS ORDERED: PHENYLEPHRINE-NS 100 MCG/ML 10 ML SYRINGE ONE (11:54)
[2020-03-03] MEDS ORDERED: Lidocaine 1% PF 5 ML VIAL ONE ×2 (11:54→11:57)
[2020-03-03] MEDS ORDERED: Ondansetron PF 4 MG/2 ML Vial ONE (11:54)
[2020-03-03] MEDS ORDERED: Metoclopramide HCl 10 MG/2 ML VIAL ONE (11:54)
[2020-03-03] MEDS ORDERED: EPHEDRINE 25 MG/5 ML SYRINGE ONE (11:54)
[2020-03-03] MEDS ORDERED: PROPOFOL 200 MG/20 ML VIAL ONE (11:54)
[2020-03-03] MEDS ORDERED: Bupivacaine PF 0.75% SDV 10 ML ONE (11:57)
[2020-03-03] MEDS ORDERED: Triamcinolone 40 MG/ML VIAL ONE (11:57)
[2020-03-03] MEDS ORDERED: Maxitrol 0.1% Opth Oint 3.5 GM TUBE ONE (11:57)
[2020-03-03] MEDS ORDERED: Atropine Sulfate 1% Ophth Ointment 3.5 gm Tube ONE (11:57)
[2020-03-03] MEDS ORDERED: Lidocaine 4% PF 5 ML AMP ONE (11:57)
[2020-03-03] MEDS ORDERED: CEFAZOLIN 1 GM VIAL ONE (11:57)
--- NOTE | 2020-03-04 13:40 | OP ---
DATE OF PROCEDURE: 03/03/2020 PREOPERATIVE DIAGNOSES: Glaucoma and cataract in the right eye. POSTOPERATIVE DIAGNOSES: Glaucoma and cataract in the right eye. PROCEDURES PERFORMED: Pars plana vitrectomy, pars plana lensectomy, and tube shunts placed between external reservoir, right eye. ANESTHESIA: General endotracheal anesthesia. DESCRIPTION OF PROCEDURE: The patient was identified in the preoperative holding area. Appropriate informed consent for the planned surgical procedure on the right eye had been obtained. The patient was transported to the operative suite, appropriate cardiopulmonary monitoring established. General endotracheal anesthesia was initiated. The patient was prepped and draped in the usual sterile manner for ophthalmic surgery on the right eye. Lid speculum was placed in the right eye. Superior temporal conjunctival peritomy was created by sharp dissection with Juanita scissors. An FP7 tube shunt was fixated superior temporally 14 mm posterior to the limbus using 5-0 [place] sutures. Sclerotomy was created superotemporally, inferotemporally, and supranasally. A 20-gauge sclerotomy was created superiorly. Vitrectomy was performed blindly on the anterior vitreous and the fragmatome was then inserted through a superior sclerotomy. The lens was emulsified and removed from the eye along with the lens capsule. Vitreous was then removed as was the silicone oil that had been present within the eye. Superior sclerotic 20-gauge sclerotomy was then sutured closed and the tube shunt was introduced through a 22-gauge sclerotomy superior temporally. Edge of the tube was covered with Tutoplast, which was fixated in place with 7-0 Vicryl suture. Conjunctiva was closed with 6-0 plain gut sutures. Remaining trocars removed. Eye was noted to retain pressure well. Retrobulbar Kenalog sequential Ancef was placed. Antibiotic ointment was placed. Eye was patched and shielded. The patient taken to postop recovery unit in good condition having suffered no immediate perioperative complications. The patient was instructed to keep patch shield on, avoid lifting or bending. Followup appointment with Dr. Waddell. Job ID: [id number]
== END 2020-03-03 12:30 | disposition home or self-care (01) ==
LOC: SDC 07:31
PROVIDERS: ATTEND Ophthalmology Retina Specialist
PROC: 08123J4 Bypass Right Anterior Chamber to Sclera with Synthetic Substitute, Percutaneous Approach (ICD-10-PCS; principal; 2020-03-03)
DX: H40.2213 Chronic angle-closure glaucoma, right eye, severe stage (principal); H25.11 Age-related nuclear cataract, right eye; Z79.899 Other long term (current) drug therapy
CPT/HCPCS: 80048; J0171; J0360; J0690; J2001; J2250; J2405; J2704; J2765; J3010; J3301; J3490; L8612; S0028